=== PATIENT | female | born 1945 | race Caucasian/White ===

== ENCOUNTER 2019-08-02 11:09 | Outpatient (CLI) | payer MEDICARE, OTHER, SELFPAY ==
--- NOTE | ~2019-08-02 | XR_ITS ---
XR chest 2V DATE: 08/02/2019 11:36 INDICATION: Pre-procedure examination TECHNIQUE: PA view COMPARISON: 02/09/2017 FINDINGS: Normal heart size. No hilar or mediastinal enlargement. No pulmonary infiltrate or consol idation, pulmonary vascular congestion or pleural effusion or pneumothorax. Diffuse osteopenia. Plate and screws are noted in the proximal humerus. Diffuse idiopathic skeletal hyperostosis of the thoracic spine. Surgical clips, upper abdomen. IMPRESSION: No active cardiopulmonary disease Reviewed, dictated and finalized at location B. VISION JOURNALIST
--- NOTE | 2019-08-02 11:15 | ECG_ITS ---
Measurements Intervals [place] Rate: 85 P: 9 ND: 150 QRS: 1 QRSD: 86 T: -15 QT: 340 QTc: 406 Interpretive Statements SINUS RHYTHM BORDERLINE T WAVE ABNORMALITY- INFERIOR LEADS BORDERLINE ECG Electronically Signed On 08-02-2019 11:40:35 DELIVERY MANAGER by Chidi Lewis D.O.
[2019-08-02 11:43] LABS: Hematocrit 38.1 % (35.0-42.0); Hemoglobin 11.8 g/dL (11.7-13.8); Mean Corpuscular Hemoglobin 27.5 pg (27.0-31.0); Mean Corpuscular Volume 88.8 fL (78.0-102.0); Mean Platelet Volume 9.3 fl (9.2-11.8); Platelet Count Result 169 K/mm3 (150-420); Red Blood Count 4.29 M/mm3 (4.20-5.40); Red Cell Distribution Width 13.5 % (11.6-14.4); White Blood Count 6.4 K/mm3 (4.8-10.8)
[2019-08-02 11:49] LABS: Add Urine Microscopic? YES; Appearance Urine Clear (Clear); Bilirubin Urine Negative (Negative); Blood Urine Negative (Negative); Color Urine Yellow (Yellow); Glucose Urine UA 2+ (Negative); Ketones Urine Negative (Negative); Leukocyte Esterase Ur Negative LEU/UL (Negative); Nitrate Urine Negative (Negative); Protein Urine Negative (Negative); Specific Grav Ur 1.015 (1.010-1.020); Urobilinogen Urine 0.2 mg/dL (0.2-1.0)
[2019-08-02 12:14] LABS: RBC Urine None seen /hpf (0-2); Squamous Epithelial Cell Urine Rare /hpf (Few); WBC Urine None seen /hpf (0-3)
[2019-08-02 12:15] LABS: Bacteria Urine Trace /hpf
[2019-08-03 10:47] LABS: Alanine Aminotransferase 18 U/L (14-59); Alkaline Phosphatase 118 U/L (46-116); Anion Gap 13.8 mmol/L (7-16); Aspartate Amino Transferase 8 U/L (15-37); Bilirubin,Total 0.3 mg/dL (0.00-1.00); Blood Urea Nitrogen 23 mg/dL (7-18); Calcium 8.1 mg/dL (8.5-10.1); Carbon Dioxide 30 mmol/L (21-32); Chloride 104 mmol/L (98-108); Estimated Glomerular Filt Rate 53; Glucose 152 mg/dL (70-99); Osmolality Calculated 304 mOsm/kg (285-295); Potassium 3.8 mmol/L (3.5-5.1); Sodium 144 mmol/L (136-145); Total Protein 6.7 g/dL (6.4-8.2)
== END 2019-08-02 11:10 | disposition home or self-care (01) ==
PROVIDERS: Visit Provider Nurse Practitioner Family
DX: Z01.818 Encounter for other preprocedural examination (principal)
CPT/HCPCS: 36415; 71046; 80053; 81001; 85027; 93005

== ENCOUNTER 2019-08-12 11:14 | Observation (INO) | payer MEDICARE, OTHER, SELFPAY ==
[2019-08-05 08:50] VITALS: BMI 30.1
[2019-08-05 09:01] VITALS: BP 169/73; PULSE 82; RESP 18; TEMP 36.9; O2SAT 98
[2019-08-11] VITALS (14 sets, daily range): BP systolic 132–160; BP diastolic 53–90; PULSE 81–104; RESP 11–20; TEMP 36.3–36.7; O2SAT 91–100; BMI 29.3
[2019-08-11] MEDS: IBUPROFEN IV 800 MG/200 ML 800 MG/200 ML BAG 400 MG IVPB (06:45)
[2019-08-11 06:46] LABS: Glucose Point of Care 112 (65-105)
[2019-08-11] MEDS: LACTATED RINGERS 1,000 ML 30 ML IV CONT ×2 (06:59→09:44)
--- NOTE | 2019-08-11 07:11 | WPDANESEPPF ---
Anes - Initial Pre Proc Eval Procedure: Operation Date: 08/11/19 07:30 Proposed Procedures p Left Total Knee Arthroplasty(Left) - Charli Tello MD Date/Time: 08/11/19 07:11 Surgeon: Charli Tello MD Pre Op Diagnosis: Left Knee DJD Patient Data Age: 73 Gender: F Height: 1.55 m Weight: 70.4 kg Last Vital Signs Temp 36.7 C 08/11/19 06:01 Pulse 103 H 08/11/19 06:01 Resp 18 08/11/19 06:01 BP 160/90 H 08/11/19 06:01 Pulse Ox 100 08/11/19 06:01 Allergies Allergy/AdvReac Type Severity Reaction Status Date / Time No Known Allergies Allergy Verified 08/11/19 06:50 Home Medications Medication Instructions Recorded Confirmed Type [id number]-[id number] acid 0.4 1 tablet PO DAILY 06/04/19 08/11/19 History mg-lycopene 300 mcg-lutein 250 mcg tablet dulaglutide 0.75 mg/0.5 mL 0.75 mg SUB-Q WEEKLY #2 ml 06/22/19 08/11/19 Rx subcutaneous pen injector blood sugar diagnostic #100 each 07/29/19 08/11/19 Rx blood-glucose meter #1 each 07/29/19 08/11/19 Rx glimepiride 4 mg tablet 4 mg PO DAILY #90 tablet 07/29/19 08/11/19 Rx omeprazole 40 mg capsule,delayed 40 mg PO DAILY #90 cap 07/29/19 08/11/19 Rx release aspirin 81 mg tablet,delayed 81 mg PO DAILY #90 tablet 08/02/19 08/11/19 Rx release cholecalciferol (vitamin D3) 4,000 4,000 unit PO DAILY #90 cap 08/02/19 08/11/19 Rx unit capsule lancets 33 gauge #100 each 08/02/19 08/11/19 Rx acetaminophen [Tylenol Arthritis 650 mg PO Q12H PRN 08/05/19 08/11/19 History Pain] trazodone 100 mg PO HS 08/05/19 08/11/19 History mupirocin 2 % topical ointment 1 applic TOPICAL BID 5 Days #15 gm 08/09/19 08/11/19 Rx atorvastatin 40 mg tablet 20 mg PO DAILY #45 tablet 08/10/19 08/11/19 Rx Laboratory Tests 08/11/19 06:42 POC Capillary Glucose 112 mg/dl H mg/dl (65-105) Patient hx anesthesia problems: none Family hx anesthesia problems: none PMFSH Social History Social History Smoking status: Never smoker Alcohol intake: current Substance use: unknown Gender identity (if verbalized by the patient): Female Anes - Eval Final PreProcedure Day of Procedure 08/11/19 07:11 Patient weight: overweight Heart: regular rate and rhythm Lungs: clear to auscultation and normal air movement Airway: Mallampati scale class II Neurological: alert and oriented Last oral intake: >/= 8 hours ASA classification: III Emergent: no Anesthetic plan: proceed Anesthesia type and monitoring: general LMA and standard monitoring Informed Consent: The patient's anesthetic plan and its attendant risks and benefits were discussed with the patient/family/POA. Questions were solicited and answers provided to the satisfaction of the patient/family/POA.
--- NOTE | 2019-08-11 07:24 | WPDHPUPDATE1 ---
History and Physical Update Update Date/Time: 08/11/19 07:24 History and Physical has been reviewed, including an updated exam of the patient. There are NO changes in the patient's condition. Risks, benefits, and alternatives have been discussed and questions answered. Patient agrees to proceed with procedure.
[2019-08-11] MEDS: ceFAZolin 2 GM/D5W 50 ML 2 GM/50 ML BAG IVPB ×2 (07:43→16:46)
--- NOTE | 2019-08-11 07:43 | WPDANESPNB ---
Anes - Peripheral Nerve Block Date/Time: 08/11/19 07:43 I have discussed with the patient/family/POA the placement of a peripheral nerve block for post-operative pain management, including associated risks, benefits, complications, and side effects. Alternative methods of post-operative analgesia were detailed. Questions were solicited and answers provided to the satisfaction of the patient/family/POA. Time-Out: A pre-procedural Time-Out was completed immediately before starting the procedure and confirmed: Patient Identification, Site, Procedure, Patient Position and the Availability of Requisite Equipment. Clinical Indications: Acute post-operative pain management requested by the operative surgeon. Nerve Block Insertion Note Anes-nerve block: femoral left Patient position: supine Skin prep: chlorhexidine Needle: 22 gauge, stimulating, insulated echogenic needle. Needle length: 80 mm Technique: nerve stimulation lost at (mA) (0.3) and ultrasound Injectate: bupivacaine 0.5% with epi 5 mcg/ml (30cc) Observations: tolerated well Complications: none Procedure start time:: 736 Procedure end time:: 739
[2019-08-11] MEDS: GENTAMICIN BONE CEMENT REFOBACIN 1 EACH TOPICAL (08:44)
--- NOTE | 2019-08-11 09:51 | PM.OP ---
Procedure Note - Brief Procedure Note - Brief Date of procedure: 08/11/19 Pre-op diagnosis: Left Knee DJD Post-op diagnosis: same Procedure performed: L TKA Anesthesia: GETA Surgeon: Charli Tello MD Estimated blood loss (mL): 50 Drains: No Complications: No immediate complications Condition: stable Disposition: PACU
[2019-08-11 10:07] LABS: Glucose Point of Care 156 (65-105)
--- NOTE | 2019-08-11 10:55 | OP_ITS ---
DATE OF PROCEDURE: 08/11/2019 PREOPERATIVE DIAGNOSIS: Left knee DJD. POSTOPERATIVE DIAGNOSIS: Left knee DJD. PROCEDURE: Left total knee arthroplasty. ANESTHESIA: General. COMPLICATIONS: None. INDICATIONS: This is a 73-year-old female with a history of end-stage left knee DJD. She was indicated for left total knee arthroplasty. DESCRIPTION OF PROCEDURE: The patient was taken to the operating room in stable condition and placed in supine position. General anesthesia induced. The left lower extremity was prepped and draped sterilely from the toes to the thigh. A midline skin incision was made. Medial parapatellar arthrotomy was made. The patella was everted. IM lupe was placed in the femur. Distal femoral cut was made at 5 degrees of valgus removing approximately 9 mm of bone from the high side. Next, the knee was sized to 60, cutting block was placed in 3 degrees of external rotation in line with Whitesides line. Anterior, posterior, and chamfer cuts were made to the femur. Next, an IM lupe was placed in the tibia and a transtibial cut was made removing approximately 10 mm of bone from the high side of the tibia. The tibia was planed to a smooth surface. Posterior osteophytes were removed from the femur with an osteotome and a #67 trial tibial implant was placed in line with one-third medial aspect of the tibial tubercle and then, a 60 femoral component trial was placed and then a 10 CR poly trial was placed. The knee came out to full extension. There was good stability in varus and valgus stress in both flexion and extension. There was good AP stability and there was no excessive rollback in flexion. The patella tracked without any tilt. Trial instrumentation was removed. The knee joint was irrigated thoroughly and then, a 67 tibial component and a 60 femoral component were both cemented into place. A 10 CR E poly component was snapped into place as well. The knee came out to full extension until the cement was hardened, excess cement was removed from the implant. The tourniquet was deflated. The bleeders were cauterized. The knee was trialed once again. There was good stability to varus and valgus stress. Good AP stability. Good patellar tracking without any tilt and there was no excessive rollback in flexion. The knee joint then was irrigated thoroughly with sterile Betadine and sterile water for 3 minutes. The fascial layer then was approximated with #1 Vicryl suture, subcutaneous tissues with 2-0 Vicryl, and skin was approximated with amadou. Wounds were washed, placed sterile dressing. The patient was extubated. Jas I MT: Joy
--- NOTE | 2019-08-11 10:58 | SUR.PHASEI ---
1015: Dentures/partials given to patient and she placed them in her mouth.
--- NOTE | 2019-08-11 11:59 | PC.NURSE ---
Returned from OR per [ 1115 BED DENIES THE NEED FOR PAIN MEDS MOVES TOES, SENSATION NORMAL, PULSES INTACT, DRESSING DRY AND INTACT FAMILY AT BEDSIDE.]
[2019-08-11] MEDS: MORPHINE SULFATE 4 MG/ML INJ IV PUSH ×2 (13:02→20:06)
[2019-08-11] MEDS: ONDANSETRON INJ 4 MG/2 ML VIAL IV PUSH ×2 (13:11→20:32)
--- NOTE | 2019-08-11 13:41 | ADMGEN ---
This patient, Megan Rueda, was admitted to [facility] Surg Room 317-01. Patient/family oriented to hospital policies and general routines including ID bracelet, bed and alarms, visiting hours, pain management, procedures, bathroom and other care routines, personal items, smoking policy, room service/diet, and visiting hours. Valuables list has been completed. Information on how to activate the Rapid Response Team has been discussed. Patient/Family are encouraged to report perceived risks to care and to ask questions if they do not understand what they are told or what they should do.
[2019-08-11 18:16] LABS: Glucose Point of Care 195 (65-105)
[2019-08-11] MEDS: SODIUM CHLORIDE 0.9% IV 1,000 ML 125 ML IV CONT (18:36)
[2019-08-11] MEDS: CELECOXIB 200 MG CAPSULE PO (18:37)
[2019-08-11] MEDS: DOCUSATE SODIUM 100 MG CAPSULE PO (18:37)
[2019-08-11] MEDS: MUPIROCIN 2% OINT 22 GM TUBE 1 APPLIC TOPICAL (20:11)
[2019-08-11 20:23] LABS: Glucose Point of Care 157 (65-105)
[2019-08-11] MEDS: METOCLOPRAMIDE HCL INJ 10 MG/2 ML VIAL IV PUSH (22:01)
--- NOTE | ~2019-08-12 | XR_ITS ---
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 Subcutaneous gas with fluid and air in the joint and overlying skin amadou are consistent with recent surgery. No evidence of pe riprosthetic fracture. IMPRESSION: 1. Recent left total knee arthroplasty. Reviewed, dictated and finalized at location B. 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
[2019-08-12] MEDS: MORPHINE SULFATE 4 MG/ML INJ IV PUSH ×2 (00:29→04:10)
[2019-08-12] MEDS: ceFAZolin 2 GM/D5W 50 ML 2 GM/50 ML BAG IVPB ×2 (01:14→09:32)
[2019-08-12 02:19] VITALS: BP 123/67; PULSE 98; RESP 18; TEMP 36.7; O2SAT 96
[2019-08-12 06:53] VITALS: BP 140/68; PULSE 98; RESP 20; TEMP 36.9; O2SAT 94
[2019-08-12 07:15] LABS: Basophils Percent Auto 0.3 % (0.2-1.2); Eosinophils Percent Auto 0.4 % (0-4.4); Hematocrit 31.9 % (37.0-47.0); Hemoglobin 10.1 g/dL (12.0-15.0); Immature Granulocyte Absolute 0.04 K/mm3 (0.00-0.031); Immature Granulocyte Percent A 0.6 % (0-0.5); Lymphocytes Absolute Auto 0.92 K/mm3 (0.9-3.2); Lymphocytes Percent Auto 12.9 % (18.3-44.2); Mean Corpuscular HGB Conc 31.7 g/dl (32-36); Mean Corpuscular Hemoglobin 27.5 pg (26-34); Mean Corpuscular Volume 86.9 fl (80-100); Mean Platelet Volume 9.8 fl (7.4-10.4); Monocytes Absolute Auto 0.7 K/mm3 (0.1-0.6); Neutrophils Absolute Auto 5.4 K/mm3 (1.3-6.7); Neutrophils Percent Auto 75.8 % (45.5-73.1); Platelet Count Result 175 k/mm3 (150-375); Red Blood Count 3.67 M/mm3 (4.2-5.4); Red Cell Distribution Width 13.3 % (11.5-14.5); White Blood Count 7.1 K/mm3 (4.5-10.0)
[2019-08-12 07:48] LABS: Blood Urea Nitrogen 16 mg/dL (7-17); Calcium 8.9 mg/dL (8.4-10.2); Carbon Dioxide 27 mmol/L (22-30); Chloride 97 mmol/L (98-107); Estimated CRCL calculation 47 ml/min; Estimated Glomerular Filt Rate > 60; Glucose 146 mg/dL (65-105); Sodium 133 mmol/L (137-145)
--- NOTE | 2019-08-12 08:39 | WPDANESPN ---
Anes - Prog Note Post-Op Date/Time: 08/12/19 08:39 Cardiovascular status: normal Respiratory status: normal Airway patency: baseline Mental status: baseline Post-Op hydration status: normal Vital Signs: Last Vital Signs Temp 36.9 C 08/12/19 06:53 Pulse 98 08/12/19 06:53 Resp 20 08/12/19 06:53 BP 140/68 08/12/19 06:53 Pulse Ox 94 08/12/19 06:53 I/O: Intake & Output 08/11/19 08/12/19 08/12/19 23:59 07:59 15:59 Intake Total 850 1180 Output Total 200 800 Balance 650 380 Laboratory Tests 08/12/19 07:02 08/12/19 07:02 08/11/19 08/11/19 08/11/19 10:05 16:40 20:19 WBC RBC Hgb Hct MCV MCH MCHC RDW Plt Count MPV Immature Gran % (Auto) Neut % (Auto) Lymph % (Auto) Angelina % (Auto) Eos % (Auto) Baso % (Auto) Lymph # (Auto) Angelina # (Auto) Eos # (Auto) Baso # (Auto) Abs Immat Gran (auto) Absolute Neuts (auto) Absolute Nucleated RBC Nucleated RBC % Sodium Potassium Chloride Carbon Dioxide BUN Creatinine Estim Creat Clear Calc Estimated GFR Glucose POC Capillary Glucose 156 H 195 H 157 H Calcium 08/12/19 08/12/19 07:02 07:02 WBC 7.1 RBC 3.67 L Hgb 10.1 L Hct 31.9 L MCV 86.9 MCH 27.5 MCHC 31.7 L RDW 13.3 Plt Count 175 MPV 9.8 Immature Gran % (Auto) 0.6 H Neut % (Auto) 75.8 H Lymph % (Auto) 12.9 L Angelina % (Auto) 10.0 H Eos % (Auto) 0.4 Baso % (Auto) 0.3 Lymph # (Auto) 0.92 Angelina # (Auto) 0.7 H Eos # (Auto) 0.0 Baso # (Auto) 0.0 Abs Immat Gran (auto) 0.04 H Absolute Neuts (auto) 5.4 Absolute Nucleated RBC 0.0 Nucleated RBC % 0.0 Sodium 133 L Potassium 4.0 Chloride 97 L Carbon Dioxide 27 BUN 16 Creatinine 0.80 Estim Creat Clear Calc 47 Estimated GFR > 60 Glucose 146 H POC Capillary Glucose Calcium 8.9 Post-procedural complaints: none Patient Feedback: Patient satisfied with anesthetic care.
[2019-08-12] MEDS: SODIUM CHLORIDE 0.9% IV 1,000 ML 125 ML IV CONT (09:23)
[2019-08-12] MEDS: CELECOXIB 200 MG CAPSULE PO ×2 (09:24→16:22)
[2019-08-12] MEDS: GLIMEPIRIDE 2 MG TABLET 4 MG PO (09:24)
[2019-08-12] MEDS: ATORVASTATIN 20 MG TABLET PO (09:25)
[2019-08-12] MEDS: ASPIRIN 325 MG ENTERIC TABLET 650 MG PO (09:25)
[2019-08-12] MEDS: CHOLECALCIFEROL 1,000 UNIT TABLET 4000 UNITS PO (09:25)
[2019-08-12] MEDS: DOCUSATE SODIUM 100 MG CAPSULE PO ×2 (09:26→16:22)
[2019-08-12] MEDS: MULTIVITAMINS /C LUTEIN (CENTRUM SILVER) TABLET *BKC 1 TAB PO (09:26)
[2019-08-12] MEDS: PANTOPRAZOLE 40 MG TABLET PO (09:26)
[2019-08-12] MEDS: MUPIROCIN 2% OINT 22 GM TUBE 1 APPLIC TOPICAL ×2 (09:34→21:34)
[2019-08-12 09:46] LABS: Glucose Point of Care 145 (65-105)
--- NOTE | 2019-08-12 10:49 | PM.PNORT ---
Progress Note: A&P Assessment and Plan (1) Status post total knee replacement, left: Code(s): Z96.652 - Presence of left artificial knee joint Status: Acute Assessment and Plan: POD #1: Left TKA Continue PT/OT. Walker. High Fall Risk. WBAT. Continue pain management. Ice. No pillows under knee. Continue SCDs. Incentive spirometry. Zofran for nausea. Monitor dressing. To be changed prior to discharge. Dispo: Home with Home Health pending progress with PT/OT. Subjective Subjective Date/Time Seen: 08/12/19 0840 Post Op day: 1 Principal diagnosis: Left Knee DJD Interval history: Left TKA POD #1 Complaints of nausea. No vomitting. Decreased appetite. No anti-emetics administered since 8:00 PM last night. Review of Systems Review of Systems: All systems reviewed & are unremarkable except as noted in HPI and below Constitutional: Constitutional: Denies fever(s) and Denies headache(s) Cardiovascular: Cardiovascular: Denies chest pain, Denies diaphoresis, Reports lightheadedness, Denies palpitations and Denies dyspnea Respiratory: Respiratory: Denies dyspnea Gastrointestinal: Gastrointestinal: Denies abdominal pain, Denies constipation, Reports nausea and Denies vomiting Genitourinary: Genitourinary: Reports nocturia and Denies dysuria Musculoskeletal: Musculoskeletal: Reports arthralgias (Left Knee ), Reports joint swelling (Left Knee ) and Reports limited range of motion (ROM limited due to recent surgical intervention LEFT Knee ) Endocrine: Endocrine: Denies palpitations Exam Const: General: comfortable and no acute distress Resp: Effort & Inspection: normal respiratory effort Cardio: Rate: regular rate Rhythm: regular rhythm GI: GI Palp: Yes Soft to palpation, No Tenderness to palpation present (GI) and No Guarding due to palpation present (GI) Skin: Wounds: wounds noted Other: Incision c/d/i. No surrounding redness/warmth. No hematoma. Mild ecchymosis. No wound dehiscence Neuro: Cognition (Neuro): normal cognition Other: NV intact aside from block. Moves toes. Sensation intact to light touch. +ankle dorsiflexion/plantarflexion. Extrem: Right upper extremity: normal to inspection, full ROM and normal capillary refill Left upper extremity: normal to inspection, full ROM and normal capillary refill Right lower extremity: normal to inspection, full ROM (ROM limited due to recent surgical intervention ) and knee (previous right TKA incision well-healed ) Details: normal ROM; no tenderness and no swelling Left lower extremity: normal to inspection, normal capillary refill and knee Details: tenderness (diffuse ), swelling (moderate consistent to recent surgery ), abnormal ROM (limited due to recent surgery ) and ecchymosis (as expected with recent surgery. NO hematoma. ) Other: Incision left TKA dressing c/d/i. No hematoma. No signs of infection. No wound dehiscence. Psych: Mental Status: mental status grossly normal Objective Data Vital Signs Vital Signs: Vital Signs - 24 hr 08/11/19 10:55 08/11/19 11:05 08/11/19 11:25 Temperature 36.5 C Pulse Rate 83 86 93 Respiratory Rate 11 L 14 16 Blood Pressure 147/67 H 136/69 146/57 H Pulse Oximetry 96 95 91 08/11/19 11:40 08/11/19 11:41 08/11/19 12:10 Temperature Pulse Rate 81 86 89 Respiratory Rate 16 14 16 Blood Pressure 132/75 142/64 H Pulse Oximetry 99 95 96 08/11/19 15:16 08/11/19 21:30 08/12/19 02:19 Temperature 36.6 C 36.4 C L 36.7 C Pulse Rate 101 H 104 H 98 Respiratory Rate 16 20 18 Blood Pressure 145/53 H 156/76 H 123/67 Pulse Oximetry 92 96 96 08/12/19 06:53 Temperature 36.9 C Pulse Rate 98 Respiratory Rate 20 Blood Pressure 140/68 Pulse Oximetry 94 Intake/Output Intake/Output: Intake & Output 08/09/19 08/10/19 08/11/19 08/12/19 23:59 23:59 23:59 23:59 Intake Total 1350 1450 Output Total 200 800 Balance 1150 650 Meds/Results Medications: Active Medications Generic Name D
[2019-08-12 13:01] LABS: Glucose Point of Care 139 (65-105)
--- NOTE | 2019-08-12 15:05 | PM.IMCN ---
Assessment and Plan Assessment and plan (1) Status post total knee replacement, left: Code(s): Z96.652 - Presence of left artificial knee joint Status: Acute Assessment and Plan: POD1 per Dr. Tello. Patient is doing well postoperatively Pain management, PT/OT, post op management, DVT ppx per Dr. Tello Monitor (2) Left knee DJD: Qualifiers: Osteoarthritis type: primary Qualified Code(s): M17.12 - Unilateral primary osteoarthritis, left knee Code(s): M17.12 - Unilateral primary osteoarthritis, left knee Status: Acute Assessment and Plan: POD 1 L total knee arthroplasty. Please see above a/p (3) GERD without esophagitis: Code(s): K21.9 - Gastro-esophageal reflux disease without esophagitis Status: Acute Assessment and Plan: Stable at this moment Continue home medications Tums PRN (4) Type 2 diabetes mellitus: Code(s): E11.9 - Type 2 diabetes mellitus without complications Status: Acute Assessment and Plan: BGL reasonably controlled. BGL in mid 100s today Hypoglycemia, SSI, ACHS accuchecks Continue home glimeperide. Hold [facility] Check A1c tomorrow should patient stay overnight (5) Hyperlipidemia associated with type 2 diabetes mellitus: Code(s): E11.69 - Type 2 diabetes mellitus with other specified complication; E78.5 - Hyperlipidemia, unspecified Status: Acute Assessment and Plan: No acute issues Continue home atorvastatin Additional Plan Thank you for allowing the Hospitalist team to care for this patient during their stay. We will continue to follow with you. Please call with any questions HPI Data of Consult Consult date: 08/12/19 Requesting Physician: Charli Tello MD Primary Care Provider: UNKNOWN,DOCTOR Consult Narrative Narrative: Megan Rueda is a 73 year old female with history of DMII, HLD, RA, and DJD of left knee POD 1 left total knee arthroplasty per Dr. Tello; Hospitalist Service has been consulted for medical management of comorbid conditions. Patient states she started having left knee pain after having what sounds like a left knee arthroscopy 2 years ago for a torn meniscus; she states ever since then the pain has progressively worsened. She attempted PT/OT, steroid injections, and other pain management to a point that nothing was alleviating pain and she elected to proceed with the left total knee arthroplasty. She states left knee pain at its worse was 10/10, but today is about a 0/10 laying in bed, postoperatively. She denies any decrease sensation in her leg. She notes she has RA in multiple joints. Today she feels slightly dizzy/lightheaded, but occasional. N/V yesterday but none today. She has no other complaints. Denies f/c/ns, headaches, changes in vision/hearing, n/v/d/c today, abdominal pain, cp/palpitations, sob, cough, dysuria, hematuria, changes in BM, melena, brbpr, calf pain/swelling, s/sx of stroke. Review of Systems Review of Systems: All systems reviewed & are unremarkable except as noted in HPI and below PMFSH Past Medical History Medical History Acute pain of left knee GERD without esophagitis Hyperlipidemia associated with type 2 diabetes mellitus Hypothyroidism Kidney disease Rheumatoid arthritis Type 2 diabetes mellitus Vision loss Vitamin D deficiency Surgical History Surgical History H/O right nephrectomy H/O total thyroidectomy History of appendectomy History of rotator cuff surgery Hx of cholecystectomy Hx of tonsillectomy Status post total knee replacement, left Family History Family History (Reviewed 08/12/19 @ 15:51 by Isaias Lamas
[2019-08-12 16:01] VITALS: BP 138/74; PULSE 101; RESP 18; O2SAT 97
[2019-08-12] MEDS: CALCIUM CARBONATE (TUMS) 500 MG (200 MG ELEMENTAL) PO (16:22)
[2019-08-12 17:23] LABS: Glucose Point of Care 138 (65-105)
[2019-08-12] MEDS: TRAZODONE HCL 50 MG TABLET 100 MG PO (21:32)
[2019-08-12 22:00] VITALS: BP 140/50; PULSE 100; RESP 20; TEMP 37; O2SAT 97
[2019-08-12 23:09] LABS: Glucose Point of Care 155 (65-105)
[2019-08-13 06:00] VITALS: BP 151/64; PULSE 105; RESP 20; TEMP 36.9; O2SAT 97
[2019-08-13 06:03] LABS: Basophils Percent Auto 0.3 % (0.2-1.2); Eosinophils Absolute Auto 0.1 K/mm3 (0-0.3); Eosinophils Percent Auto 0.9 % (0-4.4); Hematocrit 31.4 % (37.0-47.0); Hemoglobin 9.8 g/dL (12.0-15.0); Immature Granulocyte Absolute 0.04 K/mm3 (0.00-0.031); Immature Granulocyte Percent A 0.6 % (0-0.5); Lymphocytes Absolute Auto 1.17 K/mm3 (0.9-3.2); Lymphocytes Percent Auto 18.1 % (18.3-44.2); Mean Corpuscular HGB Conc 31.2 g/dl (32-36); Mean Corpuscular Hemoglobin 27.5 pg (26-34); Mean Platelet Volume 10.1 fl (7.4-10.4); Monocytes Absolute Auto 0.7 K/mm3 (0.1-0.6); Monocytes Percent Auto 10.2 % (2.6-8.5); Neutrophils Absolute Auto 4.5 K/mm3 (1.3-6.7); Neutrophils Percent Auto 69.9 % (45.5-73.1); Platelet Count Result 154 k/mm3 (150-375); Red Blood Count 3.57 M/mm3 (4.2-5.4); Red Cell Distribution Width 13.4 % (11.5-14.5); White Blood Count 6.5 K/mm3 (4.5-10.0)
[2019-08-13 06:22] LABS: Blood Urea Nitrogen 20 mg/dL (7-17); Calcium 9.3 mg/dL (8.4-10.2); Carbon Dioxide 30 mmol/L (22-30); Chloride 100 mmol/L (98-107); Estimated CRCL calculation 43 ml/min; Estimated Glomerular Filt Rate > 60; Glucose 132 mg/dL (65-105); Potassium 3.9 mmol/L (3.4-5.0); Sodium 138 mmol/L (137-145)
[2019-08-13 08:00] VITALS: PULSE 80; RESP 20; O2SAT 97
[2019-08-13] MEDS: CELECOXIB 200 MG CAPSULE PO (08:20)
[2019-08-13] MEDS: GLIMEPIRIDE 2 MG TABLET 4 MG PO (08:21)
[2019-08-13] MEDS: ASPIRIN 325 MG ENTERIC TABLET 650 MG PO (08:21)
[2019-08-13] MEDS: CHOLECALCIFEROL 1,000 UNIT TABLET 4000 UNITS PO (08:22)
[2019-08-13] MEDS: MULTIVITAMINS /C LUTEIN (CENTRUM SILVER) TABLET *BKC 1 TAB PO (08:23)
[2019-08-13] MEDS: ATORVASTATIN 20 MG TABLET PO (08:23)
[2019-08-13] MEDS: DOCUSATE SODIUM 100 MG CAPSULE PO (08:23)
[2019-08-13] MEDS: CALCIUM CARBONATE (TUMS) 500 MG (200 MG ELEMENTAL) PO (08:23)
[2019-08-13] MEDS: PANTOPRAZOLE 40 MG TABLET PO (08:24)
[2019-08-13] MEDS: MUPIROCIN 2% OINT 22 GM TUBE 1 APPLIC TOPICAL (08:28)
--- NOTE | 2019-08-13 09:51 | PM.PNORT ---
Progress Note: A&P Assessment and Plan (1) Status post total knee replacement, left: Code(s): Z96.652 - Presence of left artificial knee joint Status: Acute Assessment and Plan: POD #2: Left TKA Continue PT/OT. Walker. High Fall Risk. WBAT. Continue pain management. Ice. No pillows under knee. Continue SCDs. Incentive spirometry. Monitor dressing. To be changed prior to discharge. Dispo: Home with Home Health likely today. Subjective Subjective Date/Time Seen: 08/13/19 09:51 Post Op day: 2 (Left TKA ) Principal diagnosis: Left Knee DJD Review of Systems Review of Systems: All systems reviewed & are unremarkable except as noted in HPI and below Constitutional: Constitutional: Denies fever(s) and Denies headache(s) Cardiovascular: Cardiovascular: Denies chest pain, Denies diaphoresis, Reports lightheadedness, Denies palpitations and Denies dyspnea Respiratory: Respiratory: Denies dyspnea Gastrointestinal: Gastrointestinal: Denies abdominal pain, Denies constipation, Denies nausea and Denies vomiting Genitourinary: Genitourinary: Denies dysuria Musculoskeletal: Musculoskeletal: Reports arthralgias (Left Knee ), Reports joint swelling (Left Knee ) and Reports limited range of motion (ROM limited due to recent surgical intervention LEFT Knee ) Endocrine: Endocrine: Denies palpitations Exam Const: General: comfortable and no acute distress Resp: Effort & Inspection: normal respiratory effort Cardio: Rate: regular rate Rhythm: regular rhythm GI: GI Palp: Yes Soft to palpation, No Tenderness to palpation present (GI) and No Guarding due to palpation present (GI) Skin: Wounds: wounds noted Other: Incision c/d/i. No surrounding redness/warmth. No hematoma. Mild ecchymosis. No wound dehiscence Neuro: Cognition (Neuro): normal cognition Other: NV intact aside from block. Moves toes. Sensation intact to light touch. +ankle dorsiflexion/plantarflexion. Extrem: Right upper extremity: normal to inspection, full ROM and normal capillary refill Left upper extremity: normal to inspection, full ROM and normal capillary refill Right lower extremity: normal to inspection, full ROM (ROM limited due to recent surgical intervention ) and knee (previous right TKA incision well-healed ) Details: normal ROM; no tenderness and no swelling Left lower extremity: normal to inspection, normal capillary refill and knee Details: tenderness (diffuse ), swelling (moderate consistent to recent surgery ), abnormal ROM (limited due to recent surgery ) and ecchymosis (as expected with recent surgery. NO hematoma. ) Other: Incision left TKA dressing c/d/i. No hematoma. No signs of infection. No wound dehiscence. Psych: Mental Status: mental status grossly normal Objective Data Vital Signs Vital Signs: Vital Signs - 24 hr 08/12/19 16:01 08/12/19 22:00 08/13/19 06:00 Temperature 37.0 C 36.9 C Pulse Rate 101 H 100 105 H Respiratory Rate 18 20 20 Blood Pressure 138/74 140/50 L 151/64 H Pulse Oximetry 97 97 97 Intake/Output Intake/Output: Intake & Output 08/10/19 08/11/19 08/12/19 08/13/19 23:59 23:59 23:59 23:59 Intake Total 1350 2264 400 Output Total 200 800 600 Balance 1150 1464 -200 Meds/Results Medications: Active Medications Generic Name Dose Route Start Last Admin Trade Name Freq PRN Reason Stop Dose Admin Acetaminophen 650 mg 08/11/19 09:55 Tylenol Tablet PO Q12H PRN MILD Pain Aspirin 650 mg 08/12/19 09:00 08/13/19 08:21 Aspirin Ec PO 650 mg DAILY SENG Administration Atorvastatin Calcium 20 mg 08/12/19 09:00 08/13/19 08:23 Lipitor PO 20 mg DAILY SENG Administration Calcium Carbonate 200 mg 08/12/19 15:48 08/13/19 08:23 Tums PO 200 mg Q6H PRN Administration Indigestion Celecoxib 200 mg 08/11/19 17:00 08/13/19 08:20 Celebrex PO 200 mg BIDWM SENG Administration Dextrose 12.5 gm 08/11/19 19:58 Dextrose 50% Sy
--- NOTE | 2019-08-13 10:11 | PM.IMPN ---
Progress Note: A&P Assessment and Plan (1) Status post total knee replacement, left: Code(s): Z96.652 - Presence of left artificial knee joint Status: Acute Assessment and Plan: POD2 per Dr. Tello. Patient is doing well postoperatively Pain management, PT/OT, post op management, DVT ppx per Dr. Tello D/c today (2) Left knee DJD: Qualifiers: Osteoarthritis type: primary Qualified Code(s): M17.12 - Unilateral primary osteoarthritis, left knee Code(s): M17.12 - Unilateral primary osteoarthritis, left knee Status: Acute Assessment and Plan: POD 2 L total knee arthroplasty. Please see above a/p (3) GERD without esophagitis: Code(s): K21.9 - Gastro-esophageal reflux disease without esophagitis Status: Acute Assessment and Plan: Stable at this moment Continue home medications Tums PRN (4) Type 2 diabetes mellitus: Code(s): E11.9 - Type 2 diabetes mellitus without complications Status: Acute Assessment and Plan: BGL reasonably controlled. BGL in mid 100s today. A1c earlier in stay was 7.2 Continue home glimeperide at discharge Continue Trulicity at discharge (5) Hyperlipidemia associated with type 2 diabetes mellitus: Code(s): E11.69 - Type 2 diabetes mellitus with other specified complication; E78.5 - Hyperlipidemia, unspecified Status: Acute Assessment and Plan: No acute issues Continue home atorvastatin Additional Plan Thank you for allowing the Hospitalist team to care for this patient during their stay. We will continue to follow with you. Please call with any questions Subjective Date/time seen: 08/13/19 10:11 Interval history: Patient is a 73 yo F with history of DMII, HLD, RA, and DJD of left knee POD 2 left total knee arthroplasty per Dr. Tello; Hospitalist Service has been consulted for medical management of comorbid conditions. Patient is doing well today; left knee pain well controlled. Patient did well with PT/OT. [place] jittery this morning, but has since subsided. Otherwise no complaints. Denies f/c/ns, headaches, changes in vision/hearing, n/v/d/c today, abdominal pain, cp/palpitations, sob, cough, dysuria, hematuria, changes in BM, melena, brbpr, calf pain/swelling, s/sx of stroke. Review of Systems Review of Systems: All systems reviewed & are unremarkable except as noted in HPI and below Exam Narrative: Exam Narrative: Patient sitting upright in chair at time of visit Const: General: no acute distress and well developed Nutritional Appearance: obese Orientation/consciousness: patient oriented x3 HENMT: Head: normal to inspection General nose exam: Normal nares present Face and sinus: normal facial exam Mouth: Yes moist mucous membranes Throat: posterior oropharynx normal Eyes: General: appearance normal, both eyes and all related structures Sclera: sclerae normal Pupils: Equal, round and reactive pupils present EOM: EOMs intact bilaterally Neck: Neck: trachea midline, supple and no JVD Resp: Effort & Inspection: normal respiratory effort Auscultation: clear to auscultation bilaterally Cardio: Rate: regular rate Rhythm: regular rhythm Heart sounds: no gallops, no murmurs and no rubs GI: Inspection: non-distended Auscultation: normal bowel sounds Skin: General skin exam: normal color and no rashes or lesions noted Neuro: General: patient oriented x3 and no focal motor deficits Cranial nerves: Yes Equal, round and reactive pupils present Other: l Extrem: Right lower extremity: no edema Left lower extremity: no edema Other: no calf ttp/swelling Psych: Mental Status: mental status grossly normal Affect: normal affect Objective Data Vital Signs Vital Signs: Vital Signs - 24 hr
--- NOTE | 2019-08-13 11:30 | PM.DS ---
DS: Diagnosis Admitting Diagnosis Admitting Diagnosis: Unilateral primary osteoarthritis, left knee DS: Summary Hospital Course Reason for hospitalization: Left TKA Hospital Course: 73 year old female admitted s/p left TKA for postoperative medical management and PT/OT. Patient progressed well with PT/OT. She had a stable hospitalization. She was cleared for discharge by the medicine team and PT/OT. She will go home with home health and follow up in [address] Tello. Status at Discharge Functional status at discharge: uses cane/walker Overall status at discharge: patient is progressing back to baseline Time Spent with Patient Time attestation: Total time spent providing and/or coordinating discharge services: Exam Const: General: comfortable and no acute distress Resp: Effort & Inspection: normal respiratory effort Cardio: Rate: regular rate Rhythm: regular rhythm GI: GI Palp: Yes Soft to palpation, No Tenderness to palpation present (GI) and No Guarding due to palpation present (GI) Skin: Wounds: wounds noted Other: Incision c/d/i. No surrounding redness/warmth. No hematoma. Mild ecchymosis. No wound dehiscence Neuro: Cognition (Neuro): normal cognition Other: NV intact aside from block. Moves toes. Sensation intact to light touch. +ankle dorsiflexion/plantarflexion. Extrem: Right upper extremity: normal to inspection, full ROM and normal capillary refill Left upper extremity: normal to inspection, full ROM and normal capillary refill Right lower extremity: normal to inspection, full ROM (ROM limited due to recent surgical intervention ) and knee (previous right TKA incision well-healed ) Left lower extremity: normal to inspection, normal capillary refill and knee Other: Incision left TKA dressing c/d/i. No hematoma. No signs of infection. No wound dehiscence. Psych: Mental Status: mental status grossly normal DS: Data Data Completed and Pending Labs on day of discharge: Labs from last 24 hours 08/13/19 08/13/19 08/12/19 05:33 05:33 23:07 WBC 6.5 RBC 3.57 L Hgb 9.8 L Hct 31.4 L MCV 88.0 MCH 27.5 MCHC 31.2 L RDW 13.4 Plt Count 154 MPV 10.1 Immature Gran % (Auto) 0.6 H Neut % (Auto) 69.9 Lymph % (Auto) 18.1 L [place] % (Auto) 10.2 H Eos % (Auto) 0.9 Baso % (Auto) 0.3 Lymph # (Auto) 1.17 [place] # (Auto) 0.7 H Eos # (Auto) 0.1 Baso # (Auto) 0.0 Abs Immat Gran (auto) 0.04 H Absolute Neuts (auto) 4.5 Absolute Nucleated RBC 0.0 Nucleated RBC % 0.0 Sodium 138 Potassium 3.9 Chloride 100 Carbon Dioxide 30 BUN 20 H Creatinine 0.90 Estim Creat Clear Calc 43 Estimated GFR > 60 Glucose 132 H POC Capillary Glucose 155 H Calcium 9.3 08/12/19 08/12/19 17:19 12:23 WBC RBC Hgb Hct MCV MCH MCHC RDW Plt Count MPV Immature Gran % (Auto) Neut % (Auto) Lymph % (Auto) [place] % (Auto) Eos % (Auto) Baso % (Auto) Lymph # (Auto) [place] # (Auto) Eos # (Auto) Baso # (Auto) Abs Immat Gran (auto) Absolute Neuts (auto) Absolute Nucleated RBC Nucleated RBC % Sodium Potassium Chloride Carbon Dioxide BUN Creatinine Estim Creat Clear Calc Estimated GFR Glucose POC Capillary Glucose 138 H 139 H Calcium Discharge Plan Discharge Patient Disposition: Home, Self-Care Discharge Instructions: Orthopedic Discharge Instructions: Your dressing will be changed today prior to your discharge. You will be sent with one additional dressing to be changed by the home health RN in 5 days. Your amadou will be removed on the 14th day after surgery. You may shower but DO NOT submerge in a bath tub until released by Dr. Tello. Please walk with a walker at all times until released by Dr. Tello. Do not drive until released by Dr. Tello. Continue use of your ice machine. Protect your skin with a sheet/towel prior to applying ice
== END 2019-08-13 12:20 | disposition home health service (06) ==
PROVIDERS: Physician Assistant; Admitting Provider Orthopaedic Surgery; Visit Provider Orthopaedic Surgery
PROC: (CPT 27447; principal; 2019-08-11 07:30)
DX: M17.12 Unilateral primary osteoarthritis, left knee (principal); G89.18 Other acute postprocedural pain; G89.4 Chronic pain syndrome; K21.9 Gastro-esophageal reflux disease without esophagitis; E11.69 Type 2 diabetes mellitus with other specified complication; E78.5 Hyperlipidemia, unspecified; E89.0 Postprocedural hypothyroidism; M06.9 Rheumatoid arthritis, unspecified; E55.9 Vitamin D deficiency, unspecified; H54.7 Unspecified visual loss; Z79.82 Long term (current) use of aspirin; Z79.84 Long term (current) use of oral hypoglycemic drugs; Z79.899 Other long term (current) drug therapy; Z90.5 Acquired absence of kidney; Z96.651 Presence of right artificial knee joint
CPT/HCPCS: 27447; 64447; 36415; 73560; 80048; 85025; 97110; 97116; 97161; 97165; 97530; 97535; A9270; C1713; C1776; G0378; J0171; J0690; J1100; J1741; J2250; J2270; J2370; J2405; J2704; J2765; J2795; J3010; J3370; J7030; J7120

== ENCOUNTER 2019-09-07 15:36 | Outpatient (RCR) | payer MEDICARE, SELFPAY ==
--- NOTE | 2019-09-07 16:20 | PTOPEVAL ---
Thank you for referring this patient to [facility]. Please review, sign, date and return this plan of care [facility]. I agree with and certify that the following plan of care is medically necessary. Referring Physician Date Admitting Provider: Attending Provider: Charli Tello MD Referring Provider: *PT Outpatient Evaluation Start: 09/07/19 15:37 Freq: Status: Active Protocol: Document 09/07/19 15:38 JTF (Rec: 09/07/19 16:13 [facility] [id number]) Therapy Assessment Status Assessment Status Assessment Status Evaluation Outpatient Past Medical History Neurological History Hx Neurological Disorders No Significant History Cardiovascular History Hx Cardiac Catheterization Yes Hx Hypercholesterolemia Yes Hx Other Cardiac Disorders Yes: DENIES ANY CARDIAC SYMPTOMS Respiratory History Hx Respiratory Disorders No Significant History Gastrointestinal History Hx Appendectomy Yes Hx Cholecystectomy Yes Hx Gall Bladder Disease Yes Hx Gastroesophageal Reflux Disease Yes Genitourinary History Hx Nephrectomy Yes: 1961 RT. NEPHRECTOMY- STATES STOPPED FUNCTIONING Musculoskeletal History Hx Arthritis Yes Hx Back Pain Yes Hx Degenerative Disk Disease Yes Hx Joint Replacement Yes Hx Orthopedic Surgery Yes Hx Osteoporosis Yes Hx Other Musculoskeletal Disorders Yes: DJD LT KNEE Hematological History Hx Blood Transfusions Yes: 2018 X 3 Endocrine History Hx Diabetes Yes Hx Thyroidectomy Yes: PARTIAL THYROIDECTOMY HEENT History Hx Cataracts Yes: MELANIE CATARACTS REMOVED Hx Tonsillectomy Yes Integumentary History Hx Skin Disorders No Significant History Reproductive History Hx Reproductive Disorders No Significant History Psychosocial History Hx Psychiatric Disorders No Significant History Pain History Has Past Pain Affected Your Daily Life Yes Effective Methods of Pain Control TYLENOL ARTHRITIS Anesthesia History Hx Post-Op Nausea/Vomiting Yes Evaluation Information Problem Diagnosis L TKA Onset 08/11/19 Subjective Information patient underwent a L TKA on Query Text:As Reported By Patient/ 08/11/19. she has had routine Family healing up to this point. she is walking with a cane, but would like to improve her mobility, strength, and ambulation. she reports she would like to get back to
--- NOTE | 2019-09-29 10:57 | PCPTNOTE ---
09/29/19-pt called and cancelled apt today.-HM.
== END 2019-10-12 14:31 | disposition home or self-care (01) ==
LOC: CHSPT 15:36
PROVIDERS: Visit Provider Orthopaedic Surgery
DX: Z96.652 Presence of left artificial knee joint (principal)
CPT/HCPCS: 97016; 97110; 97161; 97530

== ENCOUNTER 2020-08-21 09:52 | Outpatient (NON) | payer MEDICARE, SELFPAY ==
[2020-08-21 10:34] LABS: Alanine Aminotransferase 21 U/L (14-59); Albumin Level 3.9 g/dL (3.4-5.0); Alkaline Phosphatase 127 U/L (46-116); Anion Gap 8 mmol/L (8-16); Aspartate Amino Transferase 13 U/L (15-37); Bilirubin,Total 0.3 mg/dL (0.00-1.00); Blood Urea Nitrogen 28 mg/dL (7-18); Carbon Dioxide 29 mmol/L (21-32); Chloride 102 mmol/L (98-108); Cholesterol 110 mg/dL (0-200); Estimated Glomerular Filt Rate 39; Glucose 195 mg/dL (70-99); HDL Direct 26 mg/dL (40-60); LDL Cholesterol Calculated 59 mg/dL (<130); Osmolality Calculated 298 mOsm/kg (285-295); Potassium 4.6 mmol/L (3.5-5.1); Sodium 139 mmol/L (136-145); Total Protein 6.8 g/dL (6.4-8.2); Triglycerides 123 mg/dL (0-150)
[2020-08-21 11:35] LABS: Hemoglobin A1C 7.1 % (<5.7)
[2020-08-24 12:14] LABS: Vitamin D 25 Hydroxy 40 ng/mL (30-100)
== END 2020-08-21 09:53 ==
LOC: CHSLAB 09:54
PROVIDERS: Visit Provider Nurse Practitioner Family
DX: Z79.899 Other long term (current) drug therapy (principal); E55.9 Vitamin D deficiency, unspecified; E11.9 Type 2 diabetes mellitus without complications; Z00.00 Encounter for general adult medical examination without abnormal findings; E78.5 Hyperlipidemia, unspecified
CPT/HCPCS: 36415; 80053; 80061; 82306; 83036

== ENCOUNTER 2020-09-04 10:20 | Outpatient (CLI) | payer MEDICARE, SELFPAY ==
[2020-09-04 11:08] LABS: Alanine Aminotransferase 20 U/L (14-59); Albumin Level 3.8 g/dL (3.4-5.0); Alkaline Phosphatase 150 U/L (46-116); Anion Gap 9 mmol/L (8-16); Aspartate Amino Transferase 14 U/L (15-37); Bilirubin,Total 0.5 mg/dL (0.00-1.00); Blood Urea Nitrogen 16 mg/dL (7-18); Calcium 9.1 mg/dL (8.5-10.1); Carbon Dioxide 31 mmol/L (21-32); Chloride 102 mmol/L (98-108); Estimated Glomerular Filt Rate 54; Glucose 150 mg/dL (70-99); Osmolality Calculated 298 mOsm/kg (285-295); Potassium 3.9 mmol/L (3.5-5.1); Sodium 142 mmol/L (136-145); Total Protein 6.8 g/dL (6.4-8.2)
== END 2020-09-04 10:21 | disposition home or self-care (01) ==
LOC: CHSLAB 10:22
PROVIDERS: PCP Nurse Practitioner Family; Visit Provider Nurse Practitioner Family
DX: R79.89 Other specified abnormal findings of blood chemistry (principal)
CPT/HCPCS: 36415; 80053

== ENCOUNTER 2021-04-16 16:34 | Emergency (ER) | payer MEDICARE, SELFPAY ==
[2021-04-16 16:58] VITALS: BP 140/76; PULSE 96; RESP 16; TEMP 37; O2SAT 97
[2021-04-16 17:12] LABS: Basophils Absolute Auto 0.03 K/mm3 (0.00-0.10); Basophils Percent Auto 0.4 % (0.0-1.0); Eosinophils Absolute Auto 0.06 K/mm3 (0.02-0.50); Eosinophils Percent Auto 0.9 % (1.0-6.0); Hematocrit 41.1 % (35.0-42.0); Hemoglobin 11.6 g/dL (11.7-13.8); Immature Granulocyte Absolute 0.03 K/mm3 (0.00-0.00); Immature Granulocyte Percent A 0.4 % (0.0-0.0); Lymphocytes Absolute Auto 2.24 K/mm3 (1.10-4.50); Lymphocytes Percent Auto 33.6 % (18.0-42.0); Mean Corpuscular HGB Conc 28.2 g/dL (32.0-36.0); Mean Corpuscular Hemoglobin 23.5 pg (27.0-31.0); Mean Corpuscular Volume 83.2 fL (78.0-102.0); Mean Platelet Volume 10.8 fl (9.2-11.8); Monocytes Absolute Auto 0.42 K/mm3 (0.10-0.90); Monocytes Percent Auto 6.3 % (2.0-11.0); Neutrophils Absolute Auto 3.9 K/mm3 (1.7-7.2); Neutrophils Percent Auto 58.4 % (50.0-70.0); Red Blood Count 4.94 M/mm3 (4.20-5.40); Red Cell Distribution Width 16.1 % (11.6-14.4); White Blood Count 6.7 K/mm3 (4.8-10.8)
[2021-04-16] MEDS: SODIUM CHLORIDE 0.9% IV 1,000 ML 999 ML IV CONT (17:24)
[2021-04-16 17:25] LABS: Alanine Aminotransferase 33 U/L (14-59); Albumin Level 3.4 g/dL (3.4-5.0); Alkaline Phosphatase 168 U/L (46-116); Anion Gap 12 mmol/L (8-16); Aspartate Amino Transferase 34 U/L (15-37); Bilirubin,Total 0.5 mg/dL (0.00-1.00); Blood Urea Nitrogen 21 mg/dL (7-18); Calcium 8.7 mg/dL (8.5-10.1); Carbon Dioxide 24 mmol/L (21-32); Chloride 97 mmol/L (98-108); Estimated CRCL calculation 34 ml/min; Estimated Glomerular Filt Rate 49; Magnesium 1.8 mg/dL (1.8-2.4); Phosphorus 3.7 mg/dL (2.6-4.7); Potassium 4.8 mmol/L (3.5-5.1); Sodium 133 mmol/L (136-145); Total Protein 6.6 g/dL (6.4-8.2)
[2021-04-16 17:27] LABS: Glucose 563 mg/dL (70-99); Osmolality Calculated 305 mOsm/kg (285-295)
[2021-04-16 17:30] LABS: Acetone Small (Negative)
[2021-04-16 17:35] LABS: Immature Platelet Fraction Pct 3.9 % (1.0-7.0); Platelet Count Result 36 K/mm3 (150-420)
--- NOTE | 2021-04-16 17:38 | ED.GENADULT ---
HPI - General Adult General Chief complaint: Unspecified Stated complaint: high blood sugar Source: patient and family Mode of arrival: ambulatory Limitations: no limitations History of Present Illness HPI narrative: this is a 75-year-old female with a history of diabetes and hyperlipidemia, currently not having any symptoms no headache no blurry vision no nausea vomiting no chest pain no shortness of breath no abdominal pain no diarrhea constipation no nausea or vomiting no dysuria. The when the patient checked blood sugar at home randomly and found that she had a blood sugar reading of over 500 called her primary care and was told to come to the emergency department. The patient does not complain of any symptoms. Onset (ago): hour(s) Related Data Home Medications Medication Instructions Recorded Confirmed kvhmunup-rcd-bifnd acid 0.4 1 tablet PO DAILY 06/04/19 04/16/21 mg-lycopene 300 mcg-lutein 250 mcg tablet Allergies Allergy/AdvReac Type Severity Reaction Status Date / Time No Known Allergies Allergy Verified 08/21/20 09:04 Review of Systems Review of Systems: All systems reviewed & are unremarkable except as noted in HPI and below PMFSH Past Medical History Medical History (Updated 04/16/21 @ 17:43 by Griffin Wu MD) Acute pain of left knee GERD without esophagitis Hyperlipidemia associated with type 2 diabetes mellitus Hypothyroidism Kidney disease Rheumatoid arthritis Type 2 diabetes mellitus Vision loss Vitamin D deficiency Surgical History Surgical History H/O right nephrectomy H/O total thyroidectomy History of appendectomy History of rotator cuff surgery Hx of cholecystectomy Hx of tonsillectomy Status post total knee replacement, left Family History Family History Father Diabetes mellitus Family history of arthritis Mother , mother of Alzheimer's No problems noted. Other Cancer Social History Social History Social History: Patient designates daughter Allyson as MDM. Patient has been seeing Dr. Melendez as PCP but will see whomever is taking over the practice. Smoking status: Never smoker Alcohol intake: former Substance use: unknown Gender identity (if verbalized by the patient): Female Exam Const: General: cooperative, healthy appearing, comfortable and no acute distress HENMT: Head: normal to inspection Ears: hearing grossly normal bilaterally General nose exam: Normal external nose present Face and sinus: normal facial exam and sinuses nontender Mouth: Yes Normal oral and palatal mucosa present Eyes: General: appearance normal, both eyes and all related structures Visual Good: normal visual good by confrontation Neck: Neck: normal visual inspection, full ROM, no lymphadenopathy and no meningeal signs Chest: Chest palpation & inspection: normal inspection of the chest and normal palpation of entire chest wall Resp: Effort & Inspection: normal respiratory effort GI: Inspection: normal to inspection Auscultation: normal bowel sounds Back/Spine/Pelvis: Back: no CVA tenderness Cervical Spine: normal cervical lordosis Skin: General skin exam: normal color and no rashes or lesions noted Neuro: General: oriented to person, oriented to place, oriented to time, patient oriented x3, gait normal, tone normal and moves all extremities Psych: Appearance: grossly normal and well kempt Course Course Emergency Course: Patient labs were reviewed with patient and family and showed her blood sugars were over 500, patient received a L of normal saline and recheck of her blood glucose levels.m current blood glucose level is 400, labs reviewed with patient anion gap is 12 the patient otherwise is doing well and advised to follow-up with her primary for dosage ad
--- NOTE | 2021-04-16 18:05 | PC.NURSE ---
glucose monitor 492
[2021-04-16] MEDS: INSULIN HUMAN NPH (*BKC) 100 UNITS/ML 7 UNITS SUB-Q (18:31)
[2021-04-16 19:07] VITALS: BP 132/80; PULSE 80; RESP 18; TEMP 36.6; O2SAT 95
== END 2021-04-16 19:18 | disposition home or self-care (01) ==
PROVIDERS: Emergency Provider Emergency Medicine; PCP Nurse Practitioner Family
DX: E11.65 Type 2 diabetes mellitus with hyperglycemia (principal); K21.9 Gastro-esophageal reflux disease without esophagitis; E03.9 Hypothyroidism, unspecified; E55.9 Vitamin D deficiency, unspecified
CPT/HCPCS: 36415; 80053; 82010; 82948; 83735; 84100; 85025; 85055; 96360; 99282; 99283; J1815; J7030

== ENCOUNTER 2023-03-24 11:55 | Outpatient (NON) | payer MEDICARE, SELFPAY ==
[2023-03-24 12:08] LABS: Basophils Absolute Auto 0.03 K/mm3 (0.00-0.10); Basophils Percent Auto 0.4 % (0.0-1.0); Eosinophils Absolute Auto 0.09 K/mm3 (0.02-0.50); Eosinophils Percent Auto 1.2 % (1.0-6.0); Hematocrit 33.2 % (35.0-42.0); Hemoglobin 9.9 g/dL (11.7-13.8); Immature Granulocyte Absolute 0.03 K/mm3 (0.00-0.00); Immature Granulocyte Percent A 0.4 % (0.0-0.0); Lymphocytes Absolute Auto 2.19 K/mm3 (1.10-4.50); Lymphocytes Percent Auto 30.2 % (18.0-42.0); Mean Corpuscular HGB Conc 29.8 g/dL (32.0-36.0); Mean Corpuscular Hemoglobin 23.6 pg (27.0-31.0); Mean Platelet Volume 10.7 fl (9.2-11.8); Monocytes Absolute Auto 0.42 K/mm3 (0.10-0.90); Monocytes Percent Auto 5.8 % (2.0-11.0); Neutrophils Absolute Auto 4.5 K/mm3 (1.7-7.2); Platelet Count Result 227 K/mm3 (150-420); Red Cell Distribution Width 14.8 % (11.6-14.4); White Blood Count 7.3 K/mm3 (4.8-10.8)
[2023-03-24 13:39] LABS: Alanine Aminotransferase 21 U/L (14-59); Albumin Level 3.9 g/dL (3.4-5.0); Alkaline Phosphatase 163 U/L (46-116); Anion Gap 9 mmol/L (8-16); Aspartate Amino Transferase < 10 U/L (15-37); Bilirubin,Total 0.3 mg/dL (0.00-1.00); Blood Urea Nitrogen 39 mg/dL (7-18); Calcium 9.6 mg/dL (8.5-10.1); Carbon Dioxide 28 mmol/L (21-32); Chloride 95 mmol/L (98-108); Cholesterol 123 mg/dL (0-200); Estimated Glomerular Filt Rate 28; Free T4 Free Thyroxine 1.19 ng/dL (0.76-1.46); HDL Direct 23 mg/dL (40-60); LDL Cholesterol Calculated 50 mg/dL (<130); Magnesium 2.3 mg/dL (1.8-2.4); Potassium 5.5 mmol/L (3.5-5.1); Sodium 132 mmol/L (136-145); Thyroid Stimulating Hormone 1.76 uIU/mL (0.36-3.74); Total Protein 6.8 g/dL (6.4-8.2); Triglycerides 249 mg/dL (0-150); Vitamin B12 1368 pg/mL (193-986)
[2023-03-24 13:42] LABS: Glucose 638 mg/dL (70-99); Osmolality Calculated 313 mOsm/kg (285-295)
[2023-03-27 20:59] LABS: Vitamin D 25 Hydroxy 41 ng/mL (30-100)
== END 2023-03-24 11:56 | disposition home or self-care (01) ==
LOC: CHSLAB 11:57
PROVIDERS: Visit Provider Nurse Practitioner Family
DX: I10 Essential (primary) hypertension (principal); E55.9 Vitamin D deficiency, unspecified; Z79.899 Other long term (current) drug therapy; E11.69 Type 2 diabetes mellitus with other specified complication; E78.5 Hyperlipidemia, unspecified; E11.9 Type 2 diabetes mellitus without complications; R41.3 Other amnesia
CPT/HCPCS: 36415; 80053; 80061; 82306; 82607; 83036; 83735; 84439; 84443; 85025

== ENCOUNTER 2023-03-24 14:14 | Observation (INO) | payer MEDICARE, SELFPAY ==
[2023-03-24 14:19] VITALS: BP 145/49; PULSE 102; RESP 16; TEMP 36.8; O2SAT 94
--- NOTE | 2023-03-24 14:21 | ED.GENADULT ---
HPI - General Adult General Chief complaint: Recheck/Abnormal Lab/Rx Stated complaint: elevated blood glucose Time Seen by Provider: 03/24/23 14:15 Source: family (daughter) Mode of arrival: ambulatory Limitations: dementia History of Present Illness HPI narrative: 77 year female is brought to the Emergency Department by daughter. Patient had lab drawn out patient today and was called by PCP to come to the Emergency Department for elevated blood glucose. Patient has a history of diabetes, but is not taking any medication for diabetes now. Daughter states she used to take insulin and oral, but is currently not taking anything. Onset (ago): unknown Relieving factors: none Exacerbating factors: none Associated symptoms: denies other symptoms Treatments prior to arrival: none Related Data Home Medications Medication Instructions Recorded Confirmed egbvtqkq-dhg-uswwn acid 0.4 1 tablet PO DAILY 06/04/19 03/24/23 mg-lycopene 300 mcg-lutein 250 mcg tablet (Centrum Silver) Allergies Allergy/AdvReac Type Severity Reaction Status Date / Time No Known Allergies Allergy Verified 03/24/23 14:19 Review of Systems Review of Systems: All systems reviewed & are unremarkable except as noted in HPI and below Constitutional: Constitutional: Reports as per HPI, Reports no additional constitutional complaints, Denies chills and Denies fever(s) Eyes: Eyes: Reports as per HPI and Reports no additional eye complaints ENT: Reports system reviewed and no additional complaints, except as documented, Denies nasal congestion and Denies sore throat Cardiovascular: Cardiovascular: Reports as per HPI, Reports no additional cardiovascular complaints and Denies chest pain Respiratory: Respiratory: Reports as per HPI, Reports no additional respiratory complaints, Denies chest congestion and Denies dyspnea Gastrointestinal: Gastrointestinal: Reports as per HPI, Reports no additional gastrointestinal complaints, Denies diarrhea, Denies nausea and Denies vomiting Genitourinary: Genitourinary: Reports no additional female genitourinary complaints, Reports as per HPI, Denies nocturia and Denies dysuria Musculoskeletal: Musculoskeletal: Reports no additional musculoskeletal complaints and Reports as per HPI Integumentary/Breasts: Skin/Breast: Reports system reviewed and no additional complaints, except as docu Neurologic: Reports system reviewed and no additional complaints, except as documented Psychiatric: Psychiatric: Reports no additional psychiatric complaints Endocrine: Endocrine: Reports no additional endocrine complaints Hematologic/Lymphatic: Hematologic/Lymphatic: Reports no additional hematologic/lymphatic complaints Allergic/Immunologic: Allergic/Immunologic: Reports no additional allergic/immunologic complaints PMFSH Past Medical History Medical History (Updated 03/24/23 @ 18:10 by Javier Matamoros MD) Acute pain of left knee GERD without esophagitis Hyperlipidemia associated with type 2 diabetes mellitus Hypothyroidism Kidney disease Rheumatoid arthritis Type 2 diabetes mellitus Vision loss Vitamin D deficiency Surgical History Surgical History H/O right nephrectomy H/O total thyroidectomy History of appendectomy History of rotator cuff surgery Hx of cholecystectomy Hx of tonsillectomy Status post total knee replacement, left Family History Family History Father Diabetes mellitus Family history of arthritis Mother , mother of Alzheimer's No problems noted. Other Cancer Social History Social History Social History: Patient designates daughter Allyson as MDM. Patient has been seeing Dr. Melendez as PCP but will see whomever is taking over the practice. Smoking status: Never smoker Alcohol intake: former Substance
[2023-03-24] MEDS: SODIUM CHLORIDE 0.9% IV 500 ML 999 ML IV CONT (14:37)
[2023-03-24 14:45] LABS: Base Excess ABG 0.6 mmol/L (0-2); HCO3 ABG 24.4 mmol/L (23-29); Oxygen Saturation ABG 96.9 % (95-97); Oxyhemoglobin 95.2 % (94-100); PCO2 ABG 35.7 mmHg (35-45); PO2 ABG 91.3 mmHg (75-85); Total Hemoglobin 9.6 g/dL (12.0-18.0); pH ABG 7.45 (7.35-7.45)
[2023-03-24 14:48] LABS: Device ROOM AIR; Modified Allen's Test Pass; Site Drawn RIGHT RADIAL
[2023-03-24 15:05] LABS: Lactic Acid Reflex 1.2 mmol/L (0.4-2.0)
[2023-03-24] MEDS: INSULIN HUMAN REGULAR (*BKC) 1,000 UNITS/10 ML VIAL 10 UNITS IV PUSH ×2 (15:28→18:13)
[2023-03-24 15:30] LABS: Glucose Point of Care > 450 mg/dl (65-105)
[2023-03-24] MEDS: SODIUM CHLORIDE 0.9% IV 1,000 ML 999 ML IV CONT (15:39)
[2023-03-24 16:57] LABS: Glucose Point of Care > 450 mg/dl (65-105)
[2023-03-24 17:39] LABS: Glucose 589 mg/dL (70-99)
--- NOTE | 2023-03-24 19:11 | PC.NURSE ---
Dr Matamoros states pt will be admitted for 23 hr obs. Pt wasw accepted by hospitalist Maria Antonia Mccain. Call placed to floor for bed.
[2023-03-24 19:12] LABS: Glucose Point of Care 349 mg/dl (65-105)
--- NOTE | 2023-03-24 19:13 | PC.NURSE ---
Pt will go to Rm 206 per Kady Valdes RN. Pt given food tray to eat per request and Dr mcdermott. Pt sitting bedside, VSS.
--- NOTE | 2023-03-24 19:31 | PC.NURSE ---
Pt ate 100% of dinner tray, sitting bedside c daughtert in room. Awaiting to give report for admit to 206. VSS.
[2023-03-24 19:32] VITALS: BP 135/72; PULSE 78; RESP 18; O2SAT 99
[2023-03-24 19:47] VITALS: BP 137/79; PULSE 79; RESP 20; TEMP 36.6; O2SAT 97
[2023-03-24 20:00] VITALS: PULSE 79; RESP 20; O2SAT 97
[2023-03-24] MEDS: SODIUM CHLORIDE 0.9% IV 1,000 ML 100 ML IV CONT (20:09)
[2023-03-24 20:15] VITALS: BMI 26.4
--- NOTE | 2023-03-24 20:15 | ADMGEN ---
This patient, Megan Rueda, was admitted to 2nd Floor Room 206-1. Patient/family oriented to hospital policies and general routines including ID bracelet, bed and alarms, visiting hours, pain management, procedures, bathroom and other care routines, personal items, smoking policy, room service/diet, and visiting hours. Information on how to activate the Rapid Response Team has been discussed. Patient/Family are encouraged to report perceived risks to care and to ask questions if they do not understand what they are told or what they should do.
[2023-03-24 20:26] LABS: Anion Gap 9 mmol/L (8-16); Blood Urea Nitrogen 37 mg/dL (7-18); Calcium 9.2 mg/dL (8.5-10.1); Carbon Dioxide 28 mmol/L (21-32); Chloride 103 mmol/L (98-108); Estimated Glomerular Filt Rate 32; Magnesium 2.1 mg/dL (1.8-2.4); Osmolality Calculated 315 mOsm/kg (285-295); Phosphorus 3.8 mg/dL (2.6-4.7); Potassium 4.8 mmol/L (3.5-5.1); Sodium 140 mmol/L (136-145)
[2023-03-24 20:50] LABS: Glucose 412 mg/dL (70-99)
[2023-03-24 20:50] LABS: Glucose Point of Care 385 mg/dl (65-105)
[2023-03-24 21:26] LABS: Appearance Urine Clear (Clear); Bilirubin Urine Negative (Negative); Blood Urine Negative (Negative); Color Urine Light Yellow (Yellow); Glucose Urine UA 3+ (Negative); Ketones Urine Negative (Negative); Leukocyte Esterase Ur 1+ (Negative); Nitrate Urine Negative (Negative); Protein Urine Trace (Negative); Specific Grav Ur <= 1.005 (1.010-1.020); Urobilinogen Urine 0.2 mg/dL (0.2-1.0); pH Urine 6.5 (5.0-8.0)
[2023-03-24 21:31] LABS: Add Urine Microscopic? YES; Bacteria Urine 2+ /hpf; RBC Urine 0-2 /hpf (0-2); Squamous Epithelial Cell Urine Few /hpf (Few)
[2023-03-24] MEDS: SODIUM CHLORIDE 0.45% 1,000 ML 100 ML IV CONT (21:45)
[2023-03-24] MEDS: HEPARIN SODIUM 5,000 UNITS/ML VIAL 5000 UNITS SUB-Q (21:49)
[2023-03-24] MEDS: CALCIUM CARBONATE (TUMS) 500 MG (200 MG ELEMENTAL) PO (22:17)
[2023-03-24] MEDS: diphenhydrAMINE HCl CAP 25 MG CAPSULE 50 MG PO (22:18)
[2023-03-24] MEDS: ACETAMINOPHEN 325 MG TABLET PO (22:18)
[2023-03-25] VITALS: BP 146/67; PULSE 89; RESP 16; TEMP 36.6; O2SAT 94
[2023-03-25 00:28] LABS: Anion Gap 5 mmol/L (8-16); Blood Urea Nitrogen 38 mg/dL (7-18); Calcium 8.8 mg/dL (8.5-10.1); Carbon Dioxide 29 mmol/L (21-32); Chloride 103 mmol/L (98-108); Estimated CRCL calculation 23 ml/min; Estimated Glomerular Filt Rate 33; Osmolality Calculated 310 mOsm/kg (285-295); Potassium 5.2 mmol/L (3.5-5.1); Sodium 137 mmol/L (136-145)
[2023-03-25 00:30] LABS: Glucose 405 mg/dL (70-99)
--- NOTE | 2023-03-25 00:32 | PC.NURSE ---
Maria Antonia Mccain, SHINGLE CARRIER/Hospitalist, notified that lab reported blood sugar of 405.
[2023-03-25 01:00] LABS: Glucose Point of Care 333 mg/dl (65-105)
[2023-03-25 04:47] LABS: Glucose Point of Care 299 mg/dl (65-105)
[2023-03-25 05:13] LABS: Anion Gap 9 mmol/L (8-16); Blood Urea Nitrogen 35 mg/dL (7-18); Calcium 8.8 mg/dL (8.5-10.1); Carbon Dioxide 25 mmol/L (21-32); Chloride 103 mmol/L (98-108); Estimated CRCL calculation 27 ml/min; Estimated Glomerular Filt Rate 39; Glucose 304 mg/dL (70-99); Osmolality Calculated 303 mOsm/kg (285-295); Potassium 4.8 mmol/L (3.5-5.1); Sodium 137 mmol/L (136-145)
[2023-03-25 07:45] VITALS: BP 119/74; PULSE 80; RESP 16; TEMP 36.2; O2SAT 96
[2023-03-25 07:56] LABS: Glucose Point of Care 247 mg/dl (65-105)
[2023-03-25] MEDS: PANTOPRAZOLE 40 MG TABLET PO (09:24)
[2023-03-25] MEDS: HEPARIN SODIUM 5,000 UNITS/ML VIAL 5000 UNITS SUB-Q ×2 (09:25→21:05)
[2023-03-25] MEDS: INSULIN HUMAN LISPRO (*BKC) 1,000 UNITS/10 ML VIAL SUB-Q ×5 (09:25→20:03)
[2023-03-25 10:45] LABS: Hemoglobin 8.5 g/dL (11.7-13.8); Mean Corpuscular HGB Conc 30.4 g/dL (32.0-36.0); Mean Corpuscular Hemoglobin 24.1 pg (27.0-31.0); Mean Corpuscular Volume 79.5 fL (78.0-102.0); Mean Platelet Volume 10.4 fl (9.2-11.8); Platelet Count Result 201 K/mm3 (150-420); Red Blood Count 3.52 M/mm3 (4.20-5.40); Red Cell Distribution Width 14.9 % (11.6-14.4); White Blood Count 5.2 K/mm3 (4.8-10.8)
[2023-03-25 10:48] LABS: Anion Gap 6 mmol/L (8-16); Blood Urea Nitrogen 31 mg/dL (7-18); Calcium 8.6 mg/dL (8.5-10.1); Carbon Dioxide 28 mmol/L (21-32); Chloride 102 mmol/L (98-108); Estimated CRCL calculation 24 ml/min; Estimated Glomerular Filt Rate 35; Osmolality Calculated 309 mOsm/kg (285-295); Potassium 5.1 mmol/L (3.5-5.1); Sodium 136 mmol/L (136-145)
[2023-03-25 10:49] LABS: Glucose 469 mg/dL (70-99)
[2023-03-25 10:56] LABS: Hemoglobin A1C 12.7 % (<5.7)
--- NOTE | 2023-03-25 11:18 | PM.IMHP ---
H&P: HPI History of Present Illness Date/Time: 03/25/23 11:18 Chief Complaint: hyperglyceima , noncompliance tachycardia Narrative: This is a 77 year old female that has been admitted with hyperglceima and tachycardia. Patient is confused and has not been taking her insulin more than likely due to some dementia. Patient lives at home with her family in which her normal home health care case manager daughter is out of town and informs me that she did not know her mother was on insulin. Mrs. Rueda informs me she does not take any insulin only pills. Patient has a PMH of DM, HTN, Dementia, UTI, Kidney disease, vision loss, hypothyroidism. Mrs Rueda is pleasant but can get irritated when you ask her things she does not know. Patient is anxiously wanting to go home but continues to comply with what is asked of her and is very easily redirected. Patient will recieve IV fluids we will treat her diabetes as well as her uTI and continue to monitor her. Patient wanting to go home but blood sugar remains to high and she is in need of insulin at this time I am not able to send her home and we will plan for possible discharge tomorrow. Patient hs 1 kidney per her daughter. Review of Systems Review of Systems: hyperglciema All systems reviewed & are unremarkable except as noted in HPI and below PMFSH Past Medical History Medical History (Updated 04/03/23 @ 12:06 by Mercedes Ryder NP) Acute pain of left knee GERD without esophagitis Hyperlipidemia associated with type 2 diabetes mellitus Hypothyroidism Kidney disease Rheumatoid arthritis Type 2 diabetes mellitus Vision loss Vitamin D deficiency Surgical History Surgical History H/O right nephrectomy H/O total thyroidectomy History of appendectomy History of rotator cuff surgery Hx of cholecystectomy Hx of tonsillectomy Status post total knee replacement, left Family History Family History (Updated 04/03/23 @ 13:52 by Lina Jeffrey RN) Father No problems noted. Mother , mother of Alzheimer's Diabetes mellitus Family history of arthritis Other Cancer Social History Social History Social History: Patient designates daughter Allyson as MDM. Patient has been seeing Dr. Melendez as PCP but will see whomever is taking over the practice. Smoking status: Never smoker Second hand tobacco smoke exposure: No Alcohol intake: never Substance use: never Substance use type: does not use Lack of Transportation: YES Lack of Food: Never True Current Housing: I Do Not Have Housing Concerned About Future Housing: No Difficulty Paying Gas/Electric Bills: No Difficulty Paying for Meds: No Currently Unemployed: No Education: High School Diploma/GED Difficulty w/ Childcare or Family Care: No Occupation/Education: retired Gender identity (if verbalized by the patient): Female Spiritual care concerns: No Meds Home Medications and Allergies Home Medications Medication Instructions Recorded Confirmed Type mcorzsni-pwm-lqfhl acid 0.4 1 tablet PO DAILY 06/04/19 04/03/23 History mg-lycopene 300 mcg-lutein 250 mcg tablet (Centrum Silver) blood-glucose meter (Easy Trak #1 ea 04/19/21 04/03/23 Rx Blood Glucose Meter) memantine 5 mg tablet 5 mg PO DAILY 03/24/23 04/03/23 History insulin lispro 200 unit/mL (3 mL) 5 unit (0.025 mL) subcut TID #6 mL 03/26/23 04/03/23 Rx subcutaneous pen (Humalog KwikPen U-200 Insulin) blood sugar diagnostic (PeekTouch #100 strips 03/27/23 04/03/23 Rx Verio test strips) insulin syringe-needle U-100 1 mL #100 ea 03/27/23 04/03/23 Rx 31 gauge x 5/16 (BD Insulin Syringe Ultra-Fine) lancets 33 gauge (OneTouch Delica #120 ea 03/27/23 04/03/23 Rx Plus Lancet) ferrous sulfate 325 mg (65 mg 325 mg PO BID #60 tabs 03/28/23 04/03/23 Rx iron) tablet (Iron (ferrous
[2023-03-25] MEDS: MEMANTINE 5 MG TABLET PO (11:32)
[2023-03-25] MEDS: INSULIN HUMAN LISPRO (*BKC) 1,000 UNITS/10 ML VIAL 10 UNITS SUB-Q ×2 (11:32→14:00)
[2023-03-25] MEDS: SODIUM CHLORIDE 0.9% IV 1,000 ML 100 ML IV CONT ×2 (11:32→21:03)
[2023-03-25] MEDS: THERAPEUTIC MULTIVITAMINS/MINERALS TAB (*BKC) 1 TABLET PO (11:32)
[2023-03-25] MEDS: lisinopriL 10 MG TABLET BY MOUTH (11:33)
[2023-03-25 12:08] LABS: Glucose Point of Care 391 mg/dl (65-105)
[2023-03-25 14:02] LABS: Glucose Point of Care 414 mg/dl (65-105)
[2023-03-25 16:00] VITALS: BP 156/70; PULSE 87; RESP 16; TEMP 36.4; O2SAT 96
[2023-03-25 16:09] LABS: Glucose Point of Care 320 mg/dl (65-105)
--- NOTE | 2023-03-25 18:08 | PC.NURSE ---
family is in to visit pt
[2023-03-25 18:29] LABS: Glucose Point of Care 319 mg/dl (65-105)
[2023-03-25 20:07] LABS: Glucose Point of Care 258 mg/dl (65-105)
[2023-03-25] MEDS: traZODone HCL 50 MG TABLET 100 MG BY MOUTH (21:04)
[2023-03-25 22:14] LABS: Glucose Point of Care 176 mg/dl (65-105)
[2023-03-26] VITALS: BP 153/63; PULSE 88; RESP 16; TEMP 36.5; O2SAT 98
[2023-03-26 00:09] LABS: Glucose Point of Care 157 mg/dl (65-105)
--- NOTE | 2023-03-26 00:30 | PC.NURSE ---
Patient's blood sugar was checked every 2 hours, with instructions to return patient to AC/HS status after 2 blood sugar levels below 250. Blood sugar at 2000 was 258; at 2200 was 176; and at 0000 was 157. Therefore, blood glucose was returned to AC/HS and the every two hour readings were discontinued.
[2023-03-26 07:20] LABS: Glucose Point of Care 279 mg/dl (65-105)
[2023-03-26 08:00] VITALS: BP 144/63; PULSE 86; RESP 16; TEMP 36.4; O2SAT 97
[2023-03-26] MEDS: HEPARIN SODIUM 5,000 UNITS/ML VIAL 5000 UNITS SUB-Q (09:08)
[2023-03-26] MEDS: MEMANTINE 5 MG TABLET PO (09:11)
[2023-03-26] MEDS: PANTOPRAZOLE 40 MG TABLET PO (09:11)
[2023-03-26] MEDS: THERAPEUTIC MULTIVITAMINS/MINERALS TAB (*BKC) 1 TABLET PO (09:11)
[2023-03-26] MEDS: INSULIN HUMAN LISPRO (*BKC) 1,000 UNITS/10 ML VIAL SUB-Q ×2 (09:11→11:20)
[2023-03-26] MEDS: lisinopriL 10 MG TABLET BY MOUTH (09:11)
[2023-03-26 10:45] LABS: Glucose Point of Care > 450 mg/dl (65-105)
[2023-03-26 10:46] LABS: Glucose Point of Care > 450 mg/dl (65-105)
[2023-03-26] MEDS: INSULIN HUMAN LISPRO (*BKC) 1,000 UNITS/10 ML VIAL 10 UNITS SUB-Q (11:20)
[2023-03-26 13:05] LABS: Glucose Point of Care 437 mg/dl (65-105)
--- NOTE | 2023-03-26 13:14 | PC.NURSE ---
Patient discharged to home. Patient left facility to private vehicle via wheelchair. Transferred self to vehicle. Discharge instructions given gone over and given to family. Left facility at 12:55pm.
--- NOTE | 2023-03-28 08:35 | PC.NURSE ---
Spoke with daughter, patient doing well, saw MD yesterday for follow up, states nurse was great with the discharge instructions and they are figuring it out, no concerns during stay
--- NOTE | 2023-04-04 09:27 | PM.DS ---
DS: Admitting Diagnosis Discharge Date 03/26/23 Admitting Diagnosis UTI/Cystitis, DKA, Dementia DS: Summary Hospital Course Reason for hospitalization: DKA,cystitis , dementia Hospital Course: This is a 77 years old lady who is pleasantly has moment of confusion. Patient while here has been treated with Insulin, IVF and IV antibioics. Patient is anxious for discharge and is truly unaware of what she is taking at home. Patient had some Acute on chronic kidney injury and has not been taking her medication according to family she was on insulin and oral medication but did not take any in the last year almost. Patient is not able to remember what medication she is supposed to take at home but her daughter has informed me personally that she is able to give her the medication as directed. Patient is able to ambulate and eating and drinking without difficulties she has remained afebrile and her blood sugars are a lot better. Mrs. Rueda hgba1c is 12.7 and after reviewing previous about 6 month ago her level around 7. Mrs. Rueda will need close follow up with her pcp. we will discharge home at this time Time Spent with Patient Time attestation: Total time spent providing and/or coordinating discharge services: Exam Narrative: GENERAL:Well-appearing, well-nourished, and in no acute distress. HEAD:Normocephalic, atraumatic. EYES: PERRLA and EOMI. ENT: Nares clear, no rhinorrhea or epistaxis. Mucous membranes moist. NECK: Supple. CHEST: Clear to diminishedleft lower lobe auscultation. No respiratory distress. HEART: Regular rate and rhythm. . Normal peripheral pulses. ABDOMEN: Soft, nontender, nondistended, normal active bowel sounds. EXTREMITIES: Normal range of motion. No edema. SKIN: Warm, dry, no rash. NEURO: No focal deficits. Alert and oriented x2 Discharge Plan Discharge Attending physician on discharge: Ham Stapleton Consulting providers: Deny Trujillo Discharging Clinician: Deny Trujillo Anticipated Discharge Date/Time: 03/26/23 08:25 Patient Disposition: Home, Self-Care Activity: may shower, unlimited and no driving Diet: heart healthy and diabetic Wound Care Instructions: follow printed instructions Discharge Instructions: You will need someone to assist with you being administer Insulin I have call and discussed with your PCP close follow up is needed Patient Instructions: Antibiotic Form, Sulfamethoxazole/Trimethoprim (By mouth), Insulin Glargine (By injection), Dementia (ED), Diabetic Ketoacidosis (DC), Type 2 Diabetes in Adults: New Diagnosis (DC), Diabetic Neuropathy (GEN), Managing Diabetes During Sick Days (DC), Diabetic Foot Ulcers (DC), Diabetic Hyperglycemia (DC), Diabetic Kidney Disease (DC), Diabetes and Your Skin (DC), Diabetes and Your Mouth (ED), Hypertension and Diabetes (DC), Diabetes and Nutrition (DC), Diabetes and Exercise (DC) Patient Language: Azeri Stand Alone Forms: General Discharge Information Follow-up/Referrals: Mercedes Ryder NP [Primary Care Provider] - 03/27/23 10:15 am (follow up appointment ) Discharge Medications: New Humalog KwikPen Insulin 200 unit/mL (3 mL) insulin pen 5 unit subcut TID Qty: 6 0RF Rx Instructions: Check blood sugar before each meal anything above 200 give 5 units before meals Continued memantine 5 mg tablet 5 mg PO DAILY Centrum Silver 0.4-300-250 mg-mcg-mcg tablet 1 tablet PO DAILY No Action ferrous sulfate [Iron (ferrous sulfate)] 325 mg (65 mg iron) tablet 325 mg PO BID Qty: 60 0RF insulin degludec [Tresiba U-100 Insulin] 100 unit/mL Solution 10 unit SUBCUT DAILY trazodone 100 mg tablet 100 mg PO HS Rx Instructions: TAKE 1 TABLET BY MOUTH EVERYDAY AT BEDTIME lisinopril 10 mg tablet 10 mg PO DAILY Rx Instructions: TAKE 1 TABLET BY MOUTH EVERY DAY (DME) OneTouch Verio test strips Strip See Rx Instructions .ROUTE .COMPLEX Qty: 100 3
== END 2023-03-26 12:55 | disposition home or self-care (01) ==
LOC: CHSED 18:10 → CHS2ND 19:15
PROVIDERS: Nurse Practitioner Adult Health; Nurse Practitioner Family; Admitting Provider Internal Medicine; Emergency Provider Emergency Medicine; PCP Nurse Practitioner Family; Visit Provider Internal Medicine
DX: E11.65 Type 2 diabetes mellitus with hyperglycemia (principal); I10 Essential (primary) hypertension; E78.5 Hyperlipidemia, unspecified; E55.9 Vitamin D deficiency, unspecified; E03.9 Hypothyroidism, unspecified; K21.9 Gastro-esophageal reflux disease without esophagitis; M06.9 Rheumatoid arthritis, unspecified; R41.3 Other amnesia; F03.90 Unspecified dementia, unspecified severity, without behavioral disturbance, psychotic disturbance, mood disturbance, and anxiety; Z96.652 Presence of left artificial knee joint; Z90.5 Acquired absence of kidney
CPT/HCPCS: 36415; 36600; 80048; 81001; 82805; 82947; 82948; 83036; 83605; 83735; 84100; 85027; 87086; 96361; 96365; 96374; 96376; 99285; A9270; G0378; J0696; J1644; J1815; J7030; J7040

== ENCOUNTER 2023-03-28 18:34 | Emergency (ER) | payer MEDICARE, SELFPAY ==
[2023-03-28] VITALS (8 sets, daily range): BP systolic 109–127; BP diastolic 48–86; PULSE 70–80; RESP 16–20; TEMP 36.3; O2SAT 94–100
[2023-03-28 18:40] LABS: Glucose Point of Care 404 mg/dl (65-105)
--- NOTE | 2023-03-28 18:48 | ECG_ITS ---
Measurements Intervals [place] Rate: 75 P: 38 IN: 143 QRS: 55 QRSD: 78 T: 63 QT: 357 QTc: 399 Interpretive Statements SINUS RHYTHM BASELINE ARTIFACT- AVL, V6 NORMAL ECG COMPARED TO ECG 08/02/2019 11:28:18 NO SIGNIFICANT CHANGES Electronically Signed On 03-28-2023 20:18:56 CDT by Chidi Lewis D.O.
--- NOTE | 2023-03-28 19:07 | PC.NURSE ---
report to jacquelyn vasquez . all questions answered
--- NOTE | 2023-03-28 19:13 | ED.GENADULT ---
HPI - General Adult General Chief complaint: Urogenital-Female Stated complaint: high blood sugar Time Seen by Provider: 03/28/23 18:41 Source: patient and family Mode of arrival: ambulatory Limitations: dementia History of Present Illness HPI narrative: patient is a 77-year-old female with 2 days out of the hospital here at this facility for urinary tract infection and hyperglycemia/ diabetes mellitus type 2. Patient is having high readings at home and came to the ER for further evaluation. Blood sugar in the emergency room is 404. She has no current complaints however did have a headache that is resolved at this time. Patient is currently on Bactrim for the UTI. Onset (ago): day(s) (2) Relieving factors: none Exacerbating factors: none Associated symptoms: denies other symptoms Treatments prior to arrival: none and other ( Patient is on many new diabetic medications; urine culture upon review is pending at this time in the chart) Related Data Home Medications Medication Instructions Recorded Confirmed qjczxjem-hit-ahzaw acid 0.4 1 tablet PO DAILY 06/04/19 03/28/23 mg-lycopene 300 mcg-lutein 250 mcg tablet (Centrum Silver) memantine 5 mg tablet 5 mg PO DAILY 03/24/23 03/28/23 Allergies Allergy/AdvReac Type Severity Reaction Status Date / Time No Known Allergies Allergy Verified 03/27/23 08:28 Review of Systems Review of Systems: All systems reviewed & are unremarkable except as noted in HPI and below Constitutional: Constitutional: Reports no additional constitutional complaints Eyes: Eyes: Reports no additional eye complaints ENT: Reports system reviewed and no additional complaints, except as documented Cardiovascular: Cardiovascular: Reports no additional cardiovascular complaints Respiratory: Respiratory: Reports no additional respiratory complaints Gastrointestinal: Gastrointestinal: Reports no additional gastrointestinal complaints Genitourinary: Genitourinary: Reports no additional female genitourinary complaints Musculoskeletal: Musculoskeletal: Reports no additional musculoskeletal complaints Integumentary/Breasts: Skin/Breast: Reports system reviewed and no additional complaints, except as docu Neurologic: Reports system reviewed and no additional complaints, except as documented Psychiatric: Psychiatric: Reports no additional psychiatric complaints Endocrine: Endocrine: Reports no additional endocrine complaints Hematologic/Lymphatic: Hematologic/Lymphatic: Reports no additional hematologic/lymphatic complaints Allergic/Immunologic: Allergic/Immunologic: Reports no additional allergic/immunologic complaints PMFSH Past Medical History Medical History (Updated 03/28/23 @ 23:36 by Hernandez Small MD) Acute pain of left knee GERD without esophagitis Hyperlipidemia associated with type 2 diabetes mellitus Hypothyroidism Kidney disease Rheumatoid arthritis Type 2 diabetes mellitus Vision loss Vitamin D deficiency Surgical History Surgical History H/O right nephrectomy H/O total thyroidectomy History of appendectomy History of rotator cuff surgery Hx of cholecystectomy Hx of tonsillectomy Status post total knee replacement, left Family History Family History Father Diabetes mellitus Family history of arthritis Mother , mother of Alzheimer's No problems noted. Other Cancer Social History Social History Social History: Patient designates daughter Allyson as MDM. Patient has been seeing Dr. Melendez as PCP but will see whomever is taking over the practice. Smoking status: Never smoker Second hand tobacco smoke exposure: No Alcohol intake: never Substance use: never Substance use type: does not use Lack of Transportation: No Lack of Food: Never True Current Housing
[2023-03-28 19:23] LABS: Basophils Absolute Auto 0.02 K/mm3 (0.00-0.10); Basophils Percent Auto 0.4 % (0.0-1.0); Eosinophils Absolute Auto 0.12 K/mm3 (0.02-0.50); Eosinophils Percent Auto 2.1 % (1.0-6.0); Hematocrit 28.4 % (35.0-42.0); Hemoglobin 8.4 g/dL (11.7-13.8); Immature Granulocyte Absolute 0.05 K/mm3 (0.00-0.00); Immature Granulocyte Percent A 0.9 % (0.0-0.0); Lymphocytes Absolute Auto 1.91 K/mm3 (1.10-4.50); Lymphocytes Percent Auto 33.8 % (18.0-42.0); Mean Corpuscular HGB Conc 29.6 g/dL (32.0-36.0); Mean Corpuscular Hemoglobin 23.7 pg (27.0-31.0); Mean Platelet Volume 10.3 fl (9.2-11.8); Monocytes Absolute Auto 0.44 K/mm3 (0.10-0.90); Monocytes Percent Auto 7.8 % (2.0-11.0); Neutrophils Absolute Auto 3.1 K/mm3 (1.7-7.2); Platelet Count Result 224 K/mm3 (150-420); Red Blood Count 3.55 M/mm3 (4.20-5.40); Red Cell Distribution Width 15.2 % (11.6-14.4); White Blood Count 5.7 K/mm3 (4.8-10.8)
[2023-03-28 19:32] LABS: Appearance Urine Clear (Clear); Bilirubin Urine Negative (Negative); Blood Urine Negative (Negative); Color Urine Light Yellow (Yellow); Glucose Urine UA 3+ (Negative); Ketones Urine Negative (Negative); Leukocyte Esterase Ur Negative LEU/UL (Negative); Nitrate Urine Negative (Negative); Protein Urine Negative (Negative); Specific Grav Ur <= 1.005 (1.010-1.020); Urobilinogen Urine 0.2 mg/dL (0.2-1.0)
[2023-03-28 19:34] LABS: Alanine Aminotransferase 26 U/L (14-59); Albumin Level 3.1 g/dL (3.4-5.0); Alkaline Phosphatase 130 U/L (46-116); Anion Gap 7 mmol/L (8-16); Aspartate Amino Transferase 27 U/L (15-37); Bilirubin,Total 0.1 mg/dL (0.00-1.00); Blood Urea Nitrogen 42 mg/dL (7-18); Calcium 8.7 mg/dL (8.5-10.1); Carbon Dioxide 24 mmol/L (21-32); Chloride 102 mmol/L (98-108); Estimated CRCL calculation 21 ml/min; Estimated Glomerular Filt Rate 29; Glucose 381 mg/dL (70-99); Osmolality Calculated 302 mOsm/kg (285-295); Potassium 5.4 mmol/L (3.5-5.1); Sodium 133 mmol/L (136-145); Total Protein 6.2 g/dL (6.4-8.2)
[2023-03-28 19:36] LABS: Troponin I 5.2 ng/L (0.00-60.4)
[2023-03-28 19:39] LABS: Add Urine Microscopic? YES; RBC Urine 0-2 /hpf (0-2); Squamous Epithelial Cell Urine Rare /hpf (Few); WBC Urine 0-3 /hpf (0-3)
[2023-03-28 19:40] LABS: Bacteria Urine Trace /hpf
[2023-03-28] MEDS: SODIUM CHLORIDE 0.9% IV 1,000 ML 999 ML IV CONT (20:07)
[2023-03-28 21:13] LABS: Glucose Point of Care 281 mg/dl (65-105)
[2023-03-28 21:16] LABS: Occult Blood Negative (Negative)
[2023-03-28 22:08] LABS: Glucose Point of Care 278 mg/dl (65-105)
[2023-03-28 22:27] LABS: Basophils Absolute Auto 0.01 K/mm3 (0.00-0.10); Basophils Percent Auto 0.2 % (0.0-1.0); Eosinophils Absolute Auto 0.09 K/mm3 (0.02-0.50); Eosinophils Percent Auto 1.7 % (1.0-6.0); Hematocrit 27.2 % (35.0-42.0); Hemoglobin 8.1 g/dL (11.7-13.8); Immature Granulocyte Absolute 0.05 K/mm3 (0.00-0.00); Immature Granulocyte Percent A 0.9 % (0.0-0.0); Lymphocytes Absolute Auto 1.91 K/mm3 (1.10-4.50); Lymphocytes Percent Auto 35.3 % (18.0-42.0); Mean Corpuscular HGB Conc 29.8 g/dL (32.0-36.0); Mean Corpuscular Hemoglobin 23.8 pg (27.0-31.0); Mean Corpuscular Volume 79.8 fL (78.0-102.0); Mean Platelet Volume 9.5 fl (9.2-11.8); Monocytes Absolute Auto 0.46 K/mm3 (0.10-0.90); Monocytes Percent Auto 8.5 % (2.0-11.0); Neutrophils Absolute Auto 2.9 K/mm3 (1.7-7.2); Neutrophils Percent Auto 53.4 % (50.0-70.0); Platelet Count Result 203 K/mm3 (150-420); Red Blood Count 3.41 M/mm3 (4.20-5.40); Red Cell Distribution Width 15.5 % (11.6-14.4); White Blood Count 5.4 K/mm3 (4.8-10.8)
[2023-03-28 22:37] LABS: Anion Gap 8 mmol/L (8-16); Blood Urea Nitrogen 34 mg/dL (7-18); Calcium 8.4 mg/dL (8.5-10.1); Carbon Dioxide 25 mmol/L (21-32); Chloride 105 mmol/L (98-108); Estimated CRCL calculation 23 ml/min; Estimated Glomerular Filt Rate 33; Glucose 217 mg/dL (70-99); Osmolality Calculated 300 mOsm/kg (285-295); Potassium 4.6 mmol/L (3.5-5.1); Sodium 138 mmol/L (136-145)
== END 2023-03-28 23:50 | disposition home or self-care (01) ==
PROVIDERS: Emergency Provider Emergency Medicine; PCP Nurse Practitioner Family
DX: E11.65 Type 2 diabetes mellitus with hyperglycemia (principal); E86.0 Dehydration; N17.9 Acute kidney failure, unspecified; D64.9 Anemia, unspecified; E78.5 Hyperlipidemia, unspecified; E03.9 Hypothyroidism, unspecified
CPT/HCPCS: 36415; 80048; 80053; 81001; 82272; 82948; 84484; 85025; 93005; 96360; 96361; 99284; J7030

== ENCOUNTER 2023-04-03 09:33 | Observation (INO) | payer MEDICARE, SELFPAY ==
[2023-04-03] VITALS (34 sets, daily range): BP systolic 102–153; BP diastolic 43–101; PULSE 78–105; RESP 16–22; TEMP 36.1–36.7; O2SAT 94–98; BMI 26.9
--- NOTE | ~2023-04-03 | XR_ITS ---
EXAMINATION: XR chest 1V portable DATE: 04/03/2023 11:28 INDICATION: Weakness. Hypoglycemia. TECHNIQUE: frontal view of the chest was obtained. COMPARISON: Chest radiograph dated 08/02/2019 and 02/09/2017 FINDINGS: Chronic mild elevation the left hemidiaphragm. No focal airspace opacities, pulmonary edema, pleural effusion or pneumothorax. The cardiomediastinal silhouette is normal. Old proximal left humeral fract ure with plate and screw fixation. IMPRESSION: 1. Chronic mild elevation of left hemidiaphragm. No acute cardiopulmonary disease. Reviewed, dictated and finalized at location A. IMPRESSION: 1. Chronic mild elevation of left hemidiaphragm. No acute cardiopulmonary disea se.
--- NOTE | 2023-04-03 09:51 | ECG_ITS ---
Measurements Intervals Logan Rate: 89 P: 57 MD: 152 QRS: 57 QRSD: 79 T: 82 QT: 333 QTc: 407 Interpretive Statements SINUS RHYTHM BORDERLINE T WAVE ABNORMALITY- HIGH LATERAL LEADS BASELINE ARTIFACT- I, III, AVL BORDERLINE ECG COMPARED TO ECG 03/28/2023 19:09:42 NO SIGNIFICANT CHANGES Electronically Signed On 04-03-2023 11:57:18 CDT by Chidi Lewis D.O.
[2023-04-03 10:02] LABS: Glucose Point of Care 352 mg/dl (65-105)
[2023-04-03 10:09] LABS: Mean Corpuscular HGB Conc 28.6 g/dL (32.0-36.0); Mean Corpuscular Hemoglobin 22.9 pg (27.0-31.0); Mean Corpuscular Volume 80.2 fL (78.0-102.0); Mean Platelet Volume 9.8 fl (9.2-11.8); Platelet Count Result 217 K/mm3 (150-420); Red Blood Count 3.49 M/mm3 (4.20-5.40); Red Cell Distribution Width 15.7 % (11.6-14.4); White Blood Count 5.8 K/mm3 (4.8-10.8)
[2023-04-03 10:25] LABS: Band Neutrophils Percent 0 % (0-6); Eosinophils Absolute Manual 0.05 K/mm3 (0.02-0.5); Eosinophils Percent Manual 1 % (1-6); Lymphocytes Absolute Manual 2.32 K/mm3 (1.1-4.5); Lymphocytes Percent Manual 40 % (18-44); Monocytes Absolute Manual 0.58 K/mm3 (0.1-0.90); Monocytes Percent Manual 10 % (3-9); Neutrophils Absolute Manual 2.84 K/mm3 (1.7-7.2); Neutrophils Percent Manual 49 % (46-73); Platelet Estimate Adequate (Adequate); Total Cells Counted 100
[2023-04-03 10:31] LABS: Carbon Dioxide 23 mmol/L (21-32); Chloride 103 mmol/L (98-108); Potassium 5.2 mmol/L (3.5-5.1); Sodium 137 mmol/L (136-145)
[2023-04-03 10:32] LABS: Alanine Aminotransferase 22 U/L (14-59); Albumin Level 2.8 g/dL (3.4-5.0); Alkaline Phosphatase 105 U/L (46-116); Anion Gap 11 mmol/L (8-16); Aspartate Amino Transferase 15 U/L (15-37); Bilirubin,Total 0.3 mg/dL (0.00-1.00); Blood Urea Nitrogen 51 mg/dL (7-18); Calcium 9.2 mg/dL (8.5-10.1); Estimated CRCL calculation 19 ml/min; Estimated Glomerular Filt Rate 25; Glucose 368 mg/dL (70-99); Lactic Acid Reflex 0.7 mmol/L (0.4-2.0); Osmolality Calculated 312 mOsm/kg (285-295); Total Protein 6.3 g/dL (6.4-8.2); Troponin I 4.2 ng/L (0.00-60.4)
[2023-04-03] MEDS: SODIUM CHLORIDE 0.9% IV 500 ML 999 ML IV CONT ×2 (10:35→11:17)
[2023-04-03 10:51] LABS: Influenza A QL RT-PCR Negative (Negative); Influenza B QL RT-PCR Negative (Negative); RSV RNA, RT-PCR Negative (Negative); SARS-CoV-2 RNA PCR Negative (Negative)
[2023-04-03 11:04] LABS: NT Pro B Type Natriuretic Pept 484 pg/mL (0-450)
[2023-04-03 11:20] LABS: Glucose Point of Care 328 mg/dl (65-105)
[2023-04-03 11:27] LABS: Appearance Urine Clear (Clear); Bilirubin Urine Negative (Negative); Blood Urine Negative (Negative); Color Urine Light Yellow (Yellow); Glucose Urine UA 3+ (Negative); Ketones Urine Trace (Negative); Leukocyte Esterase Ur Negative LEU/UL (Negative); Nitrate Urine Negative (Negative); Protein Urine Negative (Negative); Urobilinogen Urine 0.2 mg/dL (0.2-1.0)
[2023-04-03 11:32] LABS: Add Urine Microscopic? YES; Bacteria Urine Trace /hpf; RBC Urine None seen /hpf (0-2); Squamous Epithelial Cell Urine Few /hpf (Few); WBC Urine None seen /hpf (0-3)
--- NOTE | 2023-04-03 11:46 | ED.DIZZY ---
HPI - Dizziness General Chief Complaint: Dizziness Stated Complaint: weakness Time Seen by Provider: 04/03/23 09:37 Source: patient and family Mode of arrival: wheelchair Limitations: no limitations History of Present Illness HPI Narrative: this is a 77-year-old female with history of diabetes, dimension hypertension presents from her primary care office with some hypotensive episode a blood pressure about 106 systolic and having symptoms of weakness and lightheadedness. Patient denies any fever chills, no chest pain or shortness of breath no abdominal pain no dysuria no flank pain. The patient was seen in the emergency department approximately 1 week ago and was started on iron, family is at the bedside and states that she has been feeling weak and lightheaded, the patient does have a history of dementia. There is currently no nausea vomiting, no fever chills. MD elicited complaint: lightheadedness Onset (ago): day(s) Timing: gradual onset Severity: moderate Related Data Home Medications Medication Instructions Recorded Confirmed uihdrinc-awz-ilabe acid 0.4 1 tablet PO DAILY 06/04/19 04/03/23 mg-lycopene 300 mcg-lutein 250 mcg tablet (Centrum Silver) memantine 5 mg tablet 5 mg PO DAILY 03/24/23 04/03/23 insulin degludec 100 unit/mL 10 unit subcut DAILY 04/03/23 04/03/23 subcutaneous solution (Tresiba U-100 Insulin) lisinopril 10 mg tablet 10 mg PO DAILY 04/03/23 04/03/23 trazodone 100 mg tablet 100 mg PO HS 04/03/23 04/03/23 Allergies Allergy/AdvReac Type Severity Reaction Status Date / Time No Known Allergies Allergy Verified 04/03/23 09:29 Review of Systems Review of Systems: All systems reviewed & are unremarkable except as noted in HPI and below PMFSH Past Medical History Medical History (Updated 04/03/23 @ 11:54 by Griffin Wu MD) Acute pain of left knee GERD without esophagitis Hyperlipidemia associated with type 2 diabetes mellitus Hypothyroidism Kidney disease Rheumatoid arthritis Type 2 diabetes mellitus Vision loss Vitamin D deficiency Surgical History Surgical History H/O right nephrectomy H/O total thyroidectomy History of appendectomy History of rotator cuff surgery Hx of cholecystectomy Hx of tonsillectomy Status post total knee replacement, left Family History Family History Father Diabetes mellitus Family history of arthritis Mother , mother of Alzheimer's No problems noted. Other Cancer Social History Social History Social History: Patient designates daughter Allyson as MDM. Patient has been seeing Dr. Melendez as PCP but will see whomever is taking over the practice. Smoking status: Never smoker Second hand tobacco smoke exposure: No Alcohol intake: never Substance use: never Substance use type: does not use Lack of Transportation: No Lack of Food: Never True Current Housing: I Have Housing Concerned About Future Housing: No Difficulty Paying Gas/Electric Bills: No Difficulty Paying for Meds: No Currently Unemployed: No Education: High School Diploma/GED Difficulty w/ Childcare or Family Care: No Occupation/Education: retired Gender identity (if verbalized by the patient): Female Spiritual care concerns: No Exam Const: General: no acute distress Nutritional Appearance: thin Orientation/consciousness: patient oriented x3 Limitations: no limitations HENMT: Head: normal to inspection Eyes: Conjunctivae: conjunctivae normal Pupils: Equal, round and reactive pupils present EOM: EOMs intact bilaterally Neck: Neck: normal visual inspection Chest: Chest palpation & inspection: normal inspection of the chest Resp: Effort & Inspection: normal respiratory effort Auscultation: clear to auscultation bilaterally Cardio: Ra
[2023-04-03 13:23] LABS: Magnesium 2.2 mg/dL (1.8-2.4)
[2023-04-03 13:40] LABS: Hemoglobin A1C 12.1 % (<5.7)
--- NOTE | 2023-04-03 14:23 | ADMGEN ---
This patient, Megan Rueda, was admitted to 2nd Floor Room 208-1. Patient/family oriented to hospital policies and general routines including ID bracelet, bed and alarms, visiting hours, pain management, procedures, bathroom and other care routines, personal items, smoking policy, room service/diet, and visiting hours. Information on how to activate the Rapid Response Team has been discussed. Patient/Family are encouraged to report perceived risks to care and to ask questions if they do not understand what they are told or what they should do.
--- NOTE | 2023-04-03 15:22 | PM.IMHP ---
H&P: HPI History of Present Illness Date/Time: 04/03/23 15:22 Chief Complaint: High blood glucose at primary care office, low blood pressure Narrative: This is a pleasant 77 year old female with a PMH of Dementia, GERD, HLD, HTN, uncontrolled DM, hypothyroidism, right nephrectomy in her teens, RA, and vitamin D deficiency. She presented to [facility] on 04/03 after seeing her PCP for a follow up after being seen in the [facility] ED on 03/28. She had presented to [facility] on 03/28 and was found to be hyperglycemic and anemic. She declined admission but was given a prescription for Iron and colace. Prior to 03/28, she was admitted at [facility] on 03/25 for hyperglycemia and discharged on 03/26. It appears from chart review that she does not have a working glucometer at home. During her follow up appointment her blood glucose was found to be elevated and her blood pressure was 98/42, HR 104. She was sent to [facility] ED for further evaluation. In the ED her labs were significant for a Hgb of 8.0, Hct 28.0, K 5.2, BUN 51, Cr 1.93, blood glucose of 368, Hgb A1c 12.1, Osmo 312, BNP 484, and CRP 5.0. Her U/A shows 3+ glucose and trace protein. During my assessment she is pleasant and conversational. She seems like a poor historian as she is not sure if she takes insulin but then reports that her daughter does come to her house and gives her shots for something. She also is not sure of some of her medications. She denies any complaints. She says I'm here for my blood sugar I guess . She initially denies dizziness but then later during our conversation she mentions that she may have been dizzy a couple of times. She denies headache, SOB, CP, cough, fever, chills, nausea, vomiting, diarrhea, constipation, and recent falls. She says that she lives at home but her daughter and granddaughter are both close. I called and spoke with her daughter Allyson who says that her mother has managed her DM for years and previously had good control. It's just been within the last 2 weeks that she realized her mother was not taking her insulin as prescribed and possibly other medications as well. Her daughter did say that in the last week or so she has been going to her mother's house to administer her lispro mealtime insulin, her lantus, and she sets up her pill box weekly. The patient's blood glucose machine was non-functioning so she brought this to the PCP's attention at today's visit and a new meter has been prescribed. She is being admitted for overnight observation and further workup of her anemia, adjustments to her insulin regimen, and lab monitoring. Review of Systems Review of Systems: All systems reviewed & are unremarkable except as noted in HPI and below PMFSH Past Medical History Medical History (Updated 04/03/23 @ 12:06 by Mercedes Ryder, MAIKOL) Acute pain of left knee GERD without esophagitis Hyperlipidemia associated with type 2 diabetes mellitus Hypothyroidism Kidney disease Rheumatoid arthritis Type 2 diabetes mellitus Vision loss Vitamin D deficiency Surgical History Surgical History H/O right nephrectomy H/O total thyroidectomy History of appendectomy History of rotator cuff surgery Hx of cholecystectomy Hx of tonsillectomy Status post total knee replacement, left Family History Family History (Updated 04/03/23 @ 13:52 by Lina Jeffrey, LAYNE) Father No problems noted. Mother , mother of Alzheimer's Diabetes mellitus Family history of arthritis Other Cancer Social History Social History Social History: Patient designates daughter Allyson as MDM. Patient has been seeing Dr. Melendez as PCP but will see whomever is taking over the practice. Smoking status: Never smoker Second hand tobacco smoke exposure: No Alcohol intake: never Substance use: never Substance use type: does not use Lack of Transportation: YES
[2023-04-03 16:07] LABS: Glucose Point of Care 274 mg/dl (65-105)
[2023-04-03 16:12] LABS: Basophils Absolute Auto 0.04 K/mm3 (0.00-0.10); Basophils Percent Auto 0.7 % (0.0-1.0); Eosinophils Absolute Auto 0.07 K/mm3 (0.02-0.50); Eosinophils Percent Auto 1.3 % (1.0-6.0); Hematocrit 25.6 % (35.0-42.0); Hemoglobin 7.4 g/dL (11.7-13.8); Immature Granulocyte Absolute 0.03 K/mm3 (0.00-0.00); Immature Granulocyte Percent A 0.5 % (0.0-0.0); Lymphocytes Absolute Auto 2.64 K/mm3 (1.10-4.50); Lymphocytes Percent Auto 48.2 % (18.0-42.0); Mean Corpuscular HGB Conc 28.9 g/dL (32.0-36.0); Mean Corpuscular Hemoglobin 23.1 pg (27.0-31.0); Mean Platelet Volume 10.1 fl (9.2-11.8); Monocytes Absolute Auto 0.42 K/mm3 (0.10-0.90); Monocytes Percent Auto 7.7 % (2.0-11.0); Neutrophils Absolute Auto 2.3 K/mm3 (1.7-7.2); Neutrophils Percent Auto 41.6 % (50.0-70.0); Platelet Count Result 220 K/mm3 (150-420); Red Cell Distribution Width 15.7 % (11.6-14.4); White Blood Count 5.5 K/mm3 (4.8-10.8)
[2023-04-03 16:21] LABS: Anion Gap 6 mmol/L (8-16); Blood Urea Nitrogen 49 mg/dL (7-18); Calcium 8.9 mg/dL (8.5-10.1); Carbon Dioxide 28 mmol/L (21-32); Chloride 104 mmol/L (98-108); Estimated CRCL calculation 17 ml/min; Estimated Glomerular Filt Rate 23; Glucose 271 mg/dL (70-99); Osmolality Calculated 309 mOsm/kg (285-295); Potassium 5.5 mmol/L (3.5-5.1); Sodium 138 mmol/L (136-145)
[2023-04-03] MEDS: FERROUS SULFATE 325 MG TABLET DR BY MOUTH (16:39)
[2023-04-03] MEDS: INSULIN HUMAN LISPRO (*BKC) 1,000 UNITS/10 ML VIAL SUB-Q (16:41)
[2023-04-03] MEDS: INSULIN HUMAN LISPRO (*BKC) 1,000 UNITS/10 ML VIAL 5 UNITS SUB-Q (16:46)
--- NOTE | 2023-04-03 18:15 | PC.NURSE ---
Attempt to place 2nd IV line to support IV infusion orders, ER, RN attempt x3 without success.
[2023-04-03] MEDS: DEXTROSE 50% 25 GM/50 ML SYRINGE IV PUSH (18:26)
[2023-04-03] MEDS: SODIUM CHLORIDE 0.9% IV 1,000 ML 100 ML IV CONT (18:30)
[2023-04-03] MEDS: INSULIN HUMAN REGULAR (*BKC) 1,000 UNITS/10 ML VIAL 10 UNITS IV PUSH (18:49)
[2023-04-03] MEDS: CALCIUM GLUC 2,000 MG/NS 100ML 2,000 MG/100 ML BAG 100 MG IVPB (18:52)
[2023-04-03 19:13] LABS: Glucose Point of Care 268 mg/dl (65-105)
[2023-04-03] MEDS: SODIUM CHLORIDE 0.9% IV 250 ML 30 ML IV CONT (19:39)
[2023-04-03] MEDS: PANTOPRAZOLE 40 MG TABLET PO (20:12)
--- NOTE | 2023-04-03 20:15 | PC.NURSE ---
Calcium Gluconate infusion complete, unable to document in MAR at this time.
[2023-04-03 20:38] LABS: Anion Gap 8 mmol/L (8-16); Blood Urea Nitrogen 52 mg/dL (7-18); Calcium 10.1 mg/dL (8.5-10.1); Carbon Dioxide 24 mmol/L (21-32); Chloride 105 mmol/L (98-108); Estimated CRCL calculation 19 ml/min; Estimated Glomerular Filt Rate 26; Glucose 189 mg/dL (70-99); Osmolality Calculated 303 mOsm/kg (285-295); Potassium 5.6 mmol/L (3.5-5.1); Sodium 137 mmol/L (136-145)
[2023-04-03] MEDS: traZODone HCL 50 MG TABLET 100 MG PO (21:42)
[2023-04-03] MEDS: INSULIN GLARGINE (*BKC) 1,000 UNITS/10 ML VIAL 20 UNITS SUB-Q (21:45)
[2023-04-03 21:46] LABS: Glucose Point of Care 169 mg/dl (65-105)
[2023-04-03] MEDS: SODIUM ZIRCONIUM CYCLOSILICATE 5 GM POWD.PACK PO (22:03)
[2023-04-03 23:26] LABS: Glucose Point of Care 155 mg/dl (65-105)
[2023-04-04] VITALS (8 sets, daily range): BP systolic 125–155; BP diastolic 55–87; PULSE 69–111; RESP 16–18; TEMP 35.9–36.3; O2SAT 95–98
[2023-04-04] MEDS: SODIUM CHLORIDE 0.9% IV 1,000 ML 100 ML IV CONT ×2 (04:52→15:05)
--- NOTE | 2023-04-04 05:01 | PC.NURSE ---
Patient's MAR had sodium zirconium cyclosilicate 5 mg scheduled to be given at 1800. Report indicated that this medication was not available in the pyxis, and that we needed to check the pharmary. Pharmacy was checked, and although a bin for this medication was found, it was empty. Pharmacy at [place] was called, and calls were made to the pharmacist at [facility]. Pharmacist indicated that this medication was available in the ER. Medication was obtained, but given late.
[2023-04-04 05:51] LABS: Basophils Absolute Auto 0.05 K/mm3 (0.00-0.10); Basophils Percent Auto 0.7 % (0.0-1.0); Eosinophils Absolute Auto 0.09 K/mm3 (0.02-0.50); Eosinophils Percent Auto 1.3 % (1.0-6.0); Hematocrit 27.4 % (35.0-42.0); Hemoglobin 7.9 g/dL (11.7-13.8); Immature Granulocyte Absolute 0.05 K/mm3 (0.00-0.00); Immature Granulocyte Percent A 0.7 % (0.0-0.0); Lymphocytes Absolute Auto 3.88 K/mm3 (1.10-4.50); Lymphocytes Percent Auto 55.3 % (18.0-42.0); Mean Corpuscular HGB Conc 28.8 g/dL (32.0-36.0); Mean Corpuscular Hemoglobin 23.3 pg (27.0-31.0); Mean Corpuscular Volume 80.8 fL (78.0-102.0); Mean Platelet Volume 9.4 fl (9.2-11.8); Monocytes Absolute Auto 0.51 K/mm3 (0.10-0.90); Monocytes Percent Auto 7.3 % (2.0-11.0); Neutrophils Absolute Auto 2.4 K/mm3 (1.7-7.2); Neutrophils Percent Auto 34.7 % (50.0-70.0); Platelet Count Result 221 K/mm3 (150-420); Red Blood Count 3.39 M/mm3 (4.20-5.40); Red Cell Distribution Width 15.4 % (11.6-14.4)
[2023-04-04 06:35] LABS: Cholesterol 100 mg/dL (0-200); HDL Direct 15 mg/dL (40-60); Iron 23 ug/dL (50-170); LDL Cholesterol Calculated 49 mg/dL (<130); Magnesium 1.9 mg/dL (1.8-2.4); Percent Iron Saturation 11 % (12-57); Phosphorus 3.8 mg/dL (2.6-4.7); Triglycerides 182 mg/dL (0-150); Vitamin B12 938 pg/mL (193-986)
[2023-04-04 06:36] LABS: Folic Acid > 20.0 ng/mL (8.6->20)
[2023-04-04 07:40] LABS: Glucose Point of Care 135 mg/dl (65-105)
--- NOTE | 2023-04-04 08:01 | PM.IMPN ---
Progress Note: A&P Assessment and Plan (1) Anemia: Code(s): D64.9 - Anemia, unspecified Status: Acute Assessment and Plan: 8.0 ...7.4 on admission 1 unit of blood given currently 7.9 (2) Diabetes mellitus: Qualifiers: Chronic kidney disease stage: stage 4 (severe) Diabetes mellitus complication detail: with chronic kidney disease Diabetes mellitus complication status: with kidney complications Diabetes mellitus detention insulin use: with long distance operator use Diabetes mellitus type: type 2 Qualified Code(s): E11.22 - Type 2 diabetes mellitus with diabetic chronic kidney disease; N18.4 - Chronic kidney disease, stage 4 (severe); Z79.4 - detention (current) use of insulin Code(s): E11.9 - Type 2 diabetes mellitus without complications Status: Acute Assessment and Plan: accu- check sliding scale insulin IV fluids Patient states her daughters give her insulin at night time before bed. (3) Acute renal failure: Qualifiers: Acute renal failure type: unspecified Qualified Code(s): N17.9 - Acute kidney failure, unspecified Code(s): N17.9 - Acute kidney failure, unspecified Status: Acute Assessment and Plan: Patient has one kidney and her kidney function is improving. (4) Acute dehydration: Code(s): E86.0 - Dehydration Status: Acute Assessment and Plan: IVF will continue to monitor. (5) Dementia: Code(s): F03.90 - Unspecified dementia, unspecified severity, without behavioral disturbance, psychotic disturbance, mood disturbance, and anxiety Status: Acute (6) Hyperkalemia: Code(s): E87.5 - Hyperkalemia Status: Acute Assessment and Plan: 5.6...5.5 Sodium Zirconium 5 m bid was ordered changed to 10mg Tid and for labs to be drawn today at 14oo will monitor closely. Subjective Date/time seen: 04/04/23 08:01 Interval history: Patient in room resting and eating and drinking. Patient hgb has come up to 7.9 and her potassium is currently? I am concern about patient being home and not taking insulin she may better benefit with assisted living and or [facility]. Family states that they come and give Patient is pleasant wanting to go home. I will place order for guiac to ensure there is no active bleeding and result from iron studies looks like anemia of chronic disease/inflammatory anemia. We will still check guiac but I highly doubt patient is bleeding from anywhere. We will complete a few more test and possible discharge today and or tomorrow depending on results. My concern is that patient is not getting insulin as she live alone and family says they come and give her medication patient informs me she forgot to take her insulin. I reviewed patient office visit with her PCP Mercedes and she is ordering patient a teresa for her to be able to take her medication accordingly. Exam Narrative: General: well appearing, well developed, well nourished, appears stated age. HEENT: normocephalic, atraumatic. Mucous membranes moist. EOMI, PERRLA. Respiratory: clear to auscultation bilaterally. Cardiovascular: Regular rate and rhythm, normal S1-S2 upon auscultation. capillary re-fill less than 3 second. Abdomen: Soft, round, no pulsatile masses, non-distended and non-tender. No rebound, no guarding. No CVA tenderness Bowel sounds present to all four quadrants. No high pitch or tinkling sounds, resonant to percussion. Extremities: No cyanosis, clubbing, or edema present. Pulses are palpable 2/2. Active ROM to all four extremities. Neuro: Alert and orientated x 2-3 w some confusion at times.. PERRLA. Skin: Warm, dry, and intact, without rash, erythema, or lesion. Ecchymosis to left arm from previous blood draws. Psych: pleasant, cooperative, normal speech Objective Data Vital Signs Vital Signs: Vital Signs - 24 hr 04/03/23 09:33 04/03/23 09:45 04/03/23 09:46 Temperature 97.1 F L Pulse Rate 105 H 97 96
[2023-04-04 08:10] LABS: Anion Gap 10 mmol/L (8-16); Blood Urea Nitrogen 43 mg/dL (7-18); Calcium 8.8 mg/dL (8.5-10.1); Carbon Dioxide 22 mmol/L (21-32); Chloride 109 mmol/L (98-108); Estimated CRCL calculation 24 ml/min; Estimated Glomerular Filt Rate 34; Glucose 142 mg/dL (70-99); Osmolality Calculated 304 mOsm/kg (285-295); Potassium 5.5 mmol/L (3.5-5.1); Sodium 141 mmol/L (136-145)
[2023-04-04] MEDS: INSULIN HUMAN LISPRO (*BKC) 1,000 UNITS/10 ML VIAL 5 UNITS SUB-Q ×3 (08:55→17:03)
--- NOTE | 2023-04-04 09:06 | PM.DS ---
DS: Admitting Diagnosis Discharge Date 03/25/2023 Admitting Diagnosis Urinary tract infection, Hyperglycimia DS: Discharge Diagnosis Discharge Diagnosis Plan DM : Patient family is going to come into the home and give patient her insulin 4x a day with each meal and at bedtime. Uti: Patient has been treated with antibiotic and IV fluids while here will discharge home with antibiotics and she will follow up with PCP. Patient has one kidney per family Pneumonia: Patient is being sent home with antibiotic and will follow p with pcp DS: Summary Hospital Course Reason for hospitalization: DKA, UTI/Cystitis, dementia, noncompliance Hospital Course: This is a 77 years old lady who is pleasantly has moment of confusion. Patient while here has been treated with Insulin, IVF and IV antibioics. Patient is anxious for discharge and is truly unaware of what she is taking at home. Patient had some Acute on chronic kidney injury and has not been taking her medication according to family she was on insulin and oral medication but did not take any in the last year almost. Patient is not able to remember what medication she is supposed to take at home but her daughter has informed me personally that she is able to give her the medication as directed. Patient is able to ambulate and eating and drinking without difficulties she has remained afebrile and her blood sugars are a lot better. Mrs. Rueda hgba1c is 12.7 and after reviewing previous about 6 month ago her level around 7. Mrs. Rueda will need close follow up with her pcp. we will discharge home at this time Time Spent with Patient Time attestation: Total time spent providing and/or coordinating discharge services: Exam Narrative: General: well appearing, well developed, well nourished, appears stated age. HEENT: normocephalic, atraumatic. Mucous membranes moist. EOMI, PERRLA. Respiratory: clear to auscultation bilaterally. Cardiovascular: Regular rate and rhythm, normal S1-S2 upon auscultation. capillary re-fill less than 3 second. Abdomen: Soft, round, no pulsatile masses, non-distended and non-tender. No rebound, no guarding. Neuro: Alert and orientated x 2-3 w some confusion at times.. PERRLA. Skin: Warm, dry, and intact, without rash, erythema, or lesion. Ecchymosis to left arm from previous blood draws. Psych: pleasant, cooperative, normal speech DS: Data Data Completed and Pending Labs on day of discharge: Labs from last 24 hours 04/04/23 04/04/23 04/03/23 07:34 05:30 23:20 WBC 7.0 RBC 3.39 L Hgb 7.9 L Hct 27.4 L MCV 80.8 MCH 23.3 L MCHC 28.8 L RDW 15.4 H Plt Count 221 MPV 9.4 Immature Gran % (Auto) 0.7 H Neut % (Auto) 34.7 L Lymph % (Auto) 55.3 H [place] % (Auto) 7.3 Eos % (Auto) 1.3 Baso % (Auto) 0.7 Lymph # (Auto) 3.88 [place] # (Auto) 0.51 Eos # (Auto) 0.09 Baso # (Auto) 0.05 Abs Immat Gran (auto) 0.05 H Absolute Neuts (auto) 2.4 Absolute Nucleated RBC 0.00 Total Counted Neutrophils % (Manual) Band Neutrophils % Lymphocytes % (Manual) Monocytes % (Manual) Eosinophils % (Manual) Nucleated RBC % 0.0 Abs Neuts (Manual) Abs Lymphs (Manual) Abs Monocytes (Manual) Absolute Eos (Manual) Platelet Estimate Schistocytes Sodium 141 Potassium 5.5 H Chloride 109 H Carbon Dioxide 22 Anion Gap 10 BUN 43 H Creatinine 1.47 H Estim Creat Clear Calc 24 Estimated GFR 34 L Glucose 142 H POC Capillary Glucose 135 H 155 H Hemoglobin A1c Calculated Osmolality 304 H Lactic Acid Calcium 8.8 Phosphorus 3.8 Magnesium 1.9 Iron 23 L TIBC 202 L % Saturation 11 L Total Bilirubin AST ALT Alkaline Phosphatase Troponin I C-Reactive Protein NT-Pro-B Natriuret Pep Total Protein Albumin Triglycerides 182 H Cholesterol 100 LDL Cholesterol, Calc 49 HDL Direct 15 L V
[2023-04-04] MEDS: ENOXAPARIN 30 MG/0.3 ML SYRINGE SUB-Q (09:23)
[2023-04-04] MEDS: MEMANTINE 5 MG TABLET PO (09:24)
[2023-04-04] MEDS: PANTOPRAZOLE 40 MG TABLET PO ×2 (09:24→20:23)
[2023-04-04] MEDS: FERROUS SULFATE 325 MG TABLET DR BY MOUTH ×2 (09:24→17:03)
[2023-04-04] MEDS: THERAPEUTIC MULTIVITAMINS/MINERALS TAB (*BKC) 1 TABLET PO (09:24)
[2023-04-04 11:36] LABS: Glucose Point of Care 196 mg/dl (65-105)
[2023-04-04] MEDS: SODIUM ZIRCONIUM CYCLOSILICATE 5 GM POWD.PACK 10 GM PO (11:44)
--- NOTE | 2023-04-04 14:50 | PHAR ---
pt has allergy noted to glycopyrrolate. tiotorpium ordered, but umeclidium is therapeutic sub. screen through allergy/interaction tool in [employer], and no cross-sensitivity between glycopyrrolate allergy and umeclidium use noted.
[2023-04-04 16:39] LABS: Glucose Point of Care 147 mg/dl (65-105)
[2023-04-04] MEDS: traZODone HCL 50 MG TABLET 100 MG PO (20:22)
[2023-04-04] MEDS: INSULIN GLARGINE (*BKC) 1,000 UNITS/10 ML VIAL 20 UNITS SUB-Q (20:23)
[2023-04-04 20:24] LABS: Glucose Point of Care 218 mg/dl (65-105)
[2023-04-05] MEDS: SODIUM CHLORIDE 0.9% IV 1,000 ML 100 ML IV CONT (01:27)
[2023-04-05 03:01] VITALS: PULSE 92
[2023-04-05 05:33] LABS: Hemoglobin 8.7 g/dL (11.7-13.8); Mean Corpuscular Hemoglobin 24.2 pg (27.0-31.0); Mean Corpuscular Volume 80.6 fL (78.0-102.0); Mean Platelet Volume 8.8 fl (9.2-11.8); Platelet Count Result 210 K/mm3 (150-420); Red Cell Distribution Width 15.6 % (11.6-14.4); White Blood Count 5.5 K/mm3 (4.8-10.8)
[2023-04-05 05:47] LABS: Anion Gap 7 mmol/L (8-16); Blood Urea Nitrogen 16 mg/dL (7-18); Calcium 8.8 mg/dL (8.5-10.1); Carbon Dioxide 24 mmol/L (21-32); Chloride 112 mmol/L (98-108); Estimated CRCL calculation 36 ml/min; Estimated Glomerular Filt Rate 56; Glucose 113 mg/dL (70-99); Osmolality Calculated 298 mOsm/kg (285-295); Potassium 4.2 mmol/L (3.5-5.1); Sodium 143 mmol/L (136-145)
[2023-04-05 08:00] VITALS: PULSE 84
[2023-04-05 08:24] VITALS: BP 129/77; PULSE 87; RESP 16; TEMP 36.2; O2SAT 96
[2023-04-05 08:25] LABS: Glucose Point of Care 159 mg/dl (65-105)
--- NOTE | 2023-04-05 09:51 | PM.DS ---
DS: Admitting Diagnosis Discharge Date 04/05/ Admitting Diagnosis anemia, dehydration DS: Discharge Diagnosis Discharge Diagnosis (1) Anemia: Code(s): D64.9 - Anemia, unspecified Status: Acute (2) Diabetes mellitus: Qualifiers: Chronic kidney disease stage: stage 4 (severe) Diabetes mellitus complication detail: with chronic kidney disease Diabetes mellitus complication status: with kidney complications Diabetes mellitus snf insulin use: with longwall foreman use Diabetes mellitus type: type 2 Qualified Code(s): E11.22 - Type 2 diabetes mellitus with diabetic chronic kidney disease; N18.4 - Chronic kidney disease, stage 4 (severe); 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) use of insulin Code(s): E11.9 - Type 2 diabetes mellitus without complications Status: Acute (3) Acute renal failure: Qualifiers: Acute renal failure type: unspecified Qualified Code(s): N17.9 - Acute kidney failure, unspecified Code(s): N17.9 - Acute kidney failure, unspecified Status: Acute (4) Acute dehydration: Code(s): E86.0 - Dehydration Status: Acute (5) Dementia: Code(s): F03.90 - Unspecified dementia, unspecified severity, without behavioral disturbance, psychotic disturbance, mood disturbance, and anxiety Status: Acute (6) Hyperkalemia: Code(s): E87.5 - Hyperkalemia Status: Acute DS: Summary Hospital Course Reason for hospitalization: UTI, Hospital Course: This is a 77 years old lady who is pleasantly has moment of confusion. Patient while here has been treated with Insulin, IVF and IV antibioics. Patient is anxious for discharge and is truly unaware of what she is taking at home. Patient had some Acute on chronic kidney injury and has not been taking her medication according to family she was on insulin and oral medication but did not take any in the last year almost. Patient is not able to remember what medication she is supposed to take at home but her daughter has informed me personally that she is able to give her the medication as directed. Patient is able to ambulate and eating and drinking without difficulties she has remained afebrile and her blood sugars are a lot better. Mrs. Rueda hgba1c is 12.7 and after reviewing previous about 6 month ago her level around 7. Mrs. Rueda will need close follow up with her pcp. we will discharge home at this time Patient was going to go yesterday but we changed and discharge pateint today Time Spent with Patient Time attestation: Total time spent providing and/or coordinating discharge services: Exam Narrative: GENERAL:Well-appearing, well-nourished, and in no acute distress. HEAD:Normocephalic, atraumatic. EYES: PERRLA and EOMI. ENT: Nares clear, no rhinorrhea or epistaxis. Mucous membranes moist. NECK: Supple. CHEST: Clear to auscultation. No respiratory distress. HEART: Regular rate and rhythm. No murmur heard. Normal peripheral pulses. ABDOMEN: Soft, nontender, nondistended, normal active bowel sounds. EXTREMITIES: Normal range of motion. No edema. SKIN: Warm, dry, no rash. NEURO: No focal deficits. Alert and oriented x3. DS: Data Data Completed and Pending Labs on day of discharge: Labs from last 24 hours 04/05/23 04/05/23 04/04/23 08:23 05:26 20:18 WBC 5.5 RBC 3.60 L Hgb 8.7 L Hct 29.0 L MCV 80.6 MCH 24.2 L MCHC 30.0 L RDW 15.6 H Plt Count 210 MPV 8.8 L Sodium 143 Potassium 4.2 Chloride 112 H Carbon Dioxide 24 Anion Gap 7 L BUN 16 Creatinine 0.96 Estim Creat Clear Calc 36 Estimated GFR 56 L Glucose 113 H POC Capillary Glucose 159 H 218 H Calculated Osmolality 298 H Calcium 8.8 04/04/23 04/04/23 04/04/23 16:33 13:58 11:34 WBC RBC Hgb Hct MCV MCH MCHC RDW Plt Count MPV Sodium Potassium 4.0 Chloride Carbon Dioxide Anion Gap BUN Cr
[2023-04-05] MEDS: MEMANTINE 5 MG TABLET PO (09:59)
[2023-04-05] MEDS: PANTOPRAZOLE 40 MG TABLET PO (09:59)
[2023-04-05] MEDS: THERAPEUTIC MULTIVITAMINS/MINERALS TAB (*BKC) 1 TABLET PO (09:59)
[2023-04-05] MEDS: ENOXAPARIN 30 MG/0.3 ML SYRINGE SUB-Q (10:00)
[2023-04-05] MEDS: FERROUS SULFATE 325 MG TABLET DR BY MOUTH (10:00)
[2023-04-05] MEDS: INSULIN HUMAN LISPRO (*BKC) 1,000 UNITS/10 ML VIAL 5 UNITS SUB-Q (10:01)
--- NOTE | 2023-04-05 10:40 | PC.NURSE ---
Patient discharging home. Granddaughter Alida here to transport patient home. IV site removed, tip intact, dressing applied site. All discharge instructions and education reviewed with patient and granddaughter. Both parties state understanding. All belongings gathered and sent home with patient. Patient dressing in clothing from home with minimal assist. Patient left floor ambulatory with granddaughter, denied need for wheelchair ride to front door.
--- NOTE | 2023-04-09 09:16 | PC.NURSE ---
Discharge call back attempted, no answer
--- NOTE | 2023-04-14 08:32 | PC.NURSE ---
discharge call back attempted, no answer
== END 2023-04-05 10:40 | disposition home or self-care (01) ==
LOC: CHSED 12:12 → CHS2ND 12:55
PROVIDERS: Nurse Practitioner; Nurse Practitioner Acute Care; Nurse Practitioner Family; Admitting Provider Internal Medicine; Emergency Provider Emergency Medicine; PCP Nurse Practitioner Family; Visit Provider Internal Medicine
DX: E11.65 Type 2 diabetes mellitus with hyperglycemia (principal); N17.9 Acute kidney failure, unspecified; I12.9 Hypertensive chronic kidney disease with stage 1 through stage 4 chronic kidney disease, or unspecified chronic kidney disease; N18.4 Chronic kidney disease, stage 4 (severe); E86.0 Dehydration; E87.5 Hyperkalemia; E78.5 Hyperlipidemia, unspecified; E03.9 Hypothyroidism, unspecified; E11.22 Type 2 diabetes mellitus with diabetic chronic kidney disease; E55.9 Vitamin D deficiency, unspecified; M06.9 Rheumatoid arthritis, unspecified; D64.9 Anemia, unspecified; K21.9 Gastro-esophageal reflux disease without esophagitis; F03.90 Unspecified dementia, unspecified severity, without behavioral disturbance, psychotic disturbance, mood disturbance, and anxiety; Z79.4 Long term (current) use of insulin; Z96.652 Presence of left artificial knee joint; Z90.5 Acquired absence of kidney
CPT/HCPCS: 36415; 36430; 71045; 80048; 80053; 80061; 81001; 82607; 82746; 82948; 83036; 83540; 83550; 83605; 83735; 83880; 84100; 84132; 84484; 85025; 85027; 86140; 86850; 86900; 86901; 86920; 87637; 93005; 96360; 96361; 96365; 96375; 99285; A9270; G0378; J0613; J1650; J1815; J7030; J7040; J7050; P9016

== ENCOUNTER 2023-04-09 14:36 | Outpatient (CLI) | payer MEDICARE, SELFPAY ==
[2023-04-09 14:46] LABS: Basophils Absolute Auto 0.03 K/mm3 (0.00-0.10); Basophils Percent Auto 0.6 % (0.0-1.0); Eosinophils Absolute Auto 0.07 K/mm3 (0.02-0.50); Eosinophils Percent Auto 1.5 % (1.0-6.0); Hematocrit 33.6 % (35.0-42.0); Hemoglobin 9.5 g/dL (11.7-13.8); Immature Granulocyte Absolute 0.01 K/mm3 (0.00-0.00); Immature Granulocyte Percent A 0.2 % (0.0-0.0); Lymphocytes Absolute Auto 1.74 K/mm3 (1.10-4.50); Mean Corpuscular HGB Conc 28.3 g/dL (32.0-36.0); Mean Corpuscular Hemoglobin 23.7 pg (27.0-31.0); Mean Corpuscular Volume 83.8 fL (78.0-102.0); Mean Platelet Volume 9.7 fl (9.2-11.8); Monocytes Absolute Auto 0.32 K/mm3 (0.10-0.90); Monocytes Percent Auto 6.8 % (2.0-11.0); Neutrophils Absolute Auto 2.5 K/mm3 (1.7-7.2); Neutrophils Percent Auto 53.9 % (50.0-70.0); Platelet Count Result 251 K/mm3 (150-420); Red Blood Count 4.01 M/mm3 (4.20-5.40); Red Cell Distribution Width 15.9 % (11.6-14.4); White Blood Count 4.7 K/mm3 (4.8-10.8)
== END 2023-04-09 14:37 | disposition home or self-care (01) ==
LOC: CHSLAB 14:37
PROVIDERS: PCP Nurse Practitioner Family; Visit Provider Nurse Practitioner Family
DX: D64.9 Anemia, unspecified (principal)
CPT/HCPCS: 36415; 85025

== ENCOUNTER 2023-04-16 12:15 | Outpatient (CLI) | payer MEDICARE, SELFPAY ==
--- NOTE | 2023-04-16 12:45 | PC.NURSE ---
Patient here for venofer infusion. Tolerated IV start fair. Provided with water and warm blanket per request. Denies any further needs at this time. Daughter dropped patient off, states she will be back in a couple hours to pick patient up.
[2023-04-16] MEDS: IRON SUCROSE COMPLEX 300 MG in SODIUM CHLORIDE 0.9% IV 250 ML 125 MG IVPB (12:54)
--- NOTE | 2023-04-16 15:00 | PC.NURSE ---
Patient tolerated Infusion well. Denies any s/s of adverse reactions. IV site removed, tip intact dressing applied to site. Education given for post Venofer infusion, provided with printed education. Next appt made for 04/21 at 1230. Patient denies any questions at this time. Patient left floor ambulatory accompanied by daughter.
== END 2023-04-16 12:16 | disposition home or self-care (01) ==
PROVIDERS: PCP Nurse Practitioner Family; Visit Provider Nurse Practitioner Family
DX: D64.9 Anemia, unspecified (principal)
CPT/HCPCS: 96365; 96366; J1756; J7050

== ENCOUNTER 2023-04-23 12:20 | Outpatient (CLI) | payer MEDICARE, SELFPAY ==
[2023-04-23] MEDS: IRON SUCROSE COMPLEX 300 MG in SODIUM CHLORIDE 0.9% IV 250 ML 125 MG IVPB (12:43)
[2023-04-23 13:38] VITALS: BP 120/64; PULSE 78; RESP 18; TEMP 36.6; O2SAT 96
[2023-04-23 13:45] VITALS: BMI 29.2
== END 2023-04-23 12:21 | disposition home or self-care (01) ==
LOC: CHSTREATRM 12:22
PROVIDERS: PCP Nurse Practitioner Family; Visit Provider Nurse Practitioner Family
DX: D50.9 Iron deficiency anemia, unspecified (principal)
CPT/HCPCS: 96365; 96366; J1756; J7050

== ENCOUNTER 2023-04-28 12:18 | Outpatient (CLI) | payer MEDICARE, SELFPAY ==
[2023-04-28 12:42] VITALS: BMI 29.2
[2023-04-28] MEDS: IRON SUCROSE COMPLEX 300 MG in SODIUM CHLORIDE 0.9% IV 250 ML 125 MG IVPB (12:50)
[2023-04-28 12:53] VITALS: BP 152/60; PULSE 72; RESP 14; TEMP 36.3; O2SAT 98
--- NOTE | 2023-04-29 07:05 | PC.NURSE ---
04/28/23 1500 Patient here for #3 of 3 IV Venofer infusions. NO concerns voiced. Reports did well with last two infusions. IV Venofer administered. See MAR. Tolerated well. Safe exit of hospital per self/ambulatory. Will return in the week for labs.
== END 2023-04-28 12:19 | disposition home or self-care (01) ==
LOC: CHSTREATRM 12:21
PROVIDERS: PCP Nurse Practitioner Family; Visit Provider Nurse Practitioner Family
DX: D50.9 Iron deficiency anemia, unspecified (principal)
CPT/HCPCS: 96365; 96366; J1756; J7050

== ENCOUNTER 2023-08-14 14:47 | Emergency (ER) | payer MEDICARE, SELFPAY ==
--- NOTE | ~2023-08-14 | XR_ITS ---
XR chest 1V portable DATE: 08/14/2023 15:34 INDICATION: Weakness. Hyperglycemia. TECHNIQUE: Portable upright AP chest on 08/14/2023 at 1538 hours COMPARISON: 04/03/2023 portable AP chest on 1128 hours FINDINGS: Normal heart size. No hilar or mediastinal enlargement. No pulmonary infiltrate or consolid ation, pleural effusion or pulmonary vascular congestion or pneumothorax. There is degenerative spurring and mild levoscoliosis of the thoracic spine. Plate and screws are noted at the left humeral head and proximal humeral shaft. Osteopenia. IMPRESSION: No active cardiopulmonary disease Reviewed, dictated and finalized at location [employer]. 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
[2023-08-14 14:53] VITALS: BP 131/67; PULSE 99; RESP 12; TEMP 36.7; O2SAT 94
--- NOTE | 2023-08-14 14:53 | ECG_ITS ---
Measurements Intervals [place] Rate: 84 P: 51 FL: 166 QRS: 64 QRSD: 88 T: 40 QT: 345 QTc: 409 Interpretive Statements SINUS RHYTHM EARLY PRECORDIAL R/S TRANSITION BASELINE ARTIFACT- I, III, AVR, AVL, AVF, V5-V6 BORDERLINE ECG COMPARED TO ECG 04/03/2023 10:13:13 NO SIGNIFICANT CHANGES Electronically Signed On 08-14-2023 16:00:42 TRANSPORTATION EQUIPMENT PAINTER by Chidi Lewis D.O.
[2023-08-14 14:54] LABS: Glucose Point of Care > 450 mg/dl (65-105)
[2023-08-14 15:17] LABS: Basophils Absolute Auto 0.02 K/mm3 (0.00-0.10); Basophils Percent Auto 0.3 % (0.0-1.0); Eosinophils Absolute Auto 0.09 K/mm3 (0.02-0.50); Eosinophils Percent Auto 1.3 % (1.0-6.0); Hematocrit 35.6 % (35.0-42.0); Hemoglobin 10.9 g/dL (11.7-13.8); Immature Granulocyte Absolute 0.03 K/mm3 (0.00-0.00); Immature Granulocyte Percent A 0.4 % (0.0-0.0); Lymphocytes Absolute Auto 2.71 K/mm3 (1.10-4.50); Lymphocytes Percent Auto 38.1 % (18.0-42.0); Mean Corpuscular HGB Conc 30.6 g/dL (32.0-36.0); Mean Platelet Volume 9.5 fl (9.2-11.8); Monocytes Absolute Auto 0.39 K/mm3 (0.10-0.90); Monocytes Percent Auto 5.5 % (2.0-11.0); Neutrophils Absolute Auto 3.9 K/mm3 (1.7-7.2); Neutrophils Percent Auto 54.4 % (50.0-70.0); Platelet Count Result 194 K/mm3 (150-420); Red Blood Count 4.19 M/mm3 (4.20-5.40); Red Cell Distribution Width 14.2 % (11.6-14.4); White Blood Count 7.1 K/mm3 (4.8-10.8)
[2023-08-14 15:25] LABS: Appearance Urine Clear (Clear); Bilirubin Urine Negative (Negative); Blood Urine Negative (Negative); Color Urine Light Yellow (Yellow); Glucose Urine UA 3+ (Negative); Ketones Urine Negative (Negative); Leukocyte Esterase Ur Negative LEU/UL (Negative); Nitrate Urine Negative (Negative); Protein Urine Negative (Negative); Specific Grav Ur <= 1.005 (1.010-1.020); Urobilinogen Urine 0.2 mg/dL (0.2-1.0); pH Urine 5.5 (5.0-8.0)
[2023-08-14] MEDS: SODIUM CHLORIDE 0.9% IV 1,000 ML 999 ML IV CONT ×2 (15:27→16:23)
[2023-08-14 15:28] LABS: Add Urine Microscopic? YES; Bacteria Urine Trace /hpf; RBC Urine None seen /hpf (0-2); Squamous Epithelial Cell Urine Few /hpf (Few); WBC Urine None seen /hpf (0-3)
[2023-08-14 15:32] LABS: CRP 3.9 mg/dL (0.0-0.9)
[2023-08-14 15:35] LABS: Lactic Acid Reflex 2.6 mmol/L (0.4-2.0)
[2023-08-14 15:38] LABS: Alanine Aminotransferase 26 U/L (14-59); Albumin Level 3.4 g/dL (3.4-5.0); Alkaline Phosphatase 217 U/L (46-116); Anion Gap 11 mmol/L (8-16); Bilirubin,Total 0.3 mg/dL (0.00-1.00); Blood Urea Nitrogen 63 mg/dL (7-18); Calcium 8.9 mg/dL (8.5-10.1); Carbon Dioxide 25 mmol/L (21-32); Chloride 91 mmol/L (98-108); Estimated CRCL calculation 15 ml/min; Estimated Glomerular Filt Rate 23; Magnesium 2.3 mg/dL (1.8-2.4); Phosphorus 3.8 mg/dL (2.6-4.7); Potassium 5.2 mmol/L (3.5-5.1); Sodium 127 mmol/L (136-145)
[2023-08-14 15:42] LABS: NT Pro B Type Natriuretic Pept 330 pg/mL (0-450)
[2023-08-14 15:49] LABS: Glucose > 800 mg/dL (70-99); Osmolality Calculated 321 mOsm/kg (285-295)
[2023-08-14 15:53] LABS: SARS-CoV-2 RNA PCR Negative (Negative)
[2023-08-14 15:54] LABS: Influenza A QL RT-PCR Negative (Negative); Influenza B QL RT-PCR Negative (Negative); RSV RNA, RT-PCR Negative (Negative)
[2023-08-14 15:59] LABS: Aspartate Amino Transferase 10 U/L (15-37)
[2023-08-14 16:20] LABS: Glucose Point of Care > 450 mg/dl (65-105)
[2023-08-14] MEDS: INSULIN HUMAN REGULAR (*BKC) 1,000 UNITS/10 ML VIAL 9 UNITS IV PUSH (16:30)
[2023-08-14 16:50] VITALS: BP 152/74; PULSE 68; RESP 18; TEMP 36.8; O2SAT 98
[2023-08-14 17:03] LABS: Glucose Point of Care > 450 mg/dl (65-105)
[2023-08-14 17:18] LABS: Base Excess ABG -1.4 mmol/L (0-2); HCO3 ABG 20.5 mmol/L (23-29); Oxygen Saturation ABG 98.1 % (95-97); Oxyhemoglobin 97.3 % (94-100); PCO2 ABG 25.5 mmHg (35-45); PO2 ABG 110.2 mmHg (75-85); Total Hemoglobin 10.1 g/dL (12.0-18.0); pH ABG 7.52 (7.35-7.45)
[2023-08-14 17:19] LABS: Device ROOM AIR; Modified Allen's Test Pass; Site Drawn LEFT RADIAL
[2023-08-14 17:33] LABS: Glucose 513 mg/dL (70-99)
[2023-08-14 17:35] LABS: Anion Gap 10 mmol/L (8-16); Blood Urea Nitrogen 54 mg/dL (7-18); Carbon Dioxide 22 mmol/L (21-32); Chloride 101 mmol/L (98-108); Estimated CRCL calculation 18 ml/min; Estimated Glomerular Filt Rate 28; Osmolality Calculated 313 mOsm/kg (285-295); Potassium 4.4 mmol/L (3.5-5.1); Sodium 133 mmol/L (136-145)
[2023-08-14 17:36] LABS: Alanine Aminotransferase 21 U/L (14-59); Albumin Level 2.6 g/dL (3.4-5.0); Alkaline Phosphatase 169 U/L (46-116); Aspartate Amino Transferase 5 U/L (15-37); Bilirubin,Total 0.2 mg/dL (0.00-1.00); Calcium 7.9 mg/dL (8.5-10.1); Total Protein 5.6 g/dL (6.4-8.2)
[2023-08-14] MEDS: INSULIN HUMAN LISPRO (*BKC) 1,000 UNITS/10 ML VIAL 10 UNITS SUB-Q (18:03)
[2023-08-14 18:14] LABS: Reflex Lactic Acid Yes or No Add Lactic
--- NOTE | 2023-08-14 18:25 | ED.WEAKNESS ---
HPI - Weakness General Chief complaint: Weakness Stated complaint: high blood sugar Time Seen by Provider: 08/14/23 14:52 Source: patient and family Mode of arrival: ambulatory Limitations: no limitations History of Present Illness HPI Narrative: This is 77-year-old female with history dementia and diabetes currently insulin and had a high blood sugar reading and presented patient with no chest pain no shortness of breath no fever chills no nausea vomiting no abdominal pain no diarrhea constipation. Complaint: generalized weakness Onset (ago): hour(s) Duration: constant Location: generalized Severity: mild Related Data Home Medications Medication Instructions Recorded Confirmed eaekumbe-ooe-dtgji acid 0.4 1 tablet PO DAILY 06/04/19 08/14/23 mg-lycopene 300 mcg-lutein 250 mcg tablet (Centrum Silver) insulin degludec 100 unit/mL 10 unit subcut DAILY 04/03/23 08/14/23 subcutaneous solution (Tresiba U-100 Insulin) lisinopril 10 mg tablet 10 mg PO DAILY 04/03/23 08/14/23 Allergies Allergy/AdvReac Type Severity Reaction Status Date / Time No Known Allergies Allergy Verified 08/14/23 15:07 Review of Systems Review of Systems: All systems reviewed & are unremarkable except as noted in HPI and below PMFSH Past Medical History Medical History (Updated 08/14/23 @ 18:30 by Griffin Wu MD) Acute pain of left knee GERD without esophagitis Hyperlipidemia associated with type 2 diabetes mellitus Hypothyroidism Kidney disease Rheumatoid arthritis Type 2 diabetes mellitus Vision loss Vitamin D deficiency Surgical History Surgical History H/O right nephrectomy H/O total thyroidectomy History of appendectomy History of rotator cuff surgery Hx of cholecystectomy Hx of tonsillectomy Status post total knee replacement, left Family History Family History Father No problems noted. Mother , mother of Alzheimer's Diabetes mellitus Family history of arthritis Other Cancer Social History Social History Social History: Patient designates daughter Allyson as MDM. Patient has been seeing Dr. Melendez as PCP but will see whomever is taking over the practice. Smoking status: Never smoker Second hand tobacco smoke exposure: No Alcohol intake: never Substance use: never Substance use type: does not use Lack of Transportation: YES Lack of Food: Never True Current Housing: I Do Not Have Housing Concerned About Future Housing: No Difficulty Paying Gas/Electric Bills: No Difficulty Paying for Meds: No Currently Unemployed: No Education: High School Diploma/GED Difficulty w/ Childcare or Family Care: No Occupation/Education: retired Gender identity (if verbalized by the patient): Female Spiritual care concerns: No Exam Const: General: healthy appearing and no acute distress Nutritional Appearance: well nourished Orientation/consciousness: patient oriented x3 Limitations: no limitations HENMT: Head: normal to inspection Neck: Neck: normal visual inspection, no lymphadenopathy and no meningeal signs Chest: Chest palpation & inspection: normal inspection of the chest Resp: Effort & Inspection: normal respiratory effort Auscultation: clear to auscultation bilaterally Cardio: Rate: regular rate Rhythm: regular rhythm GI: GI Palp: Yes Soft to palpation Back/Spine/Pelvis: Back: no CVA tenderness Skin: General skin exam: normal color Rashes: no rashes Neuro: General: patient oriented x3 and moves all extremities Psych: Mental Status: mental status grossly normal Affect: normal affect Course Course Emergency Course: Patient received IV fluids and 9 units of IV insulin and had rechecked her blood glucose level initially read greater than 800 and subsequent
[2023-08-14 18:26] LABS: Glucose Point of Care 419 mg/dl (65-105)
[2023-08-14 18:30] VITALS: BP 149/86; PULSE 79; RESP 16; TEMP 36.6; O2SAT 99
== END 2023-08-14 18:35 | disposition home or self-care (01) ==
PROVIDERS: Emergency Provider Emergency Medicine; PCP Nurse Practitioner Family
DX: E11.65 Type 2 diabetes mellitus with hyperglycemia (principal); F03.90 Unspecified dementia, unspecified severity, without behavioral disturbance, psychotic disturbance, mood disturbance, and anxiety; E78.5 Hyperlipidemia, unspecified; E03.9 Hypothyroidism, unspecified; Z79.4 Long term (current) use of insulin; Z20.822 Contact with and (suspected) exposure to COVID-19
CPT/HCPCS: 36415; 36600; 71045; 80053; 81001; 82805; 82948; 83605; 83735; 83880; 84100; 85025; 86140; 87637; 93005; 96361; 96374; 99284; J1815; J7030

== ENCOUNTER 2023-08-19 16:22 | Outpatient (CLI) | payer MEDICARE, SELFPAY ==
[2023-08-19 16:34] LABS: Appearance Urine Clear (Clear); Bilirubin Urine Negative (Negative); Blood Urine Negative (Negative); Color Urine Light Yellow (Yellow); Glucose Urine UA 3+ (Negative); Ketones Urine Negative (Negative); Leukocyte Esterase Ur Negative LEU/UL (Negative); Nitrate Urine Negative (Negative); Protein Urine Negative (Negative); Urobilinogen Urine 0.2 mg/dL (0.2-1.0); pH Urine 5.5 (5.0-8.0)
[2023-08-19 16:35] LABS: Basophils Absolute Auto 0.04 K/mm3 (0.00-0.10); Basophils Percent Auto 0.4 % (0.0-1.0); Eosinophils Absolute Auto 0.07 K/mm3 (0.02-0.50); Eosinophils Percent Auto 0.7 % (1.0-6.0); Hematocrit 42.8 % (35.0-42.0); Hemoglobin 13.2 g/dL (11.7-13.8); Immature Granulocyte Absolute 0.05 K/mm3 (0.00-0.00); Immature Granulocyte Percent A 0.5 % (0.0-0.0); Immature Platelet Fraction Pct 7.2 % (1.0-7.0); Lymphocytes Absolute Auto 4.58 K/mm3 (1.10-4.50); Lymphocytes Percent Auto 44.6 % (18.0-42.0); Mean Corpuscular HGB Conc 30.8 g/dL (32.0-36.0); Mean Corpuscular Hemoglobin 26.4 pg (27.0-31.0); Mean Corpuscular Volume 85.6 fL (78.0-102.0); Mean Platelet Volume 11.7 fl (9.2-11.8); Monocytes Absolute Auto 0.47 K/mm3 (0.10-0.90); Monocytes Percent Auto 4.6 % (2.0-11.0); Neutrophils Absolute Auto 5.1 K/mm3 (1.7-7.2); Neutrophils Percent Auto 49.2 % (50.0-70.0); Platelet Count Result 174 K/mm3 (150-420); Red Cell Distribution Width 14.2 % (11.6-14.4); White Blood Count 10.3 K/mm3 (4.8-10.8)
[2023-08-19 16:46] LABS: Add Urine Microscopic? NO
[2023-08-19 18:40] LABS: Alanine Aminotransferase 14 U/L (14-59); Alkaline Phosphatase 141 U/L (46-116); Anion Gap 15 mmol/L (8-16); Aspartate Amino Transferase < 10 U/L (15-37); Bilirubin,Total 0.4 mg/dL (0.00-1.00); Blood Urea Nitrogen 50 mg/dL (7-18); Calcium 9.7 mg/dL (8.5-10.1); Carbon Dioxide 27 mmol/L (21-32); Chloride 95 mmol/L (98-108); Cholesterol 173 mg/dL (0-200); Estimated Glomerular Filt Rate 37; Glucose 329 mg/dL (70-99); HDL Direct 26 mg/dL (40-60); Iron 22 ug/dL (50-170); LDL Cholesterol Calculated 104 mg/dL (<130); Magnesium 2.4 mg/dL (1.8-2.4); Osmolality Calculated 310 mOsm/kg (285-295); Percent Iron Saturation 8 % (12-57); Potassium 5.3 mmol/L (3.5-5.1); Sodium 137 mmol/L (136-145); Total Protein 7.7 g/dL (6.4-8.2); Triglycerides 215 mg/dL (0-150); Vitamin B12 1148 pg/mL (193-986)
[2023-08-23 12:07] LABS: Vitamin D 25 Hydroxy 36 ng/mL (30-100)
== END 2023-08-19 16:23 | disposition home or self-care (01) ==
LOC: CHSLAB 16:23
PROVIDERS: PCP Nurse Practitioner Family; Visit Provider Nurse Practitioner Family
DX: E78.5 Hyperlipidemia, unspecified (principal); E11.69 Type 2 diabetes mellitus with other specified complication; E55.9 Vitamin D deficiency, unspecified; I10 Essential (primary) hypertension; R53.1 Weakness; D50.9 Iron deficiency anemia, unspecified; Z87.898 Personal history of other specified conditions
CPT/HCPCS: 36415; 80053; 80061; 81003; 82306; 82607; 83540; 83550; 83735; 85025; 85055

== ENCOUNTER 2023-08-21 10:33 | Emergency (ER) | payer MEDICARE, SELFPAY ==
[2023-08-21] VITALS (32 sets, daily range): BP systolic 113–145; BP diastolic 53–95; PULSE 92–131; RESP 13–26; TEMP 36.8; O2SAT 72–98
--- NOTE | ~2023-08-21 | CT_ITS ---
EXAMINATION: CT brain wo con DATE: 08/21/2023 11:58 INDICATION: Syncopal episode post fall one day prior TECHNIQUE: Computed tomography (CT) of the head was performed without intravenous contrast. Sagittal and coronal reconstructions were performed. The mA was adjusted according to patient size. Iterative reconstruction technique was employed. The dose-length product was 605.33 mGy-cm. COMPARISON: head CT dated 02/09/2017 FINDINGS: No fracture. No acute intracranial hemorrhage, acute infarction or abnormal extra axial fluid collect ion. There is mild scattered white matter hypoattenuation consistent with chronic small vessel ischem ic disease. Symmetric prominence of the sulci consistent with moderate age-appropriate diffuse cereb ral volume loss. Ventricles are normal and symmetric. No mass/mass effect. Changes of bilateral intra ocular lens replacement. The orbits and mastoid air cells are normal. Dependently layering fluid in t he right sphenoid sinus. IMPRESSION: 1. Normal aging brain. No acute cranial process. 2. Dependently layering fluid in the right sphenoid sinus. Correlate clinically for acute sinusitis. Reviewed, dictated and finalized at location A. ING SPECIALIST
--- NOTE | ~2023-08-21 | XR_ITS ---
EXAMINATION: XR chest 1V portable 08/21/2023 10:58 INDICATION: Elevated glucose PROCEDURE: AP portable chest COMPARISON: Comparison to multiple prior studies sequentially, with oldest reviewed study dated 02/09. FINDINGS: The lungs are clear. The cardiomediastinal silhouette is within normal limits. There are no pleural effusions. There is no pneumothorax suspected. There is a side plate and screws transfix ing the left humerus proximally. IMPRESSION: 1: NO ACUTE CARDIOPULMONARY DISEASE. Reviewed, dictated and finalized at location L. CONTENT SPECIALIST
--- NOTE | 2023-08-21 10:43 | ECG_ITS ---
Measurements Intervals [place] Rate: 99 P: 64 VT: 136 QRS: 64 QRSD: 81 T: 86 QT: 317 QTc: 408 Interpretive Statements SINUS RHYTHM BORDERLINE T WAVE ABNORMALITY- HIGH LATERAL LEADS BORDERLINE ECG COMPARED TO ECG 08/14/2023 15:55:35 NO SIGNIFICANT CHANGES Electronically Signed On 08-21-2023 11:36:36 NUMBERER AND WIRER by Chidi Lewis D.O.
[2023-08-21 10:45] LABS: Glucose Point of Care > 450 mg/dl (65-105)
[2023-08-21 11:20] LABS: Hematocrit 39.9 % (35.0-42.0); Hemoglobin 12.2 g/dL (11.7-13.8); Mean Corpuscular HGB Conc 30.6 g/dL (32.0-36.0); Mean Corpuscular Hemoglobin 25.7 pg (27.0-31.0); Mean Platelet Volume 10.3 fl (9.2-11.8); Platelet Count Result 315 K/mm3 (150-420); Red Blood Count 4.75 M/mm3 (4.20-5.40); Red Cell Distribution Width 14.3 % (11.6-14.4)
[2023-08-21 11:24] LABS: Carboxyhemoglobin 1.3 % (0-1.5); HCO3 ABG 18.6 mmol/L (23-29); Methemoglobin ABG 0.3 % (0-1.5); Oxygen Content ABG 17.1 %vol (16.0-22.0); Oxyhemoglobin 92.5 % (94-100); PCO2 ABG 33.7 mmHg (35-45); PO2 ABG 73.7 mmHg (75-85); Reduced Hemoglobin 5.9 % (0-1.5); Total Hemoglobin 13.1 g/dL (12.0-18.0); pH ABG 7.36 (7.35-7.45)
[2023-08-21] MEDS: SODIUM CHLORIDE 0.9% IV 1,000 ML 999 ML IV CONT ×3 (11:24→13:01)
[2023-08-21 11:25] LABS: Device ROOM AIR; Modified Allen's Test Pass; Site Drawn LEFT RADIAL
[2023-08-21] MEDS: ONDANSETRON INJ 4 MG/2 ML VIAL IV PUSH (11:26)
[2023-08-21 11:27] LABS: White Blood Count 21.5 K/mm3 (4.8-10.8)
[2023-08-21 11:41] LABS: Band Neutrophils Percent 0 % (0-6); Basophils Percent Manual 0 % (0-1); Eosinophils Percent Manual 0 % (1-6); Lymphocytes Absolute Manual 7.95 K/mm3 (1.1-4.5); Lymphocytes Percent Manual 37 % (18-44); Monocytes Absolute Manual 0.86 K/mm3 (0.1-0.90); Monocytes Percent Manual 4 % (3-9); Neutrophils Absolute Manual 12.68 K/mm3 (1.7-7.2); Neutrophils Percent Manual 59 % (46-73); Platelet Estimate Adequate (Adequate); Total Cells Counted 100
[2023-08-21 11:42] LABS: Appearance Urine Clear (Clear); Bilirubin Urine Negative (Negative); Blood Urine 1+ (Negative); Color Urine Light Yellow (Yellow); Glucose Urine UA 3+ (Negative); Ketones Urine 1+ (Negative); Leukocyte Esterase Ur Negative LEU/UL (Negative); Nitrate Urine Negative (Negative); Protein Urine Negative (Negative); Specific Grav Ur <= 1.005 (1.010-1.020); Urobilinogen Urine 0.2 mg/dL (0.2-1.0); pH Urine 5.5 (5.0-8.0)
[2023-08-21 11:45] LABS: Add Urine Microscopic? YES; Bacteria Urine Trace /hpf; Squamous Epithelial Cell Urine Rare /hpf (Few); WBC Urine None seen /hpf (0-3)
[2023-08-21 11:49] LABS: Alanine Aminotransferase 31 U/L (14-59); Alkaline Phosphatase 154 U/L (46-116); Anion Gap 19 mmol/L (8-16); Aspartate Amino Transferase 21 U/L (15-37); Bilirubin,Total 0.7 mg/dL (0.00-1.00); Blood Urea Nitrogen 94 mg/dL (7-18); CRP 5.9 mg/dL (0.0-0.9); Calcium 10.4 mg/dL (8.5-10.1); Carbon Dioxide 22 mmol/L (21-32); Chloride 91 mmol/L (98-108); Estimated CRCL calculation 17 ml/min; Estimated Glomerular Filt Rate 27; Magnesium 2.7 mg/dL (1.8-2.4); Phosphorus 6.5 mg/dL (2.6-4.7); Sodium 132 mmol/L (136-145); Total Protein 8.1 g/dL (6.4-8.2)
[2023-08-21 11:51] LABS: Troponin I 18.2 ng/L (0.00-60.4)
[2023-08-21 11:51] LABS: Creatine Kinase 346 U/L (26-192)
[2023-08-21 11:52] LABS: Potassium 7.1 mmol/L (3.5-5.1)
[2023-08-21 11:53] LABS: Glucose > 800 mg/dL (70-99); Osmolality Calculated 342 mOsm/kg (285-295)
[2023-08-21 11:57] LABS: SARS-CoV-2 RNA PCR Negative (Negative)
[2023-08-21 11:58] LABS: Influenza A QL RT-PCR Negative (Negative); Influenza B QL RT-PCR Negative (Negative); RSV RNA, RT-PCR Negative (Negative)
[2023-08-21] MEDS: INSULIN HUMAN REGULAR (*BKC) 1,000 UNITS/10 ML VIAL 9 UNITS IV PUSH (12:10)
[2023-08-21 12:49] LABS: Glucose Point of Care > 450 mg/dl (65-105)
[2023-08-21] MEDS: INSULIN REG 100 UNITS/100 ML 100 UNITS/100 ML BAG 5.94 UNITS IV CONT (13:06)
--- NOTE | 2023-08-21 13:21 | ED.SYNCOPE ---
HPI - Syncope General Chief Complaint: Syncope Stated Complaint: high blood sugar; vomiting Time Seen by Provider: 08/21/23 10:38 Source: patient and family Mode of arrival: wheelchair History of Present Illness HPI narrative: this is a 77 year female with history diabetes on insulin and sliding scale of insulin per her primary, so history of chronic disease and hypothyroidism. Patient has been having issues controlling blood sugars, and apparently has had a fall and was found passed out approximately a couple of hours by family. Patient denies any injuries no head injury and no other injuries noted has good range of motion and lower extremities arms and neck area. Patient had a blood glucose checked and red over 450. Patient has dry and otherwise no chest pain no abdominal pain no shortness breath no fever chills. MD complaint: loss of consciousness Related Data Home Medications Medication Instructions Recorded Confirmed diolstvk-hda-oupjj acid 0.4 1 tablet PO DAILY 06/04/19 08/19/23 mg-lycopene 300 mcg-lutein 250 mcg tablet (Centrum Silver) lisinopril 10 mg tablet 10 mg PO DAILY 04/03/23 08/19/23 Allergies Allergy/AdvReac Type Severity Reaction Status Date / Time No Known Allergies Allergy Verified 08/19/23 15:02 Review of Systems Review of Systems: All systems reviewed & are unremarkable except as noted in HPI and below PMFSH Past Medical History Medical History (Updated 08/21/23 @ 13:27 by Griffin Wu MD) Acute pain of left knee GERD without esophagitis Hyperlipidemia associated with type 2 diabetes mellitus Hypothyroidism Kidney disease Rheumatoid arthritis Type 2 diabetes mellitus Vision loss Vitamin D deficiency Surgical History Surgical History H/O right nephrectomy H/O total thyroidectomy History of appendectomy History of rotator cuff surgery Hx of cholecystectomy Hx of tonsillectomy Status post total knee replacement, left Family History Family History Father No problems noted. Mother , mother of Alzheimer's Diabetes mellitus Family history of arthritis Other Cancer Social History Social History Social History: Patient designates daughter Allyson as MDM. Patient has been seeing Dr. Melendez as PCP but will see whomever is taking over the practice. Smoking status: Never smoker Second hand tobacco smoke exposure: No Alcohol intake: never Substance use: never Substance use type: does not use Lack of Transportation: YES Lack of Food: Never True Current Housing: I Do Not Have Housing Concerned About Future Housing: No Difficulty Paying Gas/Electric Bills: No Difficulty Paying for Meds: No Currently Unemployed: No Education: High School Diploma/GED Difficulty w/ Childcare or Family Care: No Occupation/Education: retired Gender identity (if verbalized by the patient): Female Spiritual care concerns: No Exam Const: General: no acute distress and ill appearing Limitations: no limitations and physical limitations HENMT: Head: normal to inspection Eyes: Conjunctivae: conjunctivae normal Pupils: Equal, round and reactive pupils present EOM: EOMs intact bilaterally Neck: Neck: normal visual inspection, no lymphadenopathy and no meningeal signs Chest: Chest palpation & inspection: normal inspection of the chest Resp: Effort & Inspection: normal respiratory effort Auscultation: clear to auscultation bilaterally Cardio: Rate: regular rate Rhythm: regular rhythm GI: Auscultation: normal bowel sounds : General: Yes bladder normal to palpation Skin: General skin exam: normal color Rashes: no rashes Wounds: no wounds Neuro: General: moves all extremities, no meningeal signs and no focal motor deficits Cranial nerves: Yes Nystagmus not
[2023-08-21] MEDS: PIPERACILLN/TAZ 3.375GM/NS50ML 3.375 GM/50 ML BAG IVPB (13:54)
[2023-08-21 14:15] LABS: Glucose Point of Care 391 mg/dl (65-105)
[2023-08-21 14:30] LABS: Alanine Aminotransferase 30 U/L (14-59); Albumin Level 3.1 g/dL (3.4-5.0); Alkaline Phosphatase 121 U/L (46-116); Anion Gap 16 mmol/L (8-16); Aspartate Amino Transferase 19 U/L (15-37); Bilirubin,Total 0.4 mg/dL (0.00-1.00); Blood Urea Nitrogen 75 mg/dL (7-18); Calcium 8.7 mg/dL (8.5-10.1); Carbon Dioxide 21 mmol/L (21-32); Chloride 106 mmol/L (98-108); Estimated CRCL calculation 22 ml/min; Estimated Glomerular Filt Rate 35; Glucose 375 mg/dL (70-99); Osmolality Calculated 333 mOsm/kg (285-295); Potassium 5.6 mmol/L (3.5-5.1); Sodium 143 mmol/L (136-145); Total Protein 6.6 g/dL (6.4-8.2)
[2023-08-21 16:10] LABS: Glucose Point of Care 347 mg/dl (65-105)
--- NOTE | 2023-08-27 14:09 | PC.NURSE ---
FINAL BLOOD CULTURE RESULTS X2: NO GROWTH AFTER 5 DAYS. NO ACTION NEEDED
== END 2023-08-21 15:24 | disposition short-term general hospital (02) ==
PROVIDERS: Emergency Provider Emergency Medicine; PCP Nurse Practitioner Family
DX: E87.5 Hyperkalemia (principal); E11.10 Type 2 diabetes mellitus with ketoacidosis without coma; E03.9 Hypothyroidism, unspecified; E78.5 Hyperlipidemia, unspecified; M06.9 Rheumatoid arthritis, unspecified; Z20.822 Contact with and (suspected) exposure to COVID-19; Z79.4 Long term (current) use of insulin; Z79.899 Other long term (current) drug therapy; W19.XXXA Unspecified fall, initial encounter
CPT/HCPCS: 36415; 36600; 70450; 71045; 80053; 81001; 82375; 82550; 82805; 82948; 83050; 83605; 83735; 84100; 84484; 85025; 86140; 87040; 87637; 93005; 96361; 96365; 96366; 96367; 96375; 96376; 99285; J1815; J2405; J2543; J7030

== ENCOUNTER 2023-08-21 19:58 | Inpatient (IN) | payer MEDICARE, SELFPAY ==
[2023-08-21 16:00] VITALS: BP 113/54; PULSE 100; PULSE 99; RESP 18; TEMP 37; O2SAT 95; O2SAT 98
--- NOTE | 2023-08-21 16:00 | PC.NURSE ---
This patient, Megan Rueda, was admitted to Intensive Care Unit-3. Patient/family oriented to hospital policies and general routines including ID bracelet, bed and alarms, visiting hours, pain management, procedures, bathroom and other care routines, personal items, smoking policy, room service/diet, and visiting hours. Information on how to activate the Rapid Response Team has been discussed. Patient/Family are encouraged to report perceived risks to care and to ask questions if they do not understand what they are told or what they should do.
[2023-08-21 16:26] VITALS: BMI 25.3
--- NOTE | 2023-08-21 16:38 | PM.IMHP ---
H&P: HPI History of Present Illness Date/Time: 08/21/23 16:38 Chief Complaint: Fatigue, Fall, Hyperglycemia Narrative: 77 y/o F presents here with fatigued, ground level fall, and hyperglycemia with PMH of DM 2, GERD, HLD, hypothyroidism, kidney disease, RA, and vitamin-D deficiency. dementia, anxiety, depression, insomnia?? Patient presents here today with fatigue and ground level fall. Fatigue has been present for the past month. +tremor to BUE that does not worsen with extension. +Intermittent lightheadedness/palpitations, polydipsia, and polyuria for the past 1-2 weeks. Lightheadedness not associated with position changes. No dizziness, blurred or double vision, altered gait. Sustained a ground-level fall last night, unclear cause, denies LOC. Remembers falling onto knees, then left elbow, and then into seated position. Laid down, did not have cell phone to call for assistance. Per daughter, she was able to call her granddaughter this morning. But then was found laying on her back this morning when her family came by to give her the morning medications. Has been able to ambulate since fall, uses cane. Takes Tresiba 10 units nightly and Humalog TIDWM. Has been compliant per daughter, daughter or granddaughters administer medications. Currently lives at home alone. Currently patient's daughter, Mica, has been primary caregiver due to proximity. No diarrhea, fever, or chills. Denies SOB or CP. Initial VS: afebrile, HR 131, RR 20, 95% on room air, BP 122/85. ED workup today (08/21) showed leukocytosis with white count of 21.5, hemoglobin of 12.2, sodium of 132, potassium of 7.1 creatinine of 1.8, glucose >800, calculated osmolality 342, calcium 10.4, phos 6.5, Mag 2.7, CK 346, CRP 5.9, albumin 4.0, and viral PCR negative. CXR did not show any acute cardiopulmonary disease. Head CT showed normal aging brain, no acute cranial process, dependently layering fluid in the right sphenoid sinus (correlate with acute sinusitis). Patient was seen on 08/14 with generalized weakness and glucose >800, given 9 units of regular insulin and then 10 units regular insulin, subsequently discharged. Patient followed up with her PCP on 08/19 and glucose was 319, A1C 11.2%. Patient reported then that her daily glucose measurements have been ranging from 300-600 (fasting glucose levels), frequently forgets to check more than once per day. Per daughter, Katty, patient has only been eating once daily and has been receiving her medications. Has been able to afford Humalog and Tresiba, could not previously afford Farxiga and Jardiance due to cost. Apparent discrepancy in story provided by patient and history provided by daughter. Concern for worsening dementia and family currently working on placement with a family member for closer monitoring. [facility] Past Medical History Medical History (Updated 08/21/23 @ 17:16 by Char Monk APRN) Acute pain of left knee CKD (chronic kidney disease) Dementia GERD without esophagitis HTN (hypertension) Hyperlipidemia associated with type 2 diabetes mellitus Hypothyroidism Insomnia Iron deficiency anemia Kidney disease Memory changes Rheumatoid arthritis Type 2 diabetes mellitus Vision loss Vitamin D deficiency Surgical History Surgical History (Updated 08/21/23 @ 17:15 by Char Monk APRN) H/O right nephrectomy H/O total thyroidectomy History of appendectomy History of rotator cuff surgery Hx of cholecystectomy Hx of tonsillectomy Status post total knee replacement, left Family History Family History Father No problems noted. Mother , mother of Alzheimer's Diabetes mellitus Family history of arthritis Other Cancer Social History Social History Social History: Patient designates daughter Allyson as MDM. Patient has been seeing Dr. Melendez as PCP but will see whomever is taking
[2023-08-21] MEDS: SODIUM CHLORIDE 0.9% IV 1,000 ML 150 ML IV CONT (16:59)
[2023-08-21 17:00] LABS: Glucose Point of Care 287 mg/dl (65-105)
[2023-08-21] MEDS: INSULIN HUMAN REGULAR (*BKC) 100 UNITS in SODIUM CHLORIDE 0.9% IV 99 ML 6 UNITS IV CONT (17:14)
[2023-08-21 17:25] LABS: Beta-Hydroxybutyrate/Acetoacetate 1.01 mmol/L (0.02-0.27)
[2023-08-21 17:26] LABS: Appearance Urine Clear (Clear); Bacteria Urine None Seen /hpf; Bilirubin Urine Negative (Negative); Blood Urine Trace (Negative); Color Urine Yellow (Yellow); Glucose Urine UA 3+ mg/dL (Negative); Ketones Urine Trace mg/dL (Negative); Leukocyte Esterase Ur Negative LEU/UL (NEGATIVE); Nitrate Urine Negative (Negative); Non Pathogenic Casts 0-2; Protein Urine Trace mg/dL (Negative); RBC Urine 0-2 /hpf (0-2); Specific Grav Ur 1.023 (1.001-1.035); Squamous Epithelial Cell Urine None seen /hpf (Few); Urobilinogen Urine 0.2 mg/dL (<2.0); WBC Urine 0-5 /hpf (0-3)
[2023-08-21 17:28] LABS: Add Urine Microscopic? YES
[2023-08-21 17:34] LABS: Anion Gap 10 mmol/L (8-16); Blood Urea Nitrogen 74 mg/dL (7-17); Calcium 9.2 mg/dL (8.4-10.2); Carbon Dioxide 22 mmol/L (22-30); Chloride 109 mmol/L (98-107); Estimated CRCL calculation 30 ml/min; Estimated Glomerular Filt Rate 53; Glucose 289 mg/dL (65-110); Magnesium 2.4 mg/dL (1.6-2.3); Phosphorus 4.1 mg/dL (2.5-4.5); Potassium 5.7 mmol/L (3.4-5.0); Sodium 141 mmol/L (137-145)
[2023-08-21 17:39] LABS: Troponin I 0.017 ng/mL (0.000-0.034)
[2023-08-21 18:00] VITALS: BP 113/50; PULSE 93; PULSE 94; RESP 20; O2SAT 96
[2023-08-21 18:11] LABS: Glucose Point of Care 269 mg/dl (65-105)
[2023-08-21 18:52] LABS: Hemoglobin A1C > 14.0 % (<5.7)
[2023-08-21 19:10] LABS: Glucose Point of Care 260 mg/dl (65-105)
[2023-08-21 20:00] VITALS: BP 102/49; PULSE 84; RESP 25; TEMP 37; O2SAT 93
[2023-08-21] MEDS: DEXTROSE 5%/0.45% SOD CHL 1,000 ML 150 ML IV CONT (20:52)
[2023-08-21] MEDS: traZODone HCL 50 MG TABLET 100 MG PO (20:53)
[2023-08-21 21:31] LABS: Glucose Point of Care 96 mg/dl (65-105)
[2023-08-21 21:39] VITALS: O2SAT 87
[2023-08-21 22:00] VITALS: BP 102/49; PULSE 85; RESP 24; O2SAT 96
[2023-08-21 22:18] LABS: Anion Gap 5 mmol/L (8-16); Blood Urea Nitrogen 63 mg/dL (7-17); Calcium 8.8 mg/dL (8.4-10.2); Carbon Dioxide 27 mmol/L (22-30); Chloride 110 mmol/L (98-107); Estimated CRCL calculation 30 ml/min; Estimated Glomerular Filt Rate 53; Glucose 110 mg/dL (65-110); Potassium 4.9 mmol/L (3.4-5.0); Sodium 142 mmol/L (137-145)
[2023-08-21] MEDS: INSULIN GLARGINE (*BKC) 100 UNITS/ML 15 UNITS SUB-Q (22:39)
[2023-08-22] VITALS (13 sets, daily range): BP systolic 102–161; BP diastolic 47–83; PULSE 73–98; RESP 15–20; TEMP 36.5–37.2; O2SAT 95–100; BMI 25.3
--- NOTE | 2023-08-22 | ECHO_ITS ---
Patient Info Name: Megan Rueda Age: 77 years : 1945 Gender: Female Ht: 61 in Wt: 134 lbs BSA: 1.63 m2 HR: 88 bpm BP: 127 / 83 mmHg Technical Quality: Fair Exam Date: 08/22/2023 12:50 PM Exam Location: Echo Lab Exam Room: 249 Patient Status: Inpatient Admit Date: 08/21/2023 Staff Ordering Physician: Char Monk APRN Summer Counselor: Dali Arreola RCS Attending Provider: Arley Mcarthur MD Referring Physician: Aleshia MALDONADO; Exam Type: CA echo doppler color flow Study Info Indications - murmur Complete two-dimensional, color flow and Doppler transthoracic echocardiogram is performed. Summary 1. Complete two-dimensional, color flow and Doppler transthoracic echocardiogram is performed. 2. Left ventricular chamber dimension is normal. 3. Left ventricular systolic function is normal, estimated at 65-70%. 4. The left ventricular diastolic function is grade I diastolic dysfunction. 5. E/e' 13 is mildly elevated. 6. No pulmonary hypertension, estimated pulmonary arterial systolic pressure is 31 mmHg. Left Ventricle E/e' 13 is mildly elevated. Left ventricular chamber dimension is normal. Left ventricular systolic function is normal, estimated at 65-70%. The left ventricular diastolic function is grade I diastolic dysfunction. Right Ventricle Right ventricular systolic function is normal and with normal TAPSE 2.3 cm. Right ventricular chamber dimension is normal. Left Atria Left atrial chamber dimension is normal. Right Atria Right atrial chamber dimension is normal. Aortic Valve The aortic valve is trileaflet. There is no aortic valve stenosis. There is no aortic valve regurgitation. Pulmonic Valve There is no pulmonic regurgitation. Mitral Valve There is no mitral valve stenosis. There is no mitral valve regurgitation. Tricuspid Valve There is no tricuspid valve regurgitation. No pulmonary hypertension, estimated pulmonary arterial systolic pressure is 31 mmHg. Pericardium/Pleural There is no pericardial effusion. Inferior Vena Cava Normal inferior vena cava with >50% collapse upon inspiration consistent with normal right atrial pressure, 5 mmHg. Aorta The aortic root size at the sinus of Valsalva is normal. Left Ventricular Outflow Tract Name Value Normal LVOT 2D LVOT Diameter 2.0 cm LVOT Doppler LVOT Peak Gradient 4 mmHg LVOT Mean Gradient 3 mmHg LVOT VTI 22 cm LVOT VTI/AV VTI Ratio 0.9 LVOT Stroke Volume 65 ml LVOT CO 16.0 l/min LVOT CI 9.8 l/min/m2 Pulmonic Valve Name Value Normal PV Doppler PV Peak Gradient 4 mmHg Mitral Valve Name Value Normal
[2023-08-22 00:02] LABS: Glucose Point of Care 74 mg/dl (65-105)
[2023-08-22 04:29] LABS: Basophils Percent Auto 0.2 % (0.2-1.2); Eosinophils Absolute Auto 0.1 K/mm3 (0-0.3); Eosinophils Percent Auto 1.1 % (0-4.4); Hematocrit 29.5 % (37.0-47.0); Hemoglobin 8.7 g/dL (12.0-15.0); Immature Granulocyte Absolute 0.03 K/mm3 (0.00-0.031); Immature Granulocyte Percent A 0.4 % (0-0.5); Lymphocytes Percent Auto 40.7 % (18.3-44.2); Mean Corpuscular HGB Conc 29.5 g/dl (32-36); Mean Corpuscular Hemoglobin 26.1 pg (26-34); Mean Corpuscular Volume 88.6 fl (80-100); Mean Platelet Volume 9.8 fl (7.4-10.4); Monocytes Absolute Auto 0.8 K/mm3 (0.1-0.6); Monocytes Percent Auto 9.6 % (2.6-8.5); Platelet Count Result 203 k/mm3 (150-375); Red Blood Count 3.33 M/mm3 (4.2-5.4); Red Cell Distribution Width 14.8 % (11.5-14.5); White Blood Count 8.4 K/mm3 (4.5-10.0)
[2023-08-22 04:38] LABS: Alanine Aminotransferase 24 U/L (6-35); Albumin Level 2.9 g/dL (3.5-5.1); Alkaline Phosphatase 79 U/L (38-126); Anion Gap 3 mmol/L (8-16); Aspartate Amino Transferase 30 U/L (14-36); Bilirubin,Total 0.5 mg/dL (0.2-1.3); Blood Urea Nitrogen 59 mg/dL (7-17); Calcium 8.4 mg/dL (8.4-10.2); Carbon Dioxide 26 mmol/L (22-30); Chloride 111 mmol/L (98-107); Estimated CRCL calculation 30 ml/min; Estimated Glomerular Filt Rate 53; Glucose 191 mg/dL (65-110); Potassium 5.6 mmol/L (3.4-5.0); Sodium 140 mmol/L (137-145)
[2023-08-22 04:49] LABS: Anisocytosis 1+ (NORMAL); Helmet Cells 1+ (NORMAL); Hypochromasia 1+ (NORMAL); Ovalocytes 1+ (NORMAL); Platelet Estimate Adequate (Adequate); Poikilocytosis 1+ (NORMAL); Schistocytes None Seen (NORMAL)
--- NOTE | 2023-08-22 08:14 | WPDCNINT ---
Assessment and Plan Assessment and plan (1) Hyperosmolar hyperglycemic state (HHS): Code(s): E11.00 - Type 2 diabetes mellitus with hyperosmolarity without nonketotic hyperglycemic-hyperosmolar coma (NKHHC) Status: Acute Assessment and Plan: Patient presented to the [facility] ER with complains of generalized weakness, fall, nausea, vomiting, dehydration, generalized weakness, found to have blood sugars > 800, positive beta hydroxybutyrate, elevated anion gap. Was diagnosed with hyperosmolar hyperglycemic state, was given 3 L of IV fluids and started on insulin infusion and transferred to [facility] ICU for further management -patient was transition to long-acting insulin and sliding scale insulin overnight -continue diabetic diet -will have dietitian and parent educator evaluated -WBC count was 21.5 on admission, this morning it is 8.4, likely reactive (2) Diabetes mellitus: Qualifiers: Chronic kidney disease stage: stage 4 (severe) Diabetes mellitus complication detail: with chronic kidney disease Diabetes mellitus complication status: with kidney complications Diabetes mellitus nursing home insulin use: with extermination inspector use Diabetes mellitus type: type 2 Qualified Code(s): E11.22 - Type 2 diabetes mellitus with diabetic chronic kidney disease; N18.4 - Chronic kidney disease, stage 4 (severe); Z79.4 - intermediate card tender (current) use of insulin Code(s): E11.9 - Type 2 diabetes mellitus without complications Status: Acute Assessment and Plan: Hemoglobin A1c > 14.0 this admission -will increase Lantus -Continue Accu-Cheks and sliding scale insulin -patient takes mealtime Humalog 7 units which I will continue (3) Acute dehydration: Code(s): E86.0 - Dehydration Status: Acute Assessment and Plan: Acute dehydration likely related to elevated blood sugars, nausea, vomiting, decreased p.o. intake, -adequately rehydrated -continue to encourage oral fluid intake (4) Acute renal failure: Qualifiers: Acute renal failure type: unspecified Qualified Code(s): N17.9 - Acute kidney failure, unspecified Code(s): N17.9 - Acute kidney failure, unspecified Status: Acute Assessment and Plan: Acute kidney injury likely related to dehydration, hyperglycemic hyperosmolar state, decreased p.o. intake, nausea vomiting -creatinine was 1.82 on admission -patient has been adequately fluid-resuscitated -creatinine this morning is 1.0 (5) Hyperkalemia: Code(s): E87.5 - Hyperkalemia Status: Acute Assessment and Plan: Hyperkalemia likely related to anion gap metabolic acidosis, -resolved with insulin - patient does have some history of elevated potassium levels -will give a dose of Lokelma this morning (6) HTN (hypertension): Qualifiers: Hypertension type: unspecified Qualified Code(s): I10 - Essential (primary) hypertension Code(s): I10 - Essential (primary) hypertension Status: Acute Assessment and Plan: Patient patient has been restarted on her home antihypertensive medications Plan DVT prophylaxis: Lovenox Stress ulcer prophylaxis: Noted Nutrition: Diabetic diet Code Status: Full code Critical Care Time Spent: 46 minutes Patient may transfer out of the ICU Due to a high probability of clinically significant, life threatening deterioration, the patient required my highest level of preparedness to intervene emergently and I personally spent this critical care time directly and personally managing the patient. This critical care time included obtaining a history; examining the patient; pulse oximetry; ordering and review of studies; arranging urgent treatment with development of a management plan; evaluation of patient's response to treatment; frequent reassessment; and discussions with other providers. It was exclusive of separately billable procedures and treating other patients
[2023-08-22 08:32] LABS: Glucose Point of Care 207 mg/dl (65-105)
[2023-08-22] MEDS: MEMANTINE 10 MG TABLET PO (08:42)
[2023-08-22] MEDS: DULoxetine HCL 30 MG CAPSULE.DR PO (08:42)
[2023-08-22] MEDS: ENOXAPARIN 40 MG/0.4 ML SYRINGE SUB-Q (08:42)
[2023-08-22] MEDS: SODIUM ZIRCONIUM CYCLOSILICATE 10 GM POWD.PACK PO (08:42)
[2023-08-22] MEDS: lisinopriL 10 MG TABLET PO (08:42)
[2023-08-22] MEDS: INSULIN GLARGINE (*BKC) 100 UNITS/ML SUB-Q (08:45)
[2023-08-22] MEDS: INSULIN ASPART (*BKC) 100 UNITS/ML SUB-Q ×3 (08:46→20:03)
[2023-08-22] MEDS: INSULIN ASPART (*BKC) 100 UNITS/ML 7 UNITS SUB-Q ×2 (08:46→12:40)
--- NOTE | 2023-08-22 10:15 | PC.NURSE ---
This patient, Megan Rueda, was transferred to [[facility]] on 08/22/23 at 1015. Personal belongings sent with patient. Report given to [AmandaRN]. Appropriate documentation sent with patient.
--- NOTE | 2023-08-22 10:20 | PC.NURSE ---
This patient, Megan Rueda, was received from [[facility] ] on 08/22/23 at 1020. Patient/family oriented to unit policies and routines
[2023-08-22 12:06] LABS: Glucose Point of Care 241 mg/dl (65-105)
--- NOTE | 2023-08-22 12:11 | PM.IMPN ---
Progress Note: A&P Assessment and Plan (1) Hyperosmolar hyperglycemic state (HHS): Code(s): E11.00 - Type 2 diabetes mellitus with hyperosmolarity without nonketotic hyperglycemic-hyperosmolar coma (NKHHC) Status: Acute Assessment and Plan: Patient presented to the [facility] ER with complains of generalized weakness, fall, nausea, vomiting, dehydration, generalized weakness, found to have blood sugars > 800, positive beta hydroxybutyrate, elevated anion gap. Was diagnosed with hyperosmolar hyperglycemic state, was given 3 L of IV fluids and started on insulin infusion and transferred to [facility] ICU for further management -patient was transition to long-acting insulin and sliding scale insulin overnight -continue diabetic diet -will have dietitian and senior merchandiser evaluated -WBC count was 21.5 on admission, this morning it is 8.4, likely reactive 08/22/23: Improved metabolic profile; (2) Diabetes mellitus: Qualifiers: Chronic kidney disease stage: stage 4 (severe) Diabetes mellitus complication detail: with chronic kidney disease Diabetes mellitus complication status: with kidney complications Diabetes mellitus residential insulin use: with intermediate accountant use Diabetes mellitus type: type 2 Qualified Code(s): E11.22 - Type 2 diabetes mellitus with diabetic chronic kidney disease; N18.4 - Chronic kidney disease, stage 4 (severe); Z79.4 - [facility] (current) use of insulin Code(s): E11.9 - Type 2 diabetes mellitus without complications Status: Acute Assessment and Plan: Hemoglobin A1c > 14.0 this admission -will increase Lantus -Continue Accu-Cheks and sliding scale insulin -patient takes mealtime Humalog 7 units which I will continue 08/22/23: On Basal+correctional insulin (3) Acute dehydration: Code(s): E86.0 - Dehydration Status: Acute Assessment and Plan: Acute dehydration likely related to elevated blood sugars, nausea, vomiting, decreased p.o. intake, -adequately rehydrated -continue to encourage oral fluid intake 08/22/23: Optimize PO intake (4) Acute renal failure: Qualifiers: Acute renal failure type: unspecified Qualified Code(s): N17.9 - Acute kidney failure, unspecified Code(s): N17.9 - Acute kidney failure, unspecified Status: Acute Assessment and Plan: Acute kidney injury likely related to dehydration, hyperglycemic hyperosmolar state, decreased p.o. intake, nausea vomiting -creatinine was 1.82 on admission -patient has been adequately fluid-resuscitated -creatinine this morning is 1.0 08/22/23: Monitor renal function; avoid nephrotoxins (5) Hyperkalemia: Code(s): E87.5 - Hyperkalemia Status: Acute Assessment and Plan: Hyperkalemia likely related to anion gap metabolic acidosis, -resolved with insulin - patient does have some history of elevated potassium levels -will give a dose of Lokelma this morning 08/22/23: s/p Lokelma; on Insulin. Will monitor metabolic profile May need to hold Lisinopril if K rises further (6) HTN (hypertension): Qualifiers: Hypertension type: unspecified Qualified Code(s): I10 - Essential (primary) hypertension Code(s): I10 - Essential (primary) hypertension Status: Acute Assessment and Plan: Patient patient has been restarted on her home antihypertensive medications Resume Lisinopril; will need to hold if K rises again Plan Acute and principal conditions 1. DKA; Hx of IDDM. improved 2. Falls; Knee bruises; Physical deconditioning 3. Hyperkalemia. on LEA-i 4. Dehydration; Acute renal insufficiency. improving IVFs; Lokelma; Insulin Monitor K; may hold LEA-i if upward trending PT/OT eval and Rx; falls precautions Avoid nephrotoxins; encourage to optimize oral hydration Chronic and stable conditions 1. Hypertension. on Lisinopril 2. Recurrent depression. on Duloxetine 3. Cognitive impairment. o
[2023-08-22 17:09] LABS: Glucose Point of Care 98 mg/dl (65-105)
[2023-08-22] MEDS: INSULIN GLARGINE (*BKC) 100 UNITS/ML 20 UNITS SUB-Q (20:04)
[2023-08-22 20:18] LABS: Glucose Point of Care 312 mg/dl (65-105)
[2023-08-22 20:18] LABS: Glucose Point of Care 331 mg/dl (65-105)
[2023-08-22] MEDS: traZODone HCL 50 MG TABLET 100 MG PO (21:19)
[2023-08-23] VITALS (10 sets, daily range): BP systolic 114–167; BP diastolic 47–80; PULSE 64–93; RESP 16–18; TEMP 36.8–37.3; O2SAT 95–100
[2023-08-23 05:11] LABS: Basophils Percent Auto 0.3 % (0.2-1.2); Eosinophils Absolute Auto 0.1 K/mm3 (0-0.3); Eosinophils Percent Auto 1.3 % (0-4.4); Hematocrit 30.2 % (37.0-47.0); Hemoglobin 9.2 g/dL (12.0-15.0); Immature Granulocyte Absolute 0.03 K/mm3 (0.00-0.031); Immature Granulocyte Percent A 0.4 % (0-0.5); Lymphocytes Absolute Auto 4.22 K/mm3 (0.9-3.2); Lymphocytes Percent Auto 55.5 % (18.3-44.2); Mean Corpuscular HGB Conc 30.5 g/dl (32-36); Mean Corpuscular Hemoglobin 26.2 pg (26-34); Mean Platelet Volume 9.4 fl (7.4-10.4); Monocytes Absolute Auto 0.5 K/mm3 (0.1-0.6); Monocytes Percent Auto 7.1 % (2.6-8.5); Neutrophils Absolute Auto 2.7 K/mm3 (1.3-6.7); Neutrophils Percent Auto 35.4 % (45.5-73.1); Platelet Count Result 191 k/mm3 (150-375); Red Blood Count 3.51 M/mm3 (4.2-5.4); Red Cell Distribution Width 14.6 % (11.5-14.5); White Blood Count 7.6 K/mm3 (4.5-10.0)
[2023-08-23 05:25] LABS: Alanine Aminotransferase 27 U/L (6-35); Albumin Level 2.9 g/dL (3.5-5.1); Alkaline Phosphatase 87 U/L (38-126); Anion Gap 5 mmol/L (8-16); Aspartate Amino Transferase 28 U/L (14-36); Bilirubin,Total 0.5 mg/dL (0.2-1.3); Blood Urea Nitrogen 46 mg/dL (7-17); Calcium 8.6 mg/dL (8.4-10.2); Carbon Dioxide 27 mmol/L (22-30); Chloride 105 mmol/L (98-107); Estimated CRCL calculation 30 ml/min; Estimated Glomerular Filt Rate 53; Glucose 208 mg/dL (65-110); Potassium 4.9 mmol/L (3.4-5.0); Sodium 137 mmol/L (137-145)
[2023-08-23] MEDS: MEMANTINE 10 MG TABLET PO (09:11)
[2023-08-23] MEDS: lisinopriL 10 MG TABLET PO (09:11)
[2023-08-23] MEDS: DULoxetine HCL 30 MG CAPSULE.DR PO (09:11)
[2023-08-23] MEDS: ENOXAPARIN 40 MG/0.4 ML SYRINGE SUB-Q (09:11)
[2023-08-23 09:41] LABS: Glucose Point of Care 167 mg/dl (65-105)
[2023-08-23 11:51] LABS: Glucose Point of Care 457 mg/dl (65-105)
[2023-08-23 12:21] LABS: Glucose Point of Care 426 mg/dl (65-105)
[2023-08-23] MEDS: INSULIN ASPART (*BKC) 100 UNITS/ML SUB-Q ×2 (12:24→17:08)
[2023-08-23] MEDS: INSULIN ASPART (*BKC) 100 UNITS/ML 7 UNITS SUB-Q (12:24)
[2023-08-23] MEDS: BENZOCAINE/MENTHOL (*BKC) 18 EA LOZENGE 1 LOZENGE PO (14:32)
[2023-08-23 15:22] LABS: Glucose Point of Care 388 mg/dl (65-105)
--- NOTE | 2023-08-23 15:22 | PM.IMPN ---
Progress Note: A&P Assessment and Plan (1) Hyperosmolar hyperglycemic state (HHS): Code(s): E11.00 - Type 2 diabetes mellitus with hyperosmolarity without nonketotic hyperglycemic-hyperosmolar coma (NKHHC) Status: Acute Assessment and Plan: [facility] complains of generalized weakness, fall, nausea, vomiting, dehydration, generalized weakness, found to have blood sugars > 800, positive beta hydroxybutyrate, elevated anion gap. Was diagnosed with hyperosmolar hyperglycemic state, was given 3 L of IV fluids and started on insulin infusion and transferred to [facility] ICU for further management -patient was transition to long-acting insulin and sliding scale insulin overnight -continue diabetic diet -will have dietitian and frozen food department manager evaluated -WBC count was 21.5 on admission, downtrending to 8.4-7.6, likely reactive 08/22/23: Improved metabolic profile. No anion gap (2) Diabetes mellitus: Qualifiers: Chronic kidney disease stage: stage 4 (severe) Diabetes mellitus complication detail: with chronic kidney disease Diabetes mellitus complication status: with kidney complications Diabetes mellitus terminal worker insulin use: with terminal worker use Diabetes mellitus type: type 2 Qualified Code(s): E11.22 - Type 2 diabetes mellitus with diabetic chronic kidney disease; N18.4 - Chronic kidney disease, stage 4 (severe); Z79.4 - bed bug exterminator (current) use of insulin Code(s): E11.9 - Type 2 diabetes mellitus without complications Status: Acute Assessment and Plan: Hemoglobin A1c > 14.0 this admission -will increase Lantus -Continue Accu-Cheks and sliding scale insulin -patient still running blood sugars between 200s and 400s -patient takes mealtime Humalog 7 units which I will increase to 10 units 08/22/23: On Basal+correctional insulin ... Increased to high-dose as per protocol (3) Acute dehydration: Code(s): E86.0 - Dehydration Status: Acute Assessment and Plan: Acute dehydration likely related to elevated blood sugars, nausea, vomiting, decreased p.o. intake, -adequately rehydrated -continue to encourage oral fluid intake 08/22/23: Optimize PO intake (4) Acute renal failure: Qualifiers: Acute renal failure type: unspecified Qualified Code(s): N17.9 - Acute kidney failure, unspecified Code(s): N17.9 - Acute kidney failure, unspecified Status: Acute Assessment and Plan: Acute kidney injury likely related to dehydration, hyperglycemic hyperosmolar state, decreased p.o. intake, nausea vomiting -creatinine was 1.82 on admission -patient has been adequately fluid-resuscitated -creatinine this morning is 1.0 08/22/23: Monitor renal function; avoid nephrotoxins (5) Hyperkalemia: Code(s): E87.5 - Hyperkalemia Status: Acute Assessment and Plan: Hyperkalemia likely related to anion gap metabolic acidosis, -resolved with insulin - patient does have some history of elevated potassium levels -will give a dose of Lokelma this morning 08/22/23: s/p Lokelma; on Insulin. Will monitor metabolic profile May need to hold Lisinopril if K rises further (6) HTN (hypertension): Qualifiers: Hypertension type: unspecified Qualified Code(s): I10 - Essential (primary) hypertension Code(s): I10 - Essential (primary) hypertension Status: Acute Assessment and Plan: Patient patient has been restarted on her home antihypertensive medications Resume Lisinopril; will need to hold if K rises again Plan Acute and principal conditions 1. DKA; Hx of IDDM. improved 2. Falls; Knee bruises; Physical deconditioning 3. Hyperkalemia. on LEA-i 4. Dehydration; Acute renal insufficiency. improving IVFs; Lokelma; Insulin Monitor K; may hold LEA-i if upward trending PT/OT eval and Rx; falls precautions Avoid nephrotoxins; encourage to optimize oral hydration
[2023-08-23 16:47] LABS: Glucose Point of Care 261 mg/dl (65-105)
[2023-08-23] MEDS: INSULIN ASPART (*BKC) 100 UNITS/ML 10 UNITS SUB-Q (17:08)
[2023-08-23 21:16] LABS: Glucose Point of Care 133 mg/dl (65-105)
[2023-08-23] MEDS: traZODone HCL 50 MG TABLET 100 MG PO (22:05)
[2023-08-23] MEDS: INSULIN GLARGINE (*BKC) 100 UNITS/ML 20 UNITS SUB-Q (22:22)
[2023-08-24] VITALS (8 sets, daily range): BP systolic 112–142; BP diastolic 49–80; PULSE 74–108; RESP 16–18; TEMP 36.7–37; O2SAT 94–98
[2023-08-24 05:51] LABS: Basophils Percent Auto 0.5 % (0.2-1.2); Eosinophils Absolute Auto 0.1 K/mm3 (0-0.3); Eosinophils Percent Auto 1.4 % (0-4.4); Hemoglobin 9.6 g/dL (12.0-15.0); Immature Granulocyte Absolute 0.03 K/mm3 (0.00-0.031); Immature Granulocyte Percent A 0.5 % (0-0.5); Lymphocytes Absolute Auto 3.62 K/mm3 (0.9-3.2); Mean Corpuscular HGB Conc 29.1 g/dl (32-36); Mean Corpuscular Volume 89.4 fl (80-100); Monocytes Absolute Auto 0.5 K/mm3 (0.1-0.6); Monocytes Percent Auto 8.3 % (2.6-8.5); Neutrophils Absolute Auto 2.2 K/mm3 (1.3-6.7); Neutrophils Percent Auto 33.3 % (45.5-73.1); Platelet Count Result 184 k/mm3 (150-375); Red Blood Count 3.69 M/mm3 (4.2-5.4); Red Cell Distribution Width 14.5 % (11.5-14.5); White Blood Count 6.5 K/mm3 (4.5-10.0)
[2023-08-24 06:09] LABS: Alanine Aminotransferase 26 U/L (6-35); Albumin Level 3.3 g/dL (3.5-5.1); Alkaline Phosphatase 81 U/L (38-126); Anion Gap 6 mmol/L (8-16); Aspartate Amino Transferase 23 U/L (14-36); Bilirubin,Total 0.5 mg/dL (0.2-1.3); Blood Urea Nitrogen 41 mg/dL (7-17); Calcium 8.9 mg/dL (8.4-10.2); Carbon Dioxide 28 mmol/L (22-30); Chloride 105 mmol/L (98-107); Estimated CRCL calculation 28 ml/min; Estimated Glomerular Filt Rate 48; Glucose 161 mg/dL (65-110); Magnesium 2.4 mg/dL (1.6-2.3); Phosphorus 2.8 mg/dL (2.5-4.5); Potassium 5.1 mmol/L (3.4-5.0); Sodium 139 mmol/L (137-145)
[2023-08-24 08:27] LABS: Glucose Point of Care 170 mg/dl (65-105)
[2023-08-24] MEDS: MEMANTINE 10 MG TABLET PO (08:45)
[2023-08-24] MEDS: DULoxetine HCL 30 MG CAPSULE.DR PO (08:45)
[2023-08-24] MEDS: ENOXAPARIN 40 MG/0.4 ML SYRINGE SUB-Q (08:45)
[2023-08-24] MEDS: METOPROLOL TARTRATE 50 MG TAB PO (08:51)
[2023-08-24 11:56] LABS: Glucose Point of Care 423 mg/dl (65-105)
[2023-08-24] MEDS: INSULIN ASPART (*BKC) 100 UNITS/ML SUB-Q ×2 (12:20→17:24)
[2023-08-24] MEDS: INSULIN ASPART (*BKC) 100 UNITS/ML 10 UNITS SUB-Q ×2 (12:20→17:23)
--- NOTE | 2023-08-24 15:57 | PM.IMPN ---
Progress Note: A&P Assessment and Plan (1) Hyperosmolar hyperglycemic state (HHS): Code(s): E11.00 - Type 2 diabetes mellitus with hyperosmolarity without nonketotic hyperglycemic-hyperosmolar coma (NKHHC) Status: Acute Assessment and Plan: Patient presented to the [facility] ER with complains of generalized weakness, fall, nausea, vomiting, dehydration, generalized weakness, found to have blood sugars > 800, positive beta hydroxybutyrate, elevated anion gap. Was diagnosed with hyperosmolar hyperglycemic state, was given 3 L of IV fluids and started on insulin infusion and transferred to [facility] ICU for further management -patient was transition to long-acting insulin and sliding scale insulin overnight -continue diabetic diet -will have dietitian and hospital educator evaluated -WBC count was 21.5 on admission, downtrending to 8.4-7.6, likely reactive 08/22/23: Improved metabolic profile. No anion gap 08/24/2023: Potassium level is 5.1. Switched blood pressure med from lisinopril to metoprolol. No added potassium (2) Diabetes mellitus: Qualifiers: Chronic kidney disease stage: stage 4 (severe) Diabetes mellitus complication detail: with chronic kidney disease Diabetes mellitus complication status: with kidney complications Diabetes mellitus custodial insulin use: with terminal manager use Diabetes mellitus type: type 2 Qualified Code(s): E11.22 - Type 2 diabetes mellitus with diabetic chronic kidney disease; N18.4 - Chronic kidney disease, stage 4 (severe); Z79.4 - nursing home (current) use of insulin Code(s): E11.9 - Type 2 diabetes mellitus without complications Status: Acute Assessment and Plan: Hemoglobin A1c > 14.0 this admission -will increase Lantus -Continue Accu-Cheks and sliding scale insulin -patient still running blood sugars between 200s and 400s -patient takes mealtime Humalog 7 units which I will increase to 10 units 08/22/23: On Basal+correctional insulin ... Increased to high-dose as per protocol (3) Acute dehydration: Code(s): E86.0 - Dehydration Status: Acute Assessment and Plan: Acute dehydration likely related to elevated blood sugars, nausea, vomiting, decreased p.o. intake, -adequately rehydrated -continue to encourage oral fluid intake 08/22/23: Optimize PO intake (4) Acute renal failure: Qualifiers: Acute renal failure type: unspecified Qualified Code(s): N17.9 - Acute kidney failure, unspecified Code(s): N17.9 - Acute kidney failure, unspecified Status: Acute Assessment and Plan: Acute kidney injury likely related to dehydration, hyperglycemic hyperosmolar state, decreased p.o. intake, nausea vomiting -creatinine was 1.82 on admission -patient has been adequately fluid-resuscitated -creatinine this morning is 1.0 08/22/23: Monitor renal function; avoid nephrotoxins (5) Hyperkalemia: Code(s): E87.5 - Hyperkalemia Status: Acute Assessment and Plan: Hyperkalemia likely related to anion gap metabolic acidosis, -resolved with insulin - patient does have some history of elevated potassium levels -will give a dose of Lokelma this morning 08/22/23: s/p Lokelma; on Insulin. Will monitor metabolic profile 08/24/2023: DC lisinopril. Started oral metoprolol for blood pressure control. (6) HTN (hypertension): Qualifiers: Hypertension type: unspecified Qualified Code(s): I10 - Essential (primary) hypertension Code(s): I10 - Essential (primary) hypertension Status: Acute Assessment and Plan: Patient patient has been restarted on her home antihypertensive medications 08/24/2023: DC lisinopril due to hyperkalemia. Started oral metoprolol for blood pressure control. Plan Acute and principal conditions 1. DKA; Hx of IDDM. improved 2. Falls; Knee bruises; Physical deconditioning 3. Hyperkalemia. on LEA-i 4. Dehydration;
[2023-08-24 17:23] LABS: Glucose Point of Care 204 mg/dl (65-105)
[2023-08-24] MEDS: INSULIN GLARGINE (*BKC) 100 UNITS/ML 20 UNITS SUB-Q (20:42)
[2023-08-24] MEDS: traZODone HCL 50 MG TABLET 100 MG PO (20:44)
[2023-08-24 21:02] LABS: Glucose Point of Care 134 mg/dl (65-105)
[2023-08-25 05:46] VITALS: BP 144/62; PULSE 80; RESP 18; TEMP 36.7; O2SAT 97
[2023-08-25 06:09] LABS: Basophils Percent Auto 0.5 % (0.2-1.2); Eosinophils Absolute Auto 0.1 K/mm3 (0-0.3); Eosinophils Percent Auto 1.2 % (0-4.4); Hematocrit 31.8 % (37.0-47.0); Hemoglobin 9.7 g/dL (12.0-15.0); Immature Granulocyte Absolute 0.02 K/mm3 (0.00-0.031); Immature Granulocyte Percent A 0.3 % (0-0.5); Lymphocytes Absolute Auto 3.66 K/mm3 (0.9-3.2); Lymphocytes Percent Auto 56.6 % (18.3-44.2); Mean Corpuscular HGB Conc 30.5 g/dl (32-36); Mean Corpuscular Hemoglobin 26.4 pg (26-34); Mean Corpuscular Volume 86.4 fl (80-100); Mean Platelet Volume 9.6 fl (7.4-10.4); Monocytes Absolute Auto 0.4 K/mm3 (0.1-0.6); Monocytes Percent Auto 6.8 % (2.6-8.5); Neutrophils Absolute Auto 2.2 K/mm3 (1.3-6.7); Neutrophils Percent Auto 34.6 % (45.5-73.1); Platelet Count Result 177 k/mm3 (150-375); Red Blood Count 3.68 M/mm3 (4.2-5.4); Red Cell Distribution Width 14.2 % (11.5-14.5); White Blood Count 6.5 K/mm3 (4.5-10.0)
[2023-08-25 06:29] LABS: Alanine Aminotransferase 24 U/L (6-35); Albumin Level 3.3 g/dL (3.5-5.1); Alkaline Phosphatase 80 U/L (38-126); Anion Gap 4 mmol/L (8-16); Aspartate Amino Transferase 22 U/L (14-36); Bilirubin,Total 0.5 mg/dL (0.2-1.3); Blood Urea Nitrogen 39 mg/dL (7-17); Carbon Dioxide 27 mmol/L (22-30); Chloride 105 mmol/L (98-107); Estimated CRCL calculation 28 ml/min; Estimated Glomerular Filt Rate 48; Glucose 139 mg/dL (65-110); Potassium 4.4 mmol/L (3.4-5.0); Sodium 136 mmol/L (137-145)
[2023-08-25 08:05] LABS: Glucose Point of Care 157 mg/dl (65-105)
[2023-08-25] MEDS: SODIUM CHLORIDE 0.9% IV 1,000 ML 100 ML IV CONT (08:34)
[2023-08-25] MEDS: MEMANTINE 10 MG TABLET PO (08:34)
[2023-08-25] MEDS: DULoxetine HCL 30 MG CAPSULE.DR PO (08:34)
[2023-08-25] MEDS: METOPROLOL TARTRATE 50 MG TAB PO (08:34)
[2023-08-25] MEDS: ENOXAPARIN 40 MG/0.4 ML SYRINGE SUB-Q (08:36)
[2023-08-25 11:59] LABS: Glucose Point of Care 423 mg/dl (65-105)
[2023-08-25] MEDS: INSULIN ASPART (*BKC) 100 UNITS/ML SUB-Q (12:08)
[2023-08-25] MEDS: INSULIN ASPART (*BKC) 100 UNITS/ML 10 UNITS SUB-Q (12:08)
[2023-08-25] MEDS: ACETAMINOPHEN 325 MG TABLET 650 MG PO (12:12)
--- NOTE | 2023-08-25 13:32 | PM.DS ---
DS: Admitting Diagnosis Discharge Date 08/25/2023: Admitting Diagnosis Hyperosmolar hyperglycemic State Hyperkalemia DS: Discharge Diagnosis Discharge Diagnosis (1) Hyperosmolar hyperglycemic state (HHS): Code(s): E11.00 - Type 2 diabetes mellitus with hyperosmolarity without nonketotic hyperglycemic-hyperosmolar coma (NKHHC) Status: Acute (2) Ground-level fall: Code(s): W18.30XA - Fall on same level, unspecified, initial encounter Status: Acute (3) HTN (hypertension): Qualifiers: Hypertension type: unspecified Qualified Code(s): I10 - Essential (primary) hypertension Code(s): I10 - Essential (primary) hypertension Status: Acute (4) CKD (chronic kidney disease): Qualifiers: Chronic kidney disease stage: unspecified stage Qualified Code(s): N18.9 - Chronic kidney disease, unspecified Code(s): N18.9 - Chronic kidney disease, unspecified Status: Acute (5) Weakness: Code(s): R53.1 - Weakness Status: Acute (6) Anemia: Qualifiers: Anemia type: unspecified type Qualified Code(s): D64.9 - Anemia, unspecified Code(s): D64.9 - Anemia, unspecified Status: Acute (7) Hyperkalemia: Code(s): E87.5 - Hyperkalemia Status: Acute (8) Hyperlipidemia associated with type 2 diabetes mellitus: Code(s): E11.69 - Type 2 diabetes mellitus with other specified complication; E78.5 - Hyperlipidemia, unspecified Status: Acute (9) Uncontrolled diabetes mellitus: Status: Acute (10) Personal history of noncompliance with medical treatment and regimen: Code(s): Z91.199 - Patient's noncompliance with other medical treatment and regimen due to unspecified reason Status: Acute DS: Summary Hospital Course Reason for hospitalization: Patient admitted with fatigue, hyperglycemia and ground level fall Hospital Course: H&P: HPI History of Present Illness Date/Time: 08/21/23? 16:38 Chief Complaint: Fatigue, Fall, Hyperglycemia Narrative: 77 y/o F presents here with? fatigued, ground level fall, and hyperglycemia with PMH of DM 2, GERD, HLD, hypothyroidism, kidney disease, RA, and vitamin-D deficiency.? dementia, anxiety, depression,? insomnia?? Patient presents here today with fatigue and ground level fall. Fatigue has been present for the past month. +tremor to BUE that does not worsen with extension. +Intermittent lightheadedness/palpitations, polydipsia, and polyuria for the past 1-2 weeks. Lightheadedness not associated with position changes. No dizziness, blurred or double vision, altered gait. Sustained a ground-level fall last night, unclear cause, denies LOC. Remembers falling onto knees, then left elbow, and then into seated position. Laid down, did not have cell phone to call for assistance. Per daughter, she was able to call her granddaughter this morning. But then was found laying on her back this morning when her family came by to give her the morning medications. Has been able to ambulate since fall, uses cane. Takes Tresiba 10 units nightly and Humalog TIDWM. Has been compliant per daughter, daughter or granddaughters administer medications. Currently lives at home alone. Currently patient's daughter, Mica, has been primary caregiver due to proximity. No diarrhea, fever, or chills. Denies SOB or CP. Initial VS: afebrile, HR 131, RR 20, 95% on room air, BP 122/85. ED workup today (08/21) showed leukocytosis with white count of 21.5, hemoglobin of 12.2, sodium of 132, potassium of 7.1 creatinine of 1.8, glucose >800,? calculated osmolality 342, calcium 10.4, phos 6.5, Mag 2.7, CK 346, CRP 5.9, albumin 4.0, and viral PCR negative.? CXR did not show any acute cardiopulmonary disease.? Head CT showed normal aging brain, no acute cranial process, dependently layering fluid in the right sphenoid sinus (correlate with acute sinusitis). Patient was seen on 08/14 with generalized weakness and glucose >800,
[2023-08-25 14:50] VITALS: BP 135/51; PULSE 81; RESP 17; TEMP 36.8; O2SAT 96
== END 2023-08-25 16:35 | disposition home or self-care (01) | DRG 638 ==
LOC: ANH2MED 08-25 14:07 → ANHICU 08-27 11:56
PROVIDERS: Internal Medicine; Student in an Organized Health Care Education/Training Program; Admitting Provider General Practice; PCP Nurse Practitioner Family; Visit Provider Family Medicine
DX: E11.00 Type 2 diabetes mellitus with hyperosmolarity without nonketotic hyperglycemic-hyperosmolar coma (NKHHC) (principal); N17.9 Acute kidney failure, unspecified; N18.4 Chronic kidney disease, stage 4 (severe); E11.10 Type 2 diabetes mellitus with ketoacidosis without coma; E11.22 Type 2 diabetes mellitus with diabetic chronic kidney disease; I12.9 Hypertensive chronic kidney disease with stage 1 through stage 4 chronic kidney disease, or unspecified chronic kidney disease; E86.0 Dehydration; E87.5 Hyperkalemia; E78.5 Hyperlipidemia, unspecified; E03.9 Hypothyroidism, unspecified; E55.9 Vitamin D deficiency, unspecified; D50.9 Iron deficiency anemia, unspecified; K21.9 Gastro-esophageal reflux disease without esophagitis; M06.9 Rheumatoid arthritis, unspecified; F03.90 Unspecified dementia, unspecified severity, without behavioral disturbance, psychotic disturbance, mood disturbance, and anxiety; F41.9 Anxiety disorder, unspecified; F32.A Depression, unspecified; W18.30XA Fall on same level, unspecified, initial encounter; Z96.652 Presence of left artificial knee joint; Z79.4 Long term (current) use of insulin; Z91.199 Patient's noncompliance with other medical treatment and regimen due to unspecified reason
CPT/HCPCS: 36415; 80048; 80053; 81001; 82010; 82948; 83036; 83735; 84100; 84484; 85025; 93306; 97110; 97161; 97165; 97530; 97535; A9270; J1650; J1815; J7030

== ENCOUNTER 2023-12-14 15:21 | Observation (INO) | payer MEDICARE, SELFPAY ==
[2023-12-14] VITALS (13 sets, daily range): BP systolic 110–135; BP diastolic 53–84; PULSE 71–92; RESP 15–18; TEMP 36–36.8; O2SAT 93–96; BMI 22.1
[2023-12-14 15:34] LABS: Glucose Point of Care > 450 mg/dl (65-105)
--- NOTE | 2023-12-14 15:44 | ED.GENADULT ---
HPI - General Adult General Chief complaint: Unspecified Stated complaint: high blood sugars Time Seen by Provider: 12/14/23 15:44 History of Present Illness HPI narrative: 77-year-old diabetic presents with high sugar on her monitor today. Patient has a history of dementia has been being taking care of by her granddaughter. Patient called her daughter this morning and said her sugar was high and that her granddaughter's not been around since the last 4 days. Likely she is not taking any of her insulin over last 4 days. Or any of her other medicines. She denies any pain or difficulty breathing nausea vomiting diarrhea problems voiding or stooling, cough runny nose sore throat rash or itching bleeding or bruising dizziness or lightheadedness or problems walking talking seeing or hearing or any other complaints. Her daughter who brought her in does not know any of her blood sugar results other than the 1 today that ran high. She is the power of civil attorney. patient has a history of dementia and normally could remember what she had for breakfast. Related Data Home Medications Medication Instructions Recorded Confirmed memantine 10 mg tablet 10 mg PO DAILY 08/21/23 12/14/23 dapagliflozin propanediol 10 mg 10 mg PO DAILY 12/14/23 12/14/23 tablet (Farxiga) insulin lispro 200 unit/mL (3 mL) 5 unit subcut TID 12/14/23 12/14/23 subcutaneous pen (Humalog KwikPen U-200 Insulin) Allergies Allergy/AdvReac Type Severity Reaction Status Date / Time No Known Allergies Allergy Verified 12/14/23 15:59 Review of Systems Review of Systems: All systems reviewed & are unremarkable except as noted in HPI and below PMFSH Past Medical History Medical History Acute pain of left knee CKD (chronic kidney disease) Dementia GERD without esophagitis HTN (hypertension) Hyperlipidemia associated with type 2 diabetes mellitus Hypothyroidism Insomnia Iron deficiency anemia Kidney disease Memory changes Rheumatoid arthritis Type 2 diabetes mellitus Vision loss Vitamin D deficiency Surgical History Surgical History H/O right nephrectomy H/O total thyroidectomy History of appendectomy History of rotator cuff surgery Hx of cholecystectomy Hx of tonsillectomy Status post total knee replacement, left Family History Family History Father No problems noted. Mother , mother of Alzheimer's Diabetes mellitus Family history of arthritis Other Cancer Social History Social History Social History: Patient designates daughter Allyson as MDM. Patient has been seeing Dr. Melendez as PCP but will see whomever is taking over the practice. Smoking status: Never smoker Second hand tobacco smoke exposure: No Alcohol intake: never Substance use: never Substance use type: does not use Do You Feel Safe in your Home?: Yes Lack of Transportation: No Lack of Food: Never True Current Housing: I Have Housing Concerned About Future Housing: No Difficulty Paying Gas/Electric Bills: No Difficulty Paying for Meds: No Currently Unemployed: No Education: High School Diploma/GED Difficulty w/ Childcare or Family Care: No Occupation/Education: retired Gender identity (if verbalized by the patient): Female Spiritual care concerns: No Exam Narrative: White Elderly female patient with no apparent distress. Head normocephalic, atraumatic.? Eyes conjunctiva pink sclera nonicteric.? Extraocular movements are intact.? Ears externally normal.? Oropharynx is clear with moist mucous membranes without exudates.? Neck is supple nontender no lymphadenopathy.? Back is nontender.? Lungs are clear.? Heart is regular rate and rhythm without murmurs gallops or rubs.? Chest wall nontender
[2023-12-14] MEDS: SODIUM CHLORIDE 0.9% IV 500 ML 999 ML IV CONT (16:13)
[2023-12-14 16:21] LABS: Hematocrit 37.2 % (35.0-42.0); Hemoglobin 11.6 g/dL (11.7-13.8); Mean Corpuscular HGB Conc 31.2 g/dL (32-36); Mean Corpuscular Hemoglobin 24.1 pg (27.0-31.0); Mean Corpuscular Volume 77.2 fL (78.0-102.0); Mean Platelet Volume 9.8 fl (9.2-11.8); Platelet Count Result 189 K/mm3 (150-420); Red Blood Count 4.82 M/mm3 (4.20-5.40); Red Cell Distribution Width 14.9 % (11.6-14.4); White Blood Count 7.9 K/mm3 (4.8-10.8)
[2023-12-14 16:22] LABS: Add Urine Microscopic? NO; Appearance Urine Clear (Clear); Bilirubin Urine Negative (Negative); Blood Urine Negative (Negative); Color Urine Light Yellow (Yellow); Glucose Urine UA 3+ (Negative); Ketones Urine Negative (Negative); Leukocyte Esterase Ur Negative (Negative); Nitrate Urine Negative (Negative); Protein Urine Negative (Negative); Specific Grav Ur <= 1.005 (1.010-1.020); Urobilinogen Urine 0.2 mg/dL (0.2-1.0); pH Urine 6.5 (5.0-8.0)
[2023-12-14 16:39] LABS: HCO3 VBG 25.5 mEq/l (24.0-30.0); PCO2 VBG 37.6 mmHg (42.0-48.0); PO2 VBG 67.9 mmHg (35.0-45.0); pH VBG 7.45 (7.33-7.43)
[2023-12-14 16:40] LABS: Device ROOM AIR
[2023-12-14 17:33] LABS: Hemoglobin A1C 13.6 % (<5.7)
[2023-12-14 17:37] LABS: Beta-Hydroxybutyrate/Acetoacetate 0.25 mmol/L (0.02-0.27)
[2023-12-14 17:41] LABS: NT Pro B Type Natriuretic Pept 520 pg/mL (19.9-100)
[2023-12-14 17:44] LABS: Alanine Aminotransferase 25 U/L (6-35); Alkaline Phosphatase 216 U/L (38-126); Anion Gap 8 mmol/L (4-12); Aspartate Amino Transferase 29 U/L (14-36); Bilirubin,Total 0.5 mg/dL (0.2-1.3); Blood Urea Nitrogen 46 mg/dL (7-17); Calcium 9.4 mg/dL (8.4-10.2); Carbon Dioxide 28 mmol/L (22-30); Chloride 95 mmol/L (98-107); Estimated CRCL calculation 39 ml/min; Estimated Glomerular Filt Rate 60; Glucose 591 mg/dL (65-110); Osmolality Calculated 310 mOsm/kg (285-295); Potassium 4.3 mmol/L (3.4-5.0); Sodium 131 mmol/L (137-145)
[2023-12-14 17:49] LABS: Glucose Point of Care > 450 mg/dl (65-105)
[2023-12-14] MEDS: SODIUM CHLORIDE 0.9% IV 1,000 ML 80 ML IV CONT (18:17)
[2023-12-14] MEDS: INSULIN HUMAN REGULAR (*BKC) 1,000 UNITS/10 ML VIAL 10 UNITS IV PUSH (18:21)
[2023-12-14 19:24] LABS: Glucose Point of Care 318 mg/dl (65-105)
[2023-12-14] MEDS: INSULIN GLARGINE (*BKC) 1,000 UNITS/10 ML VIAL 14 UNITS SUB-Q (21:02)
[2023-12-14 21:06] LABS: Glucose Point of Care 447 mg/dl (65-105)
--- NOTE | 2023-12-14 21:08 | PC.NURSE ---
Patient up to floor via wheelchair from ER. Family present upon admission. Patient given food due to did not have supper. Alert and oriented to self/family. Verbalizes needs. Pleasant and cooperative. No s/s of resp distress. Bowel sounds present. BM upon arrival to floor. Amb with gait belt and cane, gait steady. Skin clean, dry, intact- no open areas observed. Patient and family oriented to floor routines. Belongings within reach. Call light placed in reach. SR up x2.
[2023-12-15] VITALS (7 sets, daily range): BP systolic 119–131; BP diastolic 53–74; PULSE 70–80; RESP 16–20; TEMP 35.9–36.3; O2SAT 94–97
--- NOTE | 2023-12-15 00:15 | PC.NURSE ---
Pt up to the bathroom with standby assist of one and quad cane. Pt voided and returned to bed with the quad cane and standby assist of one.
--- NOTE | 2023-12-15 04:33 | PC.NURSE ---
Pt to the bathroom with cane and standby assist of one. Pt voided and returned to bed with the cane and standby assist of one.
[2023-12-15 06:06] LABS: Hematocrit 39.2 % (35.0-42.0); Hemoglobin 10.9 g/dL (11.7-13.8); Mean Corpuscular HGB Conc 27.8 g/dL (32-36); Mean Corpuscular Hemoglobin 23.6 pg (27.0-31.0); Mean Corpuscular Volume 84.8 fL (78.0-102.0); Mean Platelet Volume 10.2 fl (9.2-11.8); Platelet Count Result 166 K/mm3 (150-420); Red Blood Count 4.62 M/mm3 (4.20-5.40); Red Cell Distribution Width 15.1 % (11.6-14.4); White Blood Count 6.6 K/mm3 (4.8-10.8)
[2023-12-15] MEDS: SODIUM CHLORIDE 0.9% IV 1,000 ML 80 ML IV CONT ×2 (06:50→07:05)
--- NOTE | 2023-12-15 06:50 | PC.NURSE ---
New bag of IV fluid infusing as ordered.
[2023-12-15 07:05] LABS: Anion Gap 6 mmol/L (4-12); Blood Urea Nitrogen 35 mg/dL (7-17); Calcium 8.8 mg/dL (8.4-10.2); Carbon Dioxide 24 mmol/L (22-30); Chloride 105 mmol/L (98-107); Estimated CRCL calculation 39 ml/min; Estimated Glomerular Filt Rate > 60; Glucose 308 mg/dL (65-110); Osmolality Calculated 300 mOsm/kg (285-295); Potassium 4.4 mmol/L (3.4-5.0); Sodium 135 mmol/L (137-145)
[2023-12-15 07:36] LABS: Glucose Point of Care 289 mg/dl (65-105)
--- NOTE | 2023-12-15 08:05 | PM.IMHP ---
H&P: HPI History of Present Illness Date/Time: 12/15/23 08:05 Chief Complaint: hyperglycemia Narrative: This is a 77 year old female with a past medical history of type 2 diabetes, dementia, right nephrectomy, GERD, hypertension, hyperlipidemia, hypothyroidism, iron deficiency anemia, rheumatoid arthritis, chronic kidney disease who presented to the hospital with high blood sugars. patient states that her granddaughter was living with her and up in left about 4 days ago. She likely has not taken her insulin in the last 4 days and reported to her daughter that she does not remember the last time she ate. Her granddaughter was helping with medications and meals. Daughter lives few blocks down from her and is her power of sports attorney. Daughter brought her here for further evaluation. Patient is a poor historian and most of the history and presenting illness was obtained from the chart as well as the daughter. Workup in the hospital included labs which showed a hemoglobin of 11.6, pH is 7.45, sodium 131, chloride 95, EGFR 60, blood sugar was 591, hemoglobin A1c 13.6, serum osmolarity 310, alk-phos 216, proBNP 520. A UA was also obtained which shown a low urine specific gravity of 1.005, 3+ urine glucose, negative ketones, otherwise unremarkable. Patient was given a L of normal saline and started on maintenance IV fluids, 14 units of Lantus, 10 units of regular insulin. On examination this morning patient is alert and oriented x3. She got confused to what hospital she was at but knew she was in the hospital, she knew who the vice president & general manager brand [place] was, the month, and year. Patient states that she was prescribed Farxiga and Jardiance in the past however it was too high cost and did not get it filled. Her last doctor's visit was back in August of this year and patient stated she was only taking Lantus at that time and was unable to take any of the newer medications due to cost. She had taken metformin in the past however that made her hair fall out in clumps according to the patient. Spoke with the patient's daughter who plans on being more involved in her mother's care and finances going forward since she has not been taking her medications as directed. Daughter states she can walk over to her mom's house and give her the Lantus at night as well as make sure that she is checking her blood sugar 3 times a day and getting her regular meals. Patient does want to remain independent and living by herself. I did discuss with the patient and the daughter that if her blood sugars remain out of control that it will affect her kidney function and with her being down to just 1 kidney she is at greater risk. We will continue to adjust her Lantus as her blood sugars are still ranging in the mid 300s today. We may restart her on Farxiga since I called [facility] in [place] and the cost per month is 47.00 a month and the higher cost may have been associated with her deductible at that time. According to [facility] [place] the last time she had her Farxiga was back in February of 2023. Case management updated. Review of Systems Review of Systems: All systems reviewed & are unremarkable except as noted in HPI and below Constitutional: Constitutional: Reports as per HPI and Reports no additional constitutional complaints Eyes: Eyes: Reports as per HPI and Reports no additional eye complaints ENT: Reports system reviewed and no additional complaints, except as documented and Reports as per HPI Cardiovascular: Cardiovascular: Reports as per HPI and Reports no additional cardiovascular complaints Respiratory: Respiratory: Reports as per HPI and Reports no additional respiratory complaints Gastrointestinal: Gastrointestinal: Reports as per HPI and Reports no additional gastrointestinal complaints Genitourinary: Genitourinary: Reports no additional female genitourinary complaints and Reports as per HPI Musculoskeletal: Musculoskeletal: Reports no additional musculoskele
[2023-12-15] MEDS: INSULIN HUMAN LISPRO (*BKC) 1,000 UNITS/10 ML VIAL SUB-Q ×3 (08:17→16:26)
[2023-12-15] MEDS: METOPROLOL TARTRATE 50 MG TAB PO (08:19)
[2023-12-15] MEDS: DULoxetine HCL 30 MG CAPSULE.DR PO ×2 (08:20→16:27)
[2023-12-15] MEDS: INSULIN HUMAN LISPRO (*BKC) 1,000 UNITS/10 ML VIAL 5 UNITS SUB-Q ×2 (11:45→16:27)
[2023-12-15 11:46] LABS: Glucose Point of Care 362 mg/dl (65-105)
[2023-12-15] MEDS: EMPAGLIFLOZIN 10 MG TABLET PO (13:06)
[2023-12-15] MEDS: MEMANTINE 5 MG TABLET 10 MG PO (16:27)
[2023-12-15 16:28] LABS: Glucose Point of Care 302 mg/dl (65-105)
[2023-12-15] MEDS: INSULIN GLARGINE (*BKC) 1,000 UNITS/10 ML VIAL 20 UNITS SUB-Q (20:24)
[2023-12-15 20:25] LABS: Glucose Point of Care 336 mg/dl (65-105)
[2023-12-16 05:54] LABS: Basophils Absolute Auto 0.03 K/mm3 (0.00-0.10); Basophils Percent Auto 0.4 % (0.0-1.0); Eosinophils Percent Auto 1.3 % (1.0-6.0); Hemoglobin 10.5 g/dL (11.7-13.8); Immature Granulocyte Absolute 0.03 K/mm3 (0.00-0.00); Immature Granulocyte Percent A 0.4 % (0.0-0.0); Lymphocytes Percent Auto 52.6 % (18.0-42.0); Mean Corpuscular Hemoglobin 23.9 pg (27.0-31.0); Mean Corpuscular Volume 79.5 fL (78.0-102.0); Monocytes Absolute Auto 0.47 K/mm3 (0.10-0.90); Monocytes Percent Auto 5.9 % (2.0-11.0); Neutrophils Absolute Auto 3.15 K/mm3 (1.70-7.20); Neutrophils Percent Auto 39.4 % (50.0-70.0); Platelet Count Result 158 K/mm3 (150-420); Red Cell Distribution Width 14.9 % (11.6-14.4)
[2023-12-16 06:12] LABS: Alanine Aminotransferase 24 U/L (14-59); Albumin Level 2.8 g/dL (3.4-5.0); Alkaline Phosphatase 101 U/L (46-116); Anion Gap 7 mmol/L (4-12); Aspartate Amino Transferase < 10 U/L (15-37); Bilirubin,Total 0.4 mg/dL (0.00-1.00); Blood Urea Nitrogen 29 mg/dL (7-18); Calcium 8.8 mg/dL (8.5-10.1); Chloride 103 mmol/L (98-108); Estimated CRCL calculation 33 ml/min; Estimated Glomerular Filt Rate 56; Glucose 252 mg/dL (70-99); Osmolality Calculated 300 mOsm/kg (285-295); Potassium 4.4 mmol/L (3.5-5.1); Sodium 138 mmol/L (136-145); Total Protein 5.6 g/dL (6.4-8.2)
[2023-12-16 06:29] LABS: Carbon Dioxide 28 mmol/L (21-32)
[2023-12-16 07:42] LABS: Glucose Point of Care 216 mg/dl (65-105)
[2023-12-16 08:00] VITALS: BP 112/54; PULSE 80; RESP 18; TEMP 36.3; O2SAT 98
[2023-12-16 08:23] VITALS: PULSE 88
[2023-12-16] MEDS: METOPROLOL TARTRATE 50 MG TAB PO (08:23)
[2023-12-16] MEDS: EMPAGLIFLOZIN 10 MG TABLET PO (08:25)
[2023-12-16] MEDS: INSULIN HUMAN LISPRO (*BKC) 1,000 UNITS/10 ML VIAL SUB-Q ×2 (08:26→11:52)
[2023-12-16] MEDS: INSULIN HUMAN LISPRO (*BKC) 1,000 UNITS/10 ML VIAL 5 UNITS SUB-Q ×2 (08:28→11:53)
[2023-12-16 11:24] LABS: Glucose Point of Care 372 mg/dl (65-105)
--- NOTE | 2023-12-16 13:13 | PM.DS ---
DS: Admitting Diagnosis Discharge Date 12/16/23 Admitting Diagnosis Controlled diabetes mellitus hypertension dementia DS: Summary Hospital Course Reason for hospitalization: Controlled diabetes mellitus hypertension dementia Hospital Course: 12/15/23: This is a 77 year old female with a past medical history of type 2 diabetes, dementia, right nephrectomy, GERD, hypertension, hyperlipidemia, hypothyroidism, iron deficiency anemia, rheumatoid arthritis, chronic kidney disease who presented to the hospital with high blood sugars.? patient states that her granddaughter was living with her and up in left about 4 days ago.? She likely has not taken her insulin in the last 4 days and reported to her daughter that she does not remember the last time she ate. ? Her granddaughter was helping with medications and meals.? Daughter lives few blocks down from her and is her power of channel sales director. Daughter brought her here for further evaluation.? Patient is a poor historian and most of the history? and presenting illness was obtained from the chart as well as the daughter.? Workup in the hospital included? labs which showed a hemoglobin of? 11.6, pH is 7.45, sodium 131, chloride 95, EGFR 60, blood sugar was 591, hemoglobin A1c 13.6, serum osmolarity 310, alk-phos 216, proBNP 520.? A UA was also obtained which shown a low urine specific gravity of 1.005, 3+ urine glucose, negative ketones, otherwise unremarkable.? Patient was given a L of normal saline and started on maintenance IV fluids, 14 units of Lantus, 10 units of regular insulin.? On examination this morning patient is alert and oriented x3.? She got confused to what hospital she was at but knew she was in the hospital, she knew who the core java engineer was, the month, and year. ? Patient states that she was prescribed Farxiga and Jardiance in the past however it was too high cost and did not get it filled.? Her last doctor's visit was back in August of this year and patient stated she was only taking Lantus at that time and was unable to take any of the newer medications due to cost.? She had taken metformin in the past however that made her hair fall out in clumps according to the patient. Spoke with the patient's daughter who plans on being more involved in her mother's care? and finances going forward since she has not been taking her medications as directed.? Daughter states she can walk over to her mom's house and give her the Lantus at night as well as make sure that she is checking her blood sugar 3 times a day and getting her regular meals.? Patient does want to remain independent and living by herself. I did discuss with the patient and the daughter that if her blood sugars remain out of control that it will affect her kidney function and with her being down to just 1 kidney she is at greater risk.? We will continue to adjust her Lantus as her blood sugars are still ranging in the mid 300s today.? We may restart her on Farxiga since [facility] called [facility] in [place] and the cost per month is 47.00 a month and the higher cost may have been associated with her deductible at that time.? [facility] to [facility] [place] the last time she had her Farxiga was back in February of 2023. Case management updated. 12/16/23: patient denies any new complaints today. Her blood sugars are ranging 216-252 today. We will go ahead and increase her Lantus to 24 units at bedtime. This was discussed with the patient and the patient's daughter today. Patient is stable for discharge today. She will need to olive picker her prescription for the Farxiga which was called to her pharmacy and follow up with her primary care physician in a week. I placed a call to her primary care physician as well to discuss these new changes as patient has been non compliant at home with checking her blood sugars and receiving her medications. The daughter states she is going to be more involved in only lives a few blocks down from her. Patient wishes to remain inde
--- NOTE | 2023-12-16 13:52 | PC.NURSE ---
Went over discharge instructions with patient and daughter. Daughter states understanding of all instructions. Patient taken by wheelchair to front door with family in stable condition. Patient belongings released with patient.
--- NOTE | 2023-12-17 08:51 | PC.NURSE ---
Discharge call back attempted, no answer
--- NOTE | 2023-12-18 09:21 | PC.NURSE ---
Discharge call back completed, spoke with daughter, states she is still confused at times and weak, no questions regarding dc instructions
== END 2023-12-16 13:40 | disposition home or self-care (01) ==
LOC: CHSED 18:05 → CHS2ND 18:16
PROVIDERS: Admitting Provider Internal Medicine; Emergency Provider Emergency Medicine; PCP Nurse Practitioner Family; Visit Provider Nurse Practitioner Acute Care
DX: E11.65 Type 2 diabetes mellitus with hyperglycemia (principal); I12.9 Hypertensive chronic kidney disease with stage 1 through stage 4 chronic kidney disease, or unspecified chronic kidney disease; N18.9 Chronic kidney disease, unspecified; E11.22 Type 2 diabetes mellitus with diabetic chronic kidney disease; E78.5 Hyperlipidemia, unspecified; E55.9 Vitamin D deficiency, unspecified; E03.9 Hypothyroidism, unspecified; D50.9 Iron deficiency anemia, unspecified; M06.9 Rheumatoid arthritis, unspecified; K21.9 Gastro-esophageal reflux disease without esophagitis; T76.01XA Adult neglect or abandonment, suspected, initial encounter; F03.90 Unspecified dementia, unspecified severity, without behavioral disturbance, psychotic disturbance, mood disturbance, and anxiety; Z96.652 Presence of left artificial knee joint; Z90.5 Acquired absence of kidney; Z79.4 Long term (current) use of insulin
CPT/HCPCS: 36415; 80048; 80053; 81003; 82010; 82803; 82948; 83036; 83880; 85025; 85027; 96361; 96374; 99285; A9270; G0378; J1815; J7030; J7040